=== PATIENT | male | born 1940 | race Caucasian/White ===

== ENCOUNTER 2018-09-02 00:39 | Outpatient (CLI) | payer MEDICARE, SELFPAY ==
[2018-09-02 08:07] LABS: HCT 40.1 % (40.0-50.0); HGB 13.1 g/dL (13.5-17.5); Mean Corp. HGB Concentration 32.7 g/dL (32.0-36.0); Mean Corpuscular Hemoglobin 32.2 pg (27.0-33.0); Mean Corpuscular Volume 98.5 fL (80-95); Platelet Count 262 x1000/uL (130-400); RBC 4.07 m/cumm (4.50-6.00); RBC Distribution Width 13.9 % (11.8-14.1); White Blood Cell Count 7.07 k/cumm (4.4-10.8)
[2018-09-02 09:21] LABS: ALT 32 U/L (12-78); AST 24 U/L (15-37); Albumin 3.4 g/dL (3.4-5.0); Alkaline Phosphatase 116 U/L (46-116); Anion Gap 8.3 mmol/L (3-11); BUN 15 mg/dL (7-18); Bilirubin, Total 0.7 mg/dL (0.2-1.0); CO2 29.7 mmol/L (21.0-32.0); CREATININE 1.12 mg/dL (0.70-1.30); Calcium 8.8 mg/dL (8.5-10.1); Chloride 104 mmol/L (98-107); Cholesterol 125 mg/dL (50-200); Glucose 87 mg/dL (70-100); HDL Cholesterol 44 mg/dL (40-60); LDL CHOLESTEROL 70 mg/dL (<100); Potassium 4.2 mmol/L (3.5-5.1); Sodium 142 mmol/L (136-145); TSH (W/Ref FT4) 5.84 uIU/mL (0.358-3.74); Total Protein 6.7 g/dL (6.4-8.2); Triglyceride 57 mg/dL (30-150)
[2018-09-02 09:41] LABS: FREE T4 0.93 ng/dL (0.76-1.46)
== END 2018-09-02 00:59 ==
PROVIDERS: PCP Nurse Practitioner; Visit Provider Nurse Practitioner
DX: E78.00 Pure hypercholesterolemia, unspecified (principal); E03.9 Hypothyroidism, unspecified; I10 Essential (primary) hypertension
CPT/HCPCS: 36415; 80053; 80061; 83721; 85027; 84439; 84443

== ENCOUNTER 2019-05-28 10:58 | Outpatient (REF) | payer MEDICARE, SELFPAY | END 2019-05-28 11:18 | LOC: LBN 10:58 | PROVIDERS: PCP Nurse Practitioner; Visit Provider Nurse Practitioner | DX: R82.90 Unspecified abnormal findings in urine (principal) | CPT/HCPCS: 87086 ==

== ENCOUNTER 2019-07-31 07:05 | Outpatient (CLI) | payer MEDICARE, SELFPAY ==
[2019-07-31 08:54] LABS: ALT 26 U/L (16-63); AST 23 U/L (15-37); Albumin 3.5 g/dL (3.4-5.0); Alkaline Phosphatase 120 U/L (46-116); Anion Gap 8.4 mmol/L (3-11); BUN 11 mg/dL (7-18); Bilirubin, Total 0.7 mg/dL (0.2-1.0); CO2 29.6 mmol/L (21.0-32.0); CREATININE 1.18 mg/dL (0.70-1.30); Calcium 8.7 mg/dL (8.5-10.1); Calculated LDL 82 mg/dL; Chloride 106 mmol/L (98-107); Cholesterol 137 mg/dL (<200); Estimated GFR 59.25 (mL/min/1.73m2); Glucose 81 mg/dL (74-106); HDL Cholesterol 40 mg/dL (40-60); Potassium 4.3 mmol/L (3.5-5.1); Sodium 144 mmol/L (136-145); TSH (W/Ref FT4) 3.66 uIU/mL (0.36-3.74); Total Protein 6.6 g/dL (6.4-8.2); Triglyceride 75 mg/dL (<150)
== END 2019-07-31 07:25 ==
PROVIDERS: PCP Nurse Practitioner; Visit Provider Nurse Practitioner
DX: E78.5 Hyperlipidemia, unspecified (principal); E03.9 Hypothyroidism, unspecified; I10 Essential (primary) hypertension
CPT/HCPCS: 36415; 80053; 80061; 84443

== ENCOUNTER 2020-10-26 03:16 | Outpatient (CLI) | payer MEDICARE, SELFPAY ==
[2020-10-26 08:41] LABS: HCT 39.9 % (40.0-50.0); HGB 12.8 g/dL (13.5-17.5); MCH 31.8 pg (27.0-33.0); MCHC 32.1 % (32.0-36.0); MCV 99.3 fL (80-95); MPV 10.5 fL (8.0-11.0); Platelet Count 242 10^3/uL (130-400); RBC 4.02 10^6/uL (4.36-5.78); RDW 14.6 % (11.8-14.1); RDW-SD 54.1 fL; WBC 8.44 10^3/uL (4.4-10.8)
[2020-10-26 09:56] LABS: ALT 31 U/L (16-63); AST 21 U/L (15-37); Albumin 3.5 g/dL (3.4-5.0); Alkaline Phosphatase 115 U/L (46-116); Anion Gap 6.2 mmol/L (3-11); BUN 16 mg/dL (7-18); Bilirubin, Total 0.6 mg/dL (0.2-1.0); CO2 30.8 mmol/L (21.0-32.0); CREATININE 1.2 mg/dL (0.70-1.30); Calcium 8.8 mg/dL (8.5-10.1); Calculated LDL 82 mg/dL (<100); Chloride 102 mmol/L (98-107); Cholesterol 149 mg/dL (<200); Estimated GFR 57.96 (mL/min/1.73m2); Glucose 84 mg/dL (74-106); HDL Cholesterol 47 mg/dL (40-60); Potassium 4.4 mmol/L (3.5-5.1); Sodium 139 mmol/L (136-145); TSH (W/Ref FT4) 1.83 uIU/mL (0.36-3.74); Total Protein 6.6 g/dL (6.4-8.2); Triglyceride 102 mg/dL (<150)
== END 2020-10-26 03:17 | disposition home or self-care (01) ==
LOC: LBO 03:16
PROVIDERS: Nurse Practitioner; PCP Nurse Practitioner Adult Health; Visit Provider Nurse Practitioner Adult Health
DX: I10 Essential (primary) hypertension (principal); E78.00 Pure hypercholesterolemia, unspecified; E78.2 Mixed hyperlipidemia; N40.0 Benign prostatic hyperplasia without lower urinary tract symptoms; E03.9 Hypothyroidism, unspecified
CPT/HCPCS: 36415; 80053; 80061; 85027; 84443

== ENCOUNTER 2020-11-05 04:52 | Emergency (ER) | payer MEDICARE, SELFPAY ==
[2020-11-05] VITALS (48 sets, daily range): BP systolic 127–183; BP diastolic 84–108; PULSE 61–85; RESP 11–20; TEMP 36.6; O2SAT 92–99
--- NOTE | 2020-11-05 04:54 | ED.GENADUL_ITS ---
Discharge Plan Disposition Patient Disposition: HOME Condition: Good Discharge Details Clinical Impression: Positional lightheadedness Primary Care Provider: Diane Ochoa ED Provider: Azeem Cronin Home Meds and New Rx's Prescriptions: Continued atorvastatin 40 mg tablet 40 mg PO DAILY Qty: 90 RF: 3 doxazosin [Cardura] 4 mg tablet 4 mg PO QHS Qty: 90 RF: 4 levothyroxine 75 mcg tablet 75 mcg PO DAILY Qty: 90 RF: 3 fluticasone propionate 50 mcg/actuation spray,suspension 2 spray VERONIKA DAILY Qty: 18.2 RF: 12 gabapentin 300 mg capsule 600 mg PO TID Qty: 180 RF: 3 sucralfate 1 gram tablet 1 g PO QID Qty: 360 RF: 3 paroxetine HCl 10 mg tablet 10 mg PO DAILY Qty: 90 RF: 3 Discharge Instructions Additional Instructions: Your work-up here today including EKG, laboratory studies and urine studies look good. Blood pressure has been running a little high so recommend checking at home once a day periodically and making a log. Follow-up with primary care if continued symptoms. Return to ED for neurologic changes, passing out, chest pain, shortness of breath, other concerns Referrals: Diane Ochoa, [facility] [Primary Care Provider] - Medical Decision Making <Naren Mena MD - Last Filed: 11/05/20 06:35> Patient presents to ED with complaint of dizziness. In parsing this out, it does not appear to be vertigo but more syncopal type symptoms. Indeed, he is describing orthostatic changes when trying to stand. No associated neurologic changes. Pain and numbness in his lower extremities is not new and is currently being treated with steroids and gabapentin. He has no neurologic deficits. We will get orthostatics. His EKG shows no acute changes. Will obtain laboratory studies and urinalysis and observe over the couple of hours for any evidence of arrhythmia. 06:30 -patient is not orthostatic though his blood pressure is elevated compared to what he is normally, according to him. Systolic does go down with standing but there is no change in his pulse and he is not on beta-rusty. There have been no arrhythmias. Laboratory studies are unremarkable. No significant electrolyte abnormalities, anemia. Troponin is negative. Urinalysis is negative. I have discussed all results with patient and . Patient now more focused on the pain that he feels in his legs below his knees. This sounds more neuropathic in nature and has been present previously. He has actually been on gabapentin for some time. Patient ambulated to bathroom with no symptoms. At this point plan is for repeat EKG and troponin at 8 AM. If unchanged and negative plan discharge home with follow-up at primary care. Monitor blood pressures at home. Medical Records Medical records reviewed: Yes I reviewed the patient's medical records. Lab Data Lab results reviewed: Yes I reviewed the patient's lab results. ECG Data Attestation: I personally reviewed and interpreted this ECG (s) as follows: Prior ECG tracings: not available for review Interpretation: see EKG <Azeem Cronin MD - Last Filed: 11/05/20 08:46> pt remains stable without deficits on neuro exam ambulating without assistance. second troponin and ecg unchanged, discussed with pt and he is comfortable with discharge as discussed with Dr. Mena and will follow up with his primary care provider this week, and customary return precautions given ECG Data Attestation: I personally reviewed and interpreted this ECG (s) as follows: Prior ECG tracings: not available for review Interpretation: sinus rhythm, rate of 65, pr 201, no acute changes from first ekg HPI <Naren Mena MD - Last Filed: 11/05/20 06:35> General Mode of arrival: ambulatory . Date/Time Provider Initiated Documentation: 11/05/20 04:54 . Limitations to Documentation: no limitations . Information obtained by: patient, RN notes reviewed and old records reviewed . HPI Narrative: Patient presents to ED with complaint of dizziness. Patient reports getting up to go to the bathroom this morning. When he stood up felt dizzy, lightheaded, weak and felt like he might pass out. He had to sit down. He has intermittently had pain and numbness in his lower legs since his second Covid vaccine. He experienced this this morning as well, but again this is not a new sensation. He did not feel spinning sensation and he was able to ambulate but felt extremely weak in the legs, unsteady. He did not feel like he was intoxicated and was not staggering. He denies having any chest pain or pressure. He did have a mild headache which is resolved. He had mild nausea but no vomiting. He has not been ill and denies any vomiting or diarrhea. He is drinking well. He has not a known diabetic. He has no fever or urinary symptoms. He has no back pain. He was ambulatory into the ED without diffic ulty Related Data Home Medications Medication Instructions Recorded Confirmed fluticasone propionate 50 2 spray VERONIKA DAILY #18.2 ml 06/01/20 11/05/20 mcg/actuation nasal spray,suspension gabapentin 300 mg capsule 600 mg PO TID #180 tab-cap 06/01/20 11/05/20 sucralfate 1 gram tablet 1 g PO QID #360 tab 06/08/20 11/05/20 atorvastatin 40 mg tablet 40 mg PO DAILY #90 tab-cap 09/12/20 11/05/20 doxazosin 4 mg tablet 4 mg PO QHS #90 tab 09/12/20 11/05/20 levothyroxine 75 mcg tablet 75 mcg PO DAILY #90 tab-cap 09/12/20 11/05/20 paroxetine HCl 10 mg tablet 10 mg PO DAILY #90 tab 10/24/20 11/05/20 Previous Rx's Medication Instructions Recorded fluticasone propionate 50 2 spray VERONIKA DAILY #18.2 ml 06/01/20 mcg/actuation nasal spray,suspension gabapentin 300 mg capsule 600 mg PO TID #180 tab-cap 06/01/20 sucralfate 1 gram tablet 1 g PO QID #360 tab 06/08/20 atorvastatin 40 mg tablet 40 mg PO DAILY #90 tab-cap 09/12/20 doxazosin 4 mg tablet 4 mg PO QHS #90 tab 09/12/20 levothyroxine 75 mcg tablet 75 mcg PO DAILY #90 tab-cap 09/12/20 paroxetine HCl 10 mg tablet 10 mg PO DAILY #90 tab 10/24/20 Allergies Allergy/AdvReac Type Severity Reaction Status Date / Time diclofenac AdvReac Intermediate gi upset Verified 11/05/20 05:03 alcohol AdvReac Unknown hx of etoh Verified 11/05/20 05:03 abuse Review of Systems <Naren Mena MD - Last Filed: 11/05/20 06:35> Narrative: As documented in HPI otherwise negative as below. 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 Father No problems noted. Grandfather No problems noted. Grandfather No problems noted. Grandmother No problems noted. Grandmother No problems noted. Social History Smoking/Tobacco Use Status: Former Tobacco Use Quit Date: 07/15/89 Pack-years: 25 Smoking risk assessment performed?: Yes Alcohol Intake: former Drug use: Never Substance use type: does not use Housing: apartment current occupation: care takers at [employer] Working smoke detector in home: Yes Carbon monox detector in home: Yes Do you feel safe at home: Yes Do you feel safe in your relationship?: Yes Exam <Naren Mena MD - Last Filed: 11/05/20 06:35> Narrative Exam Narrative: Const: WDWN elderly male in NAD. HEENT: NC/AT. Normal facial exam. Eyes: PERRL and EOMI. No nystagmus. Normal conjunctiva and sclera. Neck: Supple. Trachea midline. Lungs: Normal respiratory effort. Lungs are clear. Cor: RRR with murmur heard at apex. Good radial pulses. GI: Soft. NT/ND. No guarding or rebound. Neuro: A+O x 3. Normal speech, mentation, gait. Cranial nerves II - XII grossly intact. No gross motor or sensory deficit. Ext: No C/C/E. Skin: Warm and dry without rash. Sign Out <Naren Mena MD - Last Filed: 11/05/20 06:35> Sign Out Data: Sign Out Comment: Pending repeat EKG and troponin Last updated by Naren Mena MD at 11/05/20 07:45
--- NOTE | 2020-11-05 05:00 | RT.EKG_ITS ---
APPROVED REPORT Exam: Resting ECG Patient Location: E HR:70 bpm ECG Measurements Heart Rate 70 AXIS IN 203 P 1 QRSd 90 QRS -33 QT 419 T 56 QTc 452 Conclusion Sinus rhythm...normal P axis, V-rate 60- 99 Inferior infarct, old...Q >35mS, II III aVF Consider anterior infarct...Q >30mS in V2-V5 I have reviewed and interpreted ECG and agree with software generated interpretation.
[2020-11-05 05:24] LABS: Abs Immature Grans 0.02 10^3/uL (0.0-0.06); Absolute Basophil Count 0.07 10^3/uL (0.0-0.2); Absolute Eosinophil Count 0.37 10^3/uL (0.0-0.7); Absolute Monocyte Count 0.53 10^3/uL (0.1-0.8); Absolute Neutrophil Count 3.24 10^3/uL (1.2-6.7); Basophils % 1.2; Eosinophils % 6.2; HCT 40.5 % (40.0-50.0); HGB 12.8 g/dL (13.5-17.5); Immature Grans % 0.3; Lymphocytes % 28.7; MCH 31.8 pg (27.0-33.0); MCHC 31.6 % (32.0-36.0); MCV 100.7 fL (80-95); MPV 10.2 fL (8.0-11.0); Monocytes % 8.9; Neutrophils % 54.7; Nucleated RBC 0 %; Platelet Count 237 10^3/uL (130-400); RBC 4.02 10^6/uL (4.36-5.78); RDW 14.3 % (11.8-14.1); RDW-SD 53.5 fL; WBC 5.93 10^3/uL (4.4-10.8)
[2020-11-05 05:38] LABS: ALT 24 U/L (16-63); AST 18 U/L (15-37); Albumin 3.2 g/dL (3.4-5.0); Alkaline Phosphatase 118 U/L (46-116); Anion Gap 5.4 mmol/L (3-11); BUN 9 mg/dL (7-18); Bilirubin, Total 0.4 mg/dL (0.2-1.0); CO2 30.6 mmol/L (21.0-32.0); CREATININE 1.4 mg/dL (0.70-1.30); Calcium 8.2 mg/dL (8.5-10.1); Chloride 106 mmol/L (98-107); Estimated GFR 48.52 (mL/min/1.73m2); Glucose 93 mg/dL (74-106); Magnesium 1.8 mg/dL (1.8-2.4); Potassium 4.5 mmol/L (3.5-5.1); Sodium 142 mmol/L (136-145); Total Protein 6.4 g/dL (6.4-8.2); Troponin I < 0.05 ng/mL (<0.06)
[2020-11-05 06:13] LABS: Bilirubin Negative (Negative); Blood Negative (Negative); Clarity Clear (Clear); Glucose Negative (Negative); Ketones Negative (Negative); Leukocyte Esterase Negative (Negative); Nitrite Negative (Negative); Urobilinogen 0.2 EU/dL (Up TO 0.2); pH 7.5 (5-8)
--- NOTE | 2020-11-05 07:45 | RT.EKG_ITS ---
APPROVED REPORT Exam: Resting ECG Patient Location: E HR:65 bpm ECG Measurements Heart Rate 65 AXIS HI 201 P 10 QRSd 85 QRS -30 QT 418 T 47 QTc 435 Conclusion Sinus rhythm...normal P axis, V-rate 60- 99 Ventricular premature complex...V complex w/ short R-R interval Left axis deviation...QRS axis (-30,-90) Consider anterior infarct...Q >30mS in V2-V5
[2020-11-05 08:26] LABS: Troponin I < 0.05 ng/mL (<0.06)
== END 2020-11-05 08:49 | disposition home or self-care (01) ==
PROVIDERS: Emergency Medicine; Emergency Provider Emergency Medicine; PCP Nurse Practitioner Adult Health
DX: R42 Dizziness and giddiness (principal); R03.0 Elevated blood-pressure reading, without diagnosis of hypertension
CPT/HCPCS: 80053; 93005; 99283; 81003; 83735; 84484; 85025; 93010

== ENCOUNTER 2021-02-02 03:30 | Outpatient (CLI) | payer MEDICARE, SELFPAY ==
[2021-02-02 10:12] LABS: Iron 97 ug/dL (65-175); Total Iron Binding Capacity 281 ug/dL (250-450)
[2021-02-02 10:37] LABS: Anion Gap 8.8 mmol/L (3-11); BUN 8 mg/dL (7-18); CO2 29.2 mmol/L (21.0-32.0); CREATININE 1.3 mg/dL (0.70-1.30); Chloride 104 mmol/L (98-107); Estimated GFR 52.85 (mL/min/1.73m2); Ferritin 24 ng/mL (26-388); Folate 5.1 ng/mL (8.6-20.0); Glucose 86 mg/dL (74-106); Potassium 4.4 mmol/L (3.5-5.1); Sodium 142 mmol/L (136-145); Vitamin B12 822 pg/mL (193-986)
== END 2021-02-02 03:31 | disposition home or self-care (01) ==
LOC: LBO 03:30
PROVIDERS: PCP Nurse Practitioner Adult Health; Visit Provider Nurse Practitioner Adult Health
DX: I10 Essential (primary) hypertension (principal); D64.9 Anemia, unspecified; R71.8 Other abnormality of red blood cells
CPT/HCPCS: 36415; 80048; 82607; 82728; 82746; 83540; 83550

== ENCOUNTER 2021-03-09 15:38 | Outpatient (REF) | payer MEDICARE, SELFPAY ==
[2021-03-11 17:34] LABS: COVID-19 RT-PCR UVMMC Result Positive (Negative)
== END 2021-03-09 15:39 | disposition home or self-care (01) ==
LOC: LBN 15:38
PROVIDERS: PCP Nurse Practitioner Adult Health; Visit Provider Nurse Practitioner
DX: Z20.822 Contact with and (suspected) exposure to COVID-19 (principal)
CPT/HCPCS: U0003

== ENCOUNTER 2021-11-02 02:28 | Outpatient (CLI) | payer MEDICARE, SELFPAY ==
[2021-11-02 09:02] LABS: Anion Gap 0.8 mmol/L (3-11); BUN 12 mg/dL (7-18); CO2 32.2 mmol/L (21.0-32.0); CREATININE 1.1 mg/dL (0.70-1.30); Calcium 8.3 mg/dL (8.5-10.1); Calculated LDL 83 mg/dL (<100); Chloride 104 mmol/L (98-107); Cholesterol 147 mg/dL (<200); Glucose 84 mg/dL (74-106); HDL Cholesterol 44 mg/dL (40-60); Sodium 137 mmol/L (136-145); TSH (W/Ref FT4) 2.15 uIU/mL (0.36-3.74); Triglyceride 101 mg/dL (<150); Vitamin B12 682 pg/mL (193-986)
== END 2021-11-02 02:29 | disposition home or self-care (01) ==
LOC: LBO 02:28
PROVIDERS: PCP Nurse Practitioner Adult Health; Referring Provider Nurse Practitioner Adult Health; Visit Provider Nurse Practitioner Adult Health
DX: E78.00 Pure hypercholesterolemia, unspecified; D64.9 Anemia, unspecified; E03.9 Hypothyroidism, unspecified; Z51.81 Encounter for therapeutic drug level monitoring
CPT/HCPCS: 36415; 80048; 80061; 82607; 84443

== ENCOUNTER → 2022-01-26 09:22 | Outpatient (CLI) | payer MEDICARE, SELFPAY ==
--- NOTE | 2022-01-26 09:00 | DI.RAD_ITS ---
Exam(s) XR CHEST 2V PA LATERAL EXAM: XR CHEST 2V PA LATERAL CLINICAL HISTORY: 1 month of cough, dyspnea, bronchitis, J40 TECHNIQUE: 2D digital imaging was performed of the chest. Two images were obtained. PA and lateral views were obtained. COMPARISON: CR CHEST 2 VIEWS PA,LAT from 06/21/2010 FINDINGS: There is poor inspiration with crowding of the vasculature. MEDIASTINUM: Normal. HEART: Normal. PULMONARY VASCULATURE: Normal. LUNGS: Nonspecific increased opacities are seen in the lung bases. Pneumonia cannot be excluded. PLEURAL SPACE: No pleural effusion or pneumothorax. BONE:Within normal limits for the patient's age. OTHER FINDINGS:Normal. IMPRESSION: Nonspecific basilar opacities. This may in part be due to poor inspiration, but an infectious or inf lammatory process cannot be excluded. Please correlate clinically. DATA REPOSITORY: RADIATION DOSE DELIVERED:
--- OUTSIDE RECORDS SUMMARY | 2022-01-26 09:30 | XMS_ITS | Clinical Summary ---
:1940 Author Organization [facility] [place] [address] Care Team Providers Name Role Phone Chantel Smith Benja DAN Primary Care Provider Allergies No known active allergies Medications Medication Sig Dispensed Refills Start Date End Date Status doxazosin (CARDURA) 4 Take 4 mg by 0 Active mg tablet mouth nightly. atorvastatin (Lipitor) TAKE ONE TABLET 0 01/10/2021 Active 40 mg Tablet BY MOUTH EVERY DAY fluticasone propionate INSTILL 2 SPRAYS 0 03/17/2021 Active (Flonase) 50 IN EACH NOSTRIL mcg/actuation [place], ONCE DAILY Suspension folic acid (Folvite) 1 TAKE ONE TABLET 0 03/07/2021 Active mg Tablet BY MOUTH EVERY DAY gabapentin (Neurontin) TAKE TWO CAPSULES 0 Active 300 mg Capsule BY MOUTH THREE TIMES A DAY levothyroxine TAKE ONE TABLET 0 01/27/2021 Active (Synthroid) 75 mcg BY MOUTH EVERY Tablet DAY losartan (Cozaar) 50 mg TAKE ONE TABLET 0 12/19/2020 Active Tablet BY MOUTH EVERY DAY FOR BLOOD PRESSURE ondansetron (Zofran) 4 TAKE 1 TABLET BY 0 12/20/2020 Active mg Tablet MOUTH 3 TIMES A DAY NEEDED FOR NAUSEA AND VOMITING PARoxetine (Paxil) 10 TAKE ONE TABLET 0 03/07/2021 Active mg Tablet BY MOUTH EVERY DAY FOR ANXIETY sucralfate (Carafate) 1 TAKE ONE TABLET 0 03/03/2021 Active gram Tablet BY MOUTH FOUR TIMES A DAY triamcinolone (Kenalog) Apply twice daily 15 g 1 03/31/20 21 Active 0.1 % Cream to left upper buttock for 2-3 weeks until clears then D/C Active Problems Problem Noted Date GERD (gastroesophageal reflux disease) 03/25/2012 IBS (irritable bowel syndrome) 03/25/2012 Anxiety 03/25/2012 Allergic rhinitis 03/25/2012 H/O alcohol abuse 03/25/2012 Chronic back pain 03/25/2012 Overview: Chronic diffuse back pain Asthma 03/25/2012 BPH (benign prostatic hyperplasia) 03/25/2012 PVC (premature ventricular contraction) 03/25/2012 H/O sciatica 03/25/2012 Social History Tobacco Use Types Packs/Day Years Used Date Former Smoker Smokeless Tobacco: Never Used Sex Assigned at Date Recorded Not on file Last Filed Vital Signs Vital Sign Reading Time Taken Comments Blood Pressure 129/78 03/25/2012 12:18 PM EDT Pulse 68 03/25/2012 12:18 PM EDT Temperature - - Respiratory Rate - - Oxygen Saturation - - Inhaled Oxygen Concentration - - Weight 81.6 kg (180 lb) 03/25/2012 12:18 PM EDT Height 175.3 cm (5' 9) 03/25/2012 12:18 PM EDT Body Mass Index 26.58 03/25/2012 12:18 PM EDT Plan of Treatment Health Maintenance Due Date Last Done Comments Covid-19 Vaccine (#1) 1945 Pneumoccocal Vaccine: 65+ (1 - PCV) 1944 Tdap adult 1957 Tetanus vaccine 1957 Zoster vaccine (1 of 2) 1988 Advance Directive 1993 Influenza (Flu) vaccine (1 of 1 - Influenza standard 03/15/2022 series) Insurance Payer Benefit Plan / Subscriber ID Effective Dates Phone Addre ss Type Group MEDICARE MEDICARE PART A [id number] 2020-Presen [id number] [facility] [place] [address] Care Teams Assistant Property Manager Relationship Specialty Start Date End Date Chantel Smith APRN PCP - General Internal Medicine 02/23/[address] [place] [address]
--- OUTSIDE RECORDS SUMMARY | 2022-01-26 09:30 | XMS_ITS | Encounter Summary ---
:1940 [place] [address] Care Team Providers Name Role Phone Sonny Tubbs DO Primary Care Provider Encounter Details Date Type Department Care Team Description 03/28/2012 Telephone [place] [facility] [place] Cosme APRN [facility] [place] [address] [place] [address] [place] [address] [phone] (Wo rk) Social History Tobacco Use Types Packs/Day Years Used Date Never Smoker Sex Assigned at Date Recorded Not on file documented as of this encounter Miscellaneous Notes Telephone Encounter - Judy Cosme APRN - 03/28/2012 2:15 PM EDT Called Mr. Cifuentes with regards to his lab results. He reports that Protonix did not agree with him since he felt awful while taking it, caused more burning. However, has noted that with adhering the GERD dietary and lifestyle modifications less symptoms. Used to eat then go to bed two hours later. Preston mmended restarting omeprazole and to call me in 2 weeks. If symptoms persists then will schedule forEGD with Liu pH study. documented in this encounter Plan of Treatment Not on filedocumented as of this encounter Visit Diagnoses Not on filedocumented in this encounter Care Teams Ocean Export Coordinator Relationship Specialty Start Date End Date Sonny Tubbs DO PCP - General 01/18/12 02/22/[address] [place] [address] documented as of this encounter
--- OUTSIDE RECORDS SUMMARY | 2022-01-26 09:30 | XMS_ITS | Encounter Summary ---
:1940 Author Organization [facility] Address [address] [place] [address] Care Team Providers Name Role Phone Unavailable Primary Care Provider Unavailable Encounter Details Date Type Department Care Team Description 03/14/2009 Orders Only [facility] Mu Glaser MD Laboratory Services - [address] [place] [address] [place] [address] [place] [address] [phone] Social History Tobacco Use Types Packs/Day Years Used Date Never Assessed Sex Assigned at Date Recorded Not on file documented as of this encounter Plan of Treatment Not on filedocumented as of this encounter Procedures Procedure Name Priority Date/Time Associated Diagnosis Comme [facility] SURGICAL PATHOLOGY Routine 03/14/2009 0:00 EDT Re sults for this procedure are i n the results section. documented in this encounter Results SURGICAL PATHOLOGY (03/14/2009 0:00 EDT) Pathology Report: SURGICAL PATHOLOGY REPORT ? ES MORRIS Reports generated via electr multiBIND biotec interface contain original data; ? LAB however they are lacking the format of the original report. ? Caution should be taken when reading/interpreting unformatted reports. ? Name: ? ARNOLD, IAN ? Accession #: ? [id number] ? : ? 1940 (Age: 68) ??M ? Collec t Date: ? 03/14/2009 ? Location: ? [facility] ? R eceive Date: ? 03/14/2009 ? Provider: WILLIAM FREDERICKELSON MD ? Copy to: LARA F FABIO DO ? Final Pathologic Diagnosis: ? Esophagus, 38 cm, bio psies: ? 1. ?Oxyntic typ e mucosa with mild chronic inflammation. ? 2. ? Features suggestive of fundic gland polyp. ? 3. ? No squamous epithel ium identified. ? 4. ? No dysplasia or int estinal metaplasia present. ? 5. ? No Helicobacter pyl roger-like organisms identified on H+E stain. ? Document reviewed and electr onically signed by: ? VANESSA MOUNT MD ? Report ??Date: 03/16/2009 16 :07 ? By the signature above, the attending physician certifies that he/she has ? personally conducted a gross and/or microscopic examination of the described ? specimens and rendered or co nfirmed the above diagnosis. ? Specimen(s) Received: ? Bx esophagus 38 cm ? Clinical History: ? GERD ? Gross Description: ? Received in Jeffry' s fixative labelled Ian Cifuentes and biopsy ? esophagus 38 cm are four pi [id number] irregular soft tissues ranging from 0.3 x 0.2 x 0.2 cm to 0.6 x 0.2 x 0.1 cm. ??Submitted in (A1) and (A2). ??(Makenzie Arvizu)/mms ? End of Report ? Specimen Performing Organization Address City/State/ZIP Code Phon e Number [facility] [address] [place] [address] SERVICES [facility] [address] [place] [address] documented in this encounter Visit Diagnoses Not on filedocumented in this encounter
--- OUTSIDE RECORDS SUMMARY | 2022-01-26 09:30 | XMS_ITS | Clinical Summary ---
:1940 Author Organization [facility] Address [address] [place] [address] Care Team Providers Name Role Phone Roberto Davis MD Primary Care Provider Social History Tobacco Use Types Packs/Day Years Used Date Never Assessed Sex Assigned at Date Recorded Not on file Plan of Treatment Health Maintenance Due Date Last Done Comments COVID-19 Vaccine (1) 1950 Fall Risk Screening 2003 Care Teams Barrel Assembler Relationship Specialty Start Date End Date Roberto Davis MD PCP - General 03/16/[address] [place] [address] [address] [place] [id number]
--- OUTSIDE RECORDS SUMMARY | 2022-01-26 09:30 | XMS_ITS | Encounter Summary ---
:1940 Author Organization [facility] [place] [address] Care Team Providers Name Role Phone Chantel Smith APRN Primary Care Provider Encounter Details Date Type Department Care Team Description 03/31/2021 Refill Dermatology at [facility] Manisha Carrizales, GAS [place] [place] [address] Social History Tobacco Use Types Packs/Day Years Used Date Former Smoker Smokeless Tobacco: Never Used Sex Assigned at Date Recorded Not on file documented as of this encounter Plan of Treatment Not on filedocumented as of this encounter Visit Diagnoses Not on filedocumented in this encounter Care Teams Medicare Specialist Relationship Specialty Start Date End Date Chantel Smith APRN PCP - General Internal Medicine 02/23/20 [address] [place] [address] documented as of this encounter
--- OUTSIDE RECORDS SUMMARY | 2022-01-26 09:30 | XMS_ITS | Encounter Summary ---
:1940 Author Organization [facility] [place] [address] Care Team Providers Name Role Phone Sonny Tubbs DO Primary Care Provider Reason for Visit Reason Comments GI Problem Encounter Details Date Type Department Care Team Description 03/25/2012 Office Visit Gastroenterology at [facility] Judy Cosme, Chronic back pain; [facility] Betsy mendoza APRN BPH (benign prostatic hyperplasia); [place] [address] [facility] H/O sciatica; [phone] CENTER GERD (gastroesophageal reflux disease); [place], [place] GI problem [id number] Social History Tobacco Use Types Packs/Day Years Used Date Never Smoker Sex Assigned at Date Recorded Not on file documented as of this encounter Last Filed Vital Signs Vital Sign Reading [...] Mass Index 26.58 03/25/2012 12:18 PM EDT documented in this encounter Progress Notes Judy Cosme APRN - 03/25/2012 11:30 AM EDT Subjective: Patient ID: Ian Cifuentes is a 71 y.o. man who presents for further evaluation of his gastrointestinal symptoms at the request of Dr. Tubbs. . HPI Comments: Mr. Ian Cifuentes is a pleasant 71 year old man who presents for further evaluation of his intractable GERD despite taking omeprazole OTC 20 mg BID and Sulcrafate 1 gram qhs. He reports having GERD symptoms for greater than 15 years, which he has treated with OTC antacid with minimal relief of his symptoms. States that his GERD symptoms consist of epigastric pain predominantly with intermittent diffuse abdominal pain that he describes as constrictive, acid taste, gas and bloat on a daily basis. Occasional dysphagia to food but not to liquids and no odynophagia. Reports intermittent chest pain associated with radiation to either his left or right shoulder but no jaw pain or SOB and car diac work up negative per patient (no reports available for review). He denies heartburn, regurgitation, ENT concerns, nausea, vomiting, pre or post prandial symptoms, early satiety or post prandial fullness. No NSAID's but does report h/o NSAID use in the past. Reports waking up during the night withGERD symptoms associated with night sweats but no fever or chills and has elevated head of bed elevated 6 inches. H/o alcoholism and drug use but quit 25 years ago and denies h/o hepatitis. Has tried various dietary and lifestyle modifications with no improvement of his symptoms. No h/o celiac disease, pancreatitis, hepatitis, pancreatitis or gallbladder disease. No food allergies or intolerances. Weight stable. The EGD performed at [facility] in 2010 showed mild distal esophagitis but no biopsy's obtained. Previous EGD sometime in 2008 showed inflammation and biopsy's negative per patient. Admits to altered bowel habits (soft to formed), daily movement, feels empty after defecation and occasionally notes an improvement in his gas and bloat. Denies diarrhea, blood in stool, rectal bleeding, rectal or anal pain and no difficulty experienced with defecation. States that his colonoscopy's have been normal (no reports available for review). He reports having various test performed for his heart and stomach with minimal to no findings. States he had an ultrasound and CT scan done recently and will try toobtain the results for review. Mr. Cifuentes voiced during our discussion that he not really interestedin further testing at this time since he has had many procedures/tests performed. But he is interested in feeling better and would prefer conservative measures. Problem List: Chronic diffuse back pain H/o sciatica pain 20 pack year h/o smoking~quit Recovering alcoholic Anxiety IBS Asthma BPH symptoms Allergic rhinitis Multiple nevi Gerd Allergies: Sulcrafate Medications: Doxazosin Mesylate 4 mg qhs Omeprazole OTC 20 mg BID PMHx: GERD Allergic rhinitis Chronic diffuse low back pain H/o sciatica pain Anxiety IBS BPH symptoms H/o alcoholism Surgical Hx: None Social Hx: Marital status: ; together for 12 years but for 2 Occupation: retired; Children: 2; healthy Tobacco Use: 20 pack year h/o smoking, quit 25 years ago Alcohol Use: recovering alcoholic~quit 25 years ago Substance Use: 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 No ulcerations or erosions. Colonoscopy performed at [facility] 2008: normal per patient (no report available for review) EGD performed at [facility] 2008: normal per patient (no report available for review) Colonoscopy performed in [place] in 1993: normal Review of Systems Constitutional: Negative. HENT: Negative. Respiratory: Negative. Cardiovascular: See HPI Gastrointestinal: See HPI Musculoskeletal: Positive for back pain. Chronic low back pain. Skin: Negative. Neurological: Negative. Hematological: Negative. Psychiatric/Behavioral: Negative. Vital Signs: BP 129/78; P 68; Wt 180 lbs; Ht 5'9 Objective: Physical Exam Vitals reviewed. Constitutional: He is oriented to person, place, and time. He appears well- developed and well-nourished. No distress. HENT: Head: Normocephalic and atraumatic. Mouth/Throat: Oropharynx is clear and moist. No oropharyngeal exudate. Eyes: Conjunctivae and EOM are normal. Pupils are equal, round, and reactive to light. Right eye exhibits no discharge. Left eye exhibits no discharge. No scleral icterus. Neck: Normal range of motion. Neck supple. No JVD present. No tracheal deviation present. No thyromegaly present. Cardiovascular: Normal rate, normal heart sounds and intact distal pulses. Exam reveals no gallop and no friction rub. No murmur heard. Irregular heart rhythm and negative work up per patient. Pulmonary/Chest: Effort normal and breath sounds normal. No stridor. No respiratory distress. He hasno wheezes. He has no rales. He exhibits no tenderness. Abdominal: Soft. Bowel sounds are normal. He exhibits no distension and no mass. Tenderness is present. He has no rebound and no guarding. Slight epigastric discomfort noted on palpation. No radiation. Lymphadenopathy: He has no cervical adenopathy. Neurological: He is alert and oriented to person, place, and time. No cranial nerve deficit. Skin: Skin is warm and dry. No rash noted. He is not diaphoretic. No erythema. No pallor. Psychiatric: He has a normal mood and affect. His behavior is normal. Judgment and thought content normal. Assessment and Plan: 71 year old man who presents for further evaluation of his intractable GERD symptoms despite taking omeprazole and Tagamet qhs as needed. Discussed the pathophysiology, etiology, symptoms, diagnostic tests and treatment options for GERD. ?non erosive reflux disease (NERD), ?non-PPI responder and ?dyspepsia. However, further testing required but he would like to try changing medications for now and ifno improvement of his symptoms then will consider further testing. Plan: 1. Stop omeprazole. 2. Protonix 40 mg take on an empty stomach 30 minutes before dinner. 3. Labs: CBC, CMP, amylase, lipase, IgA, TTIgA today. 4. Consider EGD, esophageal manometry, either impedance or Liu pH study on medications if symptomspersist after 4-6 week trial of Protonix. 5. Obtain results of ultrasound, CT scans and most recent lab work from PCP and [facility] for review. However, if ultrasound of abdomen not performed then will order. 6. Instructed patient to call me in 4-6 weeks with an update. Consider further testing if symptoms persists. Patient understands and is agreeable to the above plan. I spent a total of 60 minutes face to face with this patient; 45 minutes were spent counseling the patient in the medical problems described above. Thank you for the referral, Judy Cosme APRN Section of Gastroenterology and Hepatology [place] [phone] documented in this encounter Plan of Treatment Not on filedocumented as of this encounter Procedures Procedure Name Priority Date/Time Associated Comments Diagnosis DIFFERENTIAL, Routine 03/25/2012 2:11 PM Results for this AUTOMATED EDT procedure are i n the results section. TISSUE Routine 03/25/2012 2:11 PM GERD Results f or this TRANSGLUTAMINASE, IGA EDT (gastroesophageal p rocedure are in reflux disease) the results section. CBC (WITH DIFF) Routine 03/25/2012 2:11 PM GERD Result s for this EDT (gastroesophageal procedure are in reflux disease) the results section. LIPASE Routine 03/25/2012 2:11 PM GERD Results f or this EDT (gastroesophageal procedure are in reflux disease) the results section. IGA Routine 03/25/2012 2:11 PM GERD Results f or this EDT (gastroesophageal procedure are in reflux disease) the results section. AMYLASE Routine 03/25/2012 2:11 PM GERD Results f or this EDT (gastroesophageal procedure are in reflux disease) the results section. COMPREHENSIVE Routine 03/25/2012 2:11 PM GERD Results for this METABOLIC PANEL EDT (gastroesophageal procedu re are in (NON-FASTING) reflux disease) the results section. documented in this encounter Results DIFFERENTIAL, AUTOMATED (03/25/2012 2:11 PM EDT) P athologist Signature Neutrophils % 62.0 34.0 - CERNER 71.0 % MILLENNIUM Neutr Abs (ANC) 3.84 1.50 - CERNER 6.30 MILLENNIUM x10(3)/mcL Lymphocytes % 27.7 19.0 - CERNER 53.0 % MILLENNIUM Lymphocytes Abs 1.7 1.0 - 3.6 CERNER x10(3)/mcL MILLENNIUM Monocytes % 7.1 4.0 - 13.0 CERNER % MILLENNIUM Monocyte Abs 0.4 0.2 - 1.0 CERNER x10(3)/mcL MILLENNIUM Eosinophils % 2.4 0.0 - 7.0 CERNER % MILLENNIUM Eosinophils Abs 0.2 0.0 - 0.5 CERNER x10(3)/mcL MILLENNIUM Basophils % 0.6 0.0 - 2.0 CERNER % MILLENNIUM Basophils Abs 0.0 0.0 - 0.2 CERNER x10(3)/mcL MILLENNIUM Immature Gran % 0.20 0.00 - CERNER 0.66 % MILLENNIUM Comment: Immature granulocytes(IG's)percentage an d absolute count will include metamyelocytes, myelocytes, and promyelo cytes. Blood smears from CBCs yielding IG's will be scanned manually for concor dance. If this scan disagrees with the automated IG or if promyelocytes are not ed, a manual differential will be performed. Lawanda Gran Abs 0.01 0.00 - 0.05 x10(3)/mcL CER NER MILLENNIUM Specimen Anatomical Collection Method Collection Time Receive d Time (Source) Location / / Volume Laterality Blood specimen 03/25/2012 2:11 PM 012 2:18 (specimen) EDT PM EDT Marvin Oglesby MD HEMATOLOGY ORDERABLES Performing Organization Address [facility] [place] [address] CERNER MILLENNIUM Tissue transglutaminase, IgA (03/25/2012 2:11 PM EDT) athologist Signature TTG IgA Ab <4.0 <=3.9 u/ml CERNER MILLENNIUM Comment: Result Interpretation: Negative: ?<4 U/mL Weak Positive: ??4-10 U/mL Positive: ?>10 U/mL Specimen Anatomical Collection Method Collection Time Receive d Time (Source) Location / / Volume Laterality Blood specimen 03/25/2012 2:11 PM 012 8:10 (specimen) EDT AM EDT Resulting Agency Comment Spec In Lab Marvin Oglesby MD IMMUNOLOGY ORDERABLES Performing Organization Address City/[facility] Phon e Number [address] CERNER MILLENNIUM IgA (03/25/2012 2:11 PM EDT) athologist Signature IgA 277 70 - 400 CERNER mg/dL MILLENNIUM Specimen Anatomical Collection Method Collection Time Receive d Time (Source) Location / / Volume Laterality Blood specimen 03/25/2012 2:11 PM 012 2:18 (specimen) EDT PM EDT Resulting Agency Comment Spec In Lab Marvin Oglesby MD IMMUNOLOGY ORDERABLES Performing Organization Address City/[facility]/ZIP [facility] Phon e Number [address] CERNER MILLENNIUM Lipase (03/25/2012 2:11 PM EDT) athologist Signature Lipase 48 0 - 60 CERNER unit/L MILLENNIUM Specimen Anatomical Collection Method Collection Time Receive d Time (Source) Location / / Volume Laterality Blood specimen 03/25/2012 2:11 PM 012 2:18 (specimen) EDT PM EDT Resulting Agency Comment Spec In Lab Marvin Oglesby MD CHEMISTRY ORDERABLES Performing Organization Address City/[facility] Phon e Number [address] CERNER MILLENNIUM Amylase (03/25/2012 2:11 PM EDT) athologist Signature Amylase 65 28 - 100 CERNER unit/L MILLENNIUM Specimen Anatomical Collection Method Collection Time Receive d Time (Source) Location / / Volume Laterality Blood specimen 03/25/2012 2:11 PM 012 2:18 (specimen) EDT PM EDT Resulting Agency Comment Spec In Lab Marvin Oglesby MD CHEMISTRY ORDERABLES Performing Organization Address City/[facility] Phon e Number [address] CERNER MILLENNIUM (ABNORMAL) Comprehensive metabolic panel (non-fasting) (03/25/2012 2:11 PM EDT) athologist Signature Glucose Lvl 86 60 - 199 CERNER mg/dL MILLENNIUM Comment: Diabetes: >=200 mg/dL plus symp toms BUN 21 (H) 10 - 20 mg/dL CERNER MILLENNIU M Creatinine 1.27 0.80 - 1.50 mg/dL CERNER MILL ENNIUM Comment: Please note that the pediatric reference intervals supplied above were not validated at [facility]. Results from pediatri c patients should be interpreted in conjunction to the patient's age, height and muscle mass. Sodium 140 135 - 145 mmol/L CERNER RAFIA NIUM Potassium 4.0 3.5 - 5.0 mmol/L CERNER RAFIA NIUM Comment: Please note: ??Patients with WBC >100,00 0 may have falsely elevated Potassium levels. ??For accurate Potassium quantif ication in these patients send serum separator tube (gold top) for subsequent determinations. ??Contact the Clinical Chemistry Laboratory if there are any qu estions. Chloride 103 98 - 107 mmol/L CERNER MILLENN IUM CO2 29 22 - 31 mmol/L CERNER MILLENNI UM Anion Gap 8 5 - 15 mmol/L CERNER MILLENNIU M Calcium 9.0 8.5 - 10.5 mg/dL CERNER RAFIA NIUM Total Protein 6.9 6.4 - 8.3 gm/dL CERNER MIL LENNIUM Albumin 4.1 3.2 - 5.2 gm/dL CERNER MILLENN IUM AST 21 0 - 39 unit/L CERNER MILLENNIU M ALT 16 0 - 55 unit/L CERNER MILLENNIU M Alk Phos 96 40 - 120 unit/L CERNER MILLENN IUM Total Bilirubin 0.5 0.2 - 1.3 mg/dL CERNER M ILLENNIUM Bili, Direct 0.1 0.0 - 0.3 mg/dL CERNER MILL ENNIUM Estimated GFR 56 (L) >=60 CERNER MILLENNIU M Comment: The National Kidney Disease Education Pr ogram (NKDEP) has recommended all laboratories report estimated GFR (eGFR) along with plasma creatinine measurements to assist you with recognit ion of early kidney disease. Caveats: ??Plasma creatinine should be a t steady-state (unchanged within the past week). For patient s multiply eGFR by 1.2. The MDRD equation was developed using patients be tween the ages of 18 and 70 years. ?? The MDRD equation has not been validated for patients < 18 years of age and should not be used to assess renal function in the pediatric population. ??The MDRD eGFR equation will also overestimate the true GFR of patients above the age of 70. ??This overestimation is variable bu t increases with age. At present, NKDEP does NOT recommend usi ng the MDRD equation for drug dosing purposes and pharmacists should continue to use their current dosing methods. In addition, numerical eGFR values great er than 60 ml/min/1.73 square meters should be treated as > 60, and not an ex act number due to greater inaccuracies at these higher values. Per NKDEP, they classify normal renal function as any GFR >60ml/min/1.73 square meters; chronic kidney disease wh en GFR <60, and renal failure when GFR <15. ??This calculation may not be valid for patients with atypical muscle mass (very lean or obese), acute renal failur e, and in patients with diabetic kidney disease. References: http://nkdep.nih.gov/resources/NKDEP_Sug gestn4Labs_0606_508.pdf http://www.kidney.org/professionals/kls/ pdf/faq_gfr.pdf Mata K, Christopher NA, Guido AK, Gilles TS, Dang AD, Pancho NAA. Relative performance of the MDRD and CKD-EPI equa tions for estimating glomerular filtration rate among patients with vari ed clinical presentations. Clin J Am Soc Nephrol;6:1963-72. Specimen Anatomical Collection Method Collection Time Receive d Time (Source) Location / / Volume Laterality Blood specimen 03/25/2012 2:11 PM 012 2:18 (specimen) EDT PM EDT Resulting Agency Comment Spec In Lab Marvin Oglesby MD CHEMISTRY ORDERABLES Performing Organization Address City/State/ZIP Code Phon e Number [place] [id number] CERNER MILLENNIUM (ABNORMAL) CBC (with Diff) (03/25/2012 2:11 PM EDT) P athologist Signature WBC 6.2 4.0 - 10.0 CERNER x10(3)/mcL MILLENNIUM RBC 4.41 (L) 4.63 - CERNER 6.08 MILLENNIUM x10(6)/mcL Hemoglobin 14.1 13.7 - CERNER 17.5 gm/dL MILLENNIUM Hematocrit 42.0 40.0 - CERNER 51.0 % MILLENNIUM MCV 95.2 (H) 79.0 - CERNER 92.0 fL MILLENNIUM MCH 32.0 25.6 - CERNER 32.2 pg MILLENNIUM MCHC 33.6 32.0 - CERNER 36.5 gm/dL MILLENNIUM Platelets 265 145 - 370 CERNER x10(3)/mcL [facility] RDWSD 46.3 (H) 35.0 - CERNER 46.0 fL [facility] RDWCV 13.3 10.9 - CERNER 14.4 % [facility] MPV 9.6 9.0 - 12.0 CERNER fL [facility] Specimen Anatomical Collection Method Collection Time Receive d Time (Source) Location / / Volume Laterality Blood specimen 03/25/2012 2:11 PM 012 2:18 (specimen) EDT PM EDT Resulting Agency Comment Spec In Lab Marvin Oglesby MD HEMATOLOGY ORDERABLES Performing Organization Address City/State/[place] [address] [facility] documented in this encounter Visit Diagnoses Diagnosis Chronic back pain Backache, unspecified BPH (benign prostatic hyperplasia) Unspecified hyperplasia of prostate with out urinary obstruction and other lower urinary tract symptoms (LUTS) H/O sciatica Personal history of other disorders of n ervous system and sense organs GERD (gastroesophageal reflux disease) Esophageal reflux GI problem Other symptoms involving digestive syste m documented in this encounter Care Teams Manager Interface Relationship Specialty Start Date End Date Sonny Tubbs DO PCP - General 01/18/12 02/22/[address] [place] [address] documented as of this encounter
--- OUTSIDE RECORDS SUMMARY | 2022-01-26 09:30 | XMS_ITS | Encounter Summary ---
:1940 Author Organization [facility] Address [address] [place] [address] Care Team Providers Name Role Phone Monse Davis MD Primary Care Provider Encounter Details Date Type Department Care Team Description 11/06/2005 Results Only [facility] - Monse Love MD [address] [place] [address] [place], [place] [id number] [phone] Social History Tobacco Use Types Packs/Day Years Used Date Never Assessed Sex Assigned at Date Recorded Not on file documented as of this encounter Plan of Treatment Not on filedocumented as of this encounter Procedures Procedure Name Priority Date/Time Associated Diagnosis Comme nts SURGICAL PATHOLOGY Routine 11/06/2005 0:00 EDT Re sults for this procedure are i n the results section. documented in this encounter Results SURGICAL PATHOLOGY (11/06/2005 0:00 EDT) Pathology Report: SURGICAL PATHOLOGY REPORT ES SIMON Reports generated via electronic interface contain roger ginal data; LAB however they are lacking the format of the original re port. Caution should be taken when reading/interpreting unfo rmatted reports. Name: ? IAN GARCIA ? Accession #: ? [id number] ? : ? 1940 (Age: 65) ??M ? Collect Date: ? 11/06/2005 ? Location: ? [facility] ? Receive Date: ? 006 ? Provider: MONSE DAVIS MD Copy to: ? Final Pathologic Diagnosis: ? Skin of back, upper, shave biopsy: - Melanocytic nevus, intradermal type. Microscopic Description: ? Sections are of a papule with mild epidermal hy perplasia and hyperkeratosis. ??There is a proliferation of melanocytes within the dermis. ??The proliferation consists of nests, cords, and strands that diminish in size with descent into the dermis. ??The melanocyt es are slightly enlarged but generally have round-oval nuclei and a moderate amount of cytoplasm. ??The melanocytes show ladler maturation. ??(Dr. Garcia)/[facility] Document reviewed and electronically signed by: Alejandra Garcia MD Report ??Date: 11/08/2005 15:09 By the signature above, the attending physician certif ies that he/she has personally conducted a gross and/or microscopic examin ation of the described specimens and rendered or confirmed the above diagnosi s. Specimen(s) Received: ? Shave biopsy nodule upper back Clinical History: ? BCCA upper back Gross Description: ? Received in formalin labelled Arnold and upper back is a 1.0 x 0.8 x 0.2 cm shave biopsy of a raised, centrally locat ed, fairly well-circumscribed 0.6 x 0.4 cm mota nodule. ??The specimen is trisected and entirely submitted in one cassette. ??(Dr. Licona)/[facility] End of Report Specimen Performing Organization Address City/State/ZIP Code Phon e Number [facility] [address] [place] [address] [facility] [address] [place] [address] documented in this encounter Visit Diagnoses Not on filedocumented in this encounter Care Teams Interior Assemblies Developer Prover Relationship Specialty Start Date End Date Monse Davis MD PCP - General 03/16/[address] [place] [address] [place] [address] documented as of this encounter
--- OUTSIDE RECORDS SUMMARY | 2022-01-26 09:30 | XMS_ITS | Encounter Summary ---
:1940 Author Organization [facility] Address [address] [place] [address] Care Team Providers Name Role Phone Roberto Davis MD Primary Care Provider Encounter Details Date Type Department Care Team Description 03/10/2021 Lab Requisition [facility] Outr Resulting Lab, Pathology & Laboratory Provider [facility] [address], [place] [address] Social History Tobacco Use Types Packs/Day Years Used Date Never Assessed Sex Assigned at Date Recorded Not on file documented as of this encounter Plan of Treatment Not on filedocumented as of this encounter Procedures Procedure Name Priority Date/Time Associated Diagnosis Comme nts COVID-19 TEST [facility] Today 03/09/2021 15:45 LAB PCR EDT COVID-19 TESTING Routine 03/09/2021 15:45 Results for this EDT procedure are i n the results section. documented in this encounter Results COVID-19 TEST [facility] LAB PCR (03/09/2021 15:45 EDT) Specimen Swab - Entire nasopharynx (body structur e) Performing Organization Address City/State/ZIP Code Phon e Number [facility] [address] [place] [address] SERVICES (ABNORMAL) COVID-19 TESTING (03/09/2021 15:45 EDT) COVID-19 rt-PCR Positive (AA) Negative [facility] Result Comment: LABORATORY This test has not been FDA c leared or approved. This test has been authorized by FDA under an EUA for use by authorized laboratories. This test has been authorized only for detection of nucleic acid fro SERVICES m 2018-nCoV, not for any oth er viruses or pathogens. This test is only authorized for the duration of the declaration that circumstances exist justifying the authorization of emergency use of in vitro d iagnostic tests for detectio n and/or diagnosis of 2019-nCoV under section 564(b)(1) of Act, 21 U.S.C ?? 360bbb-3(b) (1), unless the authorization is terminated or revoked sooner. Testing was performed using the shani SARS-CoV-2 assay ([employer] on the Shani 6800 System Performing Lab Shani [address] [facility] Lab [facility] SERVICES Specimen Swab Performing Organization Address City/State/ZIP Code Phon e Number [facility] [address] [place] [address] SERVICES documented in this encounter Visit Diagnoses Not on filedocumented in this encounter Additional Health Concerns Infection Onset Date Last Indicated Resolved Time COVID-19 03/09/2021 03/09/2021 04/08/2021 22:15 EDT documented as of this encounter Care Teams Chief Deputy Clerk/Bailiff Relationship Specialty Start Date End Date Roberto Davis MD PCP - General 03/16/[address] [place] [address] [address] [place], [place] [id number] documented as of this encounter
--- OUTSIDE RECORDS SUMMARY | 2022-01-26 09:30 | XMS_ITS | Encounter Summary ---
:1940 Author Organization [facility] Address [address] [place] [address] Care Team Providers Name Role Phone Unavailable Primary Care Provider Unavailable Encounter Details Date Type Department Care Team Description 06/23/2008 Before PRISM [facility], Converted Visit Maple conversion DO (Maple) [address] [place] [address] [place] [address] (Wo rk) Social History Tobacco Use Types Packs/Day Years Used Date Never Assessed Sex Assigned at Date Recorded Not on file documented as of this encounter Plan of Treatment Not on filedocumented as of this encounter Procedures Procedure Name Priority Date/Time Associated Diagnosis Comme [facility] SURGICAL PATHOLOGY Routine 06/23/2008 0:00 EST Re sults for this procedure are i n the results section. documented in this encounter Results SURGICAL PATHOLOGY (06/23/2008 0:00 EST) Pathology Report: SURGICAL PATHOLOGY REPORT ? [facility] Reports generated via electr wildcraft interface contain original data; ? LAB however they are lacking the format of the original report. ? Caution should be taken when reading/interpreting unformatted reports. ? Name: ? ARNOLD, IAN ? Accession #: ? [id number] ? : ? 1940 (Age: 68) ??M ? Collec t Date: ? 06/23/2008 ? Location: ? [facility] ? R eceive Date: ? 06/24/2008 ? Provider: SONNY F FABIO DO ? Copy to: ? Final Pathologic Diagnosis: ? Skin of abdomen, left lower, punch biopsy: ? 1. ?Melanocytic nevus, compound lentiginous type, with unusual ? architectural features and m ild cytologic atypia. ??See comment. ? - Nevus extends to pe ripheral edge of punch biopsy specimen. ? Comment: ? The biopsy consists o f a lentiginous compound melanocytic nevus with a mild degree of architectural diso rder and cytologic atypia. ??The nevus extends to the edge of the biopsy specimen. ??Correlation with the clinical appearance of the ?? lesion is recommended. ??If this is a small biopsy of a much larger lesion, the ?? histologic features may not be office machines sales representative of the entire lesion. ??( ? Zulma/yvon ? Microscopic Description: ? The epidermis shows m ild hyperplasia consisting of thin and clubbed rete ?? ridges. ??There is a compoun d proliferation of melanocytes. ??The intraepidermal ?? component consists of rare n ests but is predominated by individual cells in a ?? lentiginous pattern. ??The n ests are small and located at the tips of rete ? ridges. ??The individual valdez anocytes are generally evenly spaced along the ? dermal-epidermal junction. ? ?The melanocytes are slightly enlarged and have dark nuclei. ??The dermal compone nt consists of small nests of similar cells. ??There ?? is abundant melanin pigment within the epidermis, stratum corneum, and dermal ?? melanophages. ??(Dr. Garcia)/yarelis gibson ? Document reviewed and electr onically signed by: ? Alejandra Garcia MD ? Report ??Date: 06/28/2008 15 :07 ? By the signature above, the attending physician certifies that he/she has ? personally conducted a gross and/or microscopic examination of the described ? specimens and rendered or co nfirmed the above diagnosis. ? Specimen(s) Received: ? Left lower abd ? Clinical History: ? Punch biopsy, atypica l skin lesion ? Gross Description: ? Received in formalin labelled Arnold and left lower abd is a punch ? biopsy of mota-brown skin whi ch measures 0.3 cm in diameter and 0.1 cm in ? thickness. ??Submitted intac t in one cassette. ??(Dr. Melchor)/kmm ? End of Report ? Specimen Performing Organization Address City/State/ZIP Code Phon e Number [facility] [address] [place] [address] SERVICES [facility] [address] [place] [address] documented in this encounter Visit Diagnoses Not on filedocumented in this encounter
== END ==
PROVIDERS: PCP Nurse Practitioner Adult Health; Visit Provider Family Medicine
DX: J40 Bronchitis, not specified as acute or chronic (principal); R91.8 Other nonspecific abnormal finding of lung field
CPT/HCPCS: 71046

== ENCOUNTER 2023-02-07 03:58 | Outpatient (CLI) | payer MEDICARE, SELFPAY ==
[2023-02-07 07:41] LABS: Abs Immature Grans 0.02 10^3/uL (0.0-0.06); Absolute Basophil Count 0.04 10^3/uL (0.0-0.2); Absolute Eosinophil Count 0.58 10^3/uL (0.0-0.7); Absolute Lymphocyte Count 1.58 10^3/uL (1.2-3.4); Absolute Neutrophil Count 3.38 10^3/uL (1.2-6.7); Basophils % 0.7; Eosinophils % 9.5; HCT 38.7 % (40.0-50.0); HGB 12.5 g/dL (13.5-17.5); Immature Grans % 0.3; Lymphocytes % 25.9; MCH 31.9 pg (27.0-33.0); MCHC 32.3 % (32.0-36.0); MCV 99 fL (80-95); MPV 9.9 fL (8.0-11.0); Monocytes % 8.2; Neutrophils % 55.4; Platelet Count 251 10^3/uL (130-400); RBC 3.92 10^6/uL (4.36-5.78); RDW 13.6 % (11.8-14.1); RDW-SD 49.1 fL
[2023-02-07 08:37] LABS: Anion Gap 5.2 mmol/L (3-11); BUN 12 mg/dL (7-18); CO2 30.8 mmol/L (21.0-32.0); CREATININE 1.2 mg/dL (0.70-1.30); Calcium 8.8 mg/dL (8.5-10.1); Calculated LDL 69 mg/dL (<100); Chloride 105 mmol/L (98-107); Cholesterol 126 mg/dL (<200); Estimated GFR 59.63 (mL/min/1.73m2); Glucose 93 mg/dL (74-106); HDL Cholesterol 43 mg/dL (40-60); Potassium 4.3 mmol/L (3.5-5.1); Sodium 141 mmol/L (136-145); TSH (W/Ref FT4) 2.28 uIU/mL (0.36-3.74); Triglyceride 70 mg/dL (<150)
[2023-02-07 08:40] LABS: Folate > 20.0 ng/mL (8.6-20.0)
== END 2023-02-07 03:59 | disposition home or self-care (01) ==
LOC: LBO 03:58
PROVIDERS: PCP Nurse Practitioner Adult Health; Referring Provider Nurse Practitioner Adult Health; Visit Provider Nurse Practitioner Adult Health
DX: E03.9 Hypothyroidism, unspecified; E53.8 Deficiency of other specified B group vitamins; E78.2 Mixed hyperlipidemia; I10 Essential (primary) hypertension; R71.8 Other abnormality of red blood cells; J45.20 Mild intermittent asthma, uncomplicated
CPT/HCPCS: 36415; 80048; 80061; 82746; 84443; 85025

== ENCOUNTER 2023-11-06 07:40 | Outpatient (CLI) | payer MEDICARE, SELFPAY ==
[2023-11-06 07:34] LABS: HCT 36.4 % (40.0-50.0); HGB 11.7 g/dL (13.5-17.5); MCH 31.8 pg (27.0-33.0); MCHC 32.1 % (32.0-36.0); MCV 99 fL (80-95); MPV 9.7 fL (8.0-11.0); Platelet Count 271 10^3/uL (130-400); RBC 3.68 10^6/uL (4.36-5.78); RDW 13.5 % (11.8-14.1); RDW-SD 49.1 fL; WBC 6.83 10^3/uL (4.4-10.8)
[2023-11-06 09:01] LABS: BUN 12 mg/dL (7-18); CREATININE 1.3 mg/dL (0.70-1.30); Calcium 8.6 mg/dL (8.5-10.1); Chloride 105 mmol/L (98-107); Estimated GFR 53.84 (mL/min/1.73m2); Glucose 98 mg/dL (74-106); Potassium 4.3 mmol/L (3.5-5.1); Sodium 142 mmol/L (136-145); TSH (W/Ref FT4) 2.37 uIU/mL (0.36-3.74)
[2023-11-06 18:56] LABS: Folate >24.0 ng/mL (See Note)
[2023-11-07 19:00] LABS: Calculated LDL 68 mg/dL (<100); Cholesterol 128 mg/dL (<200); HDL Cholesterol 47 mg/dL (40-60); Triglyceride 68 mg/dL (<150)
== END 2023-11-06 07:41 | disposition home or self-care (01) ==
LOC: LBO 07:40
PROVIDERS: PCP Nurse Practitioner Adult Health; Visit Provider Nurse Practitioner Adult Health
DX: E03.9 Hypothyroidism, unspecified (principal); E78.5 Hyperlipidemia, unspecified; N40.0 Benign prostatic hyperplasia without lower urinary tract symptoms; I10 Essential (primary) hypertension; D64.9 Anemia, unspecified
CPT/HCPCS: 36415; 80048; 80061; 85027; 82746; 84443

== ENCOUNTER 2024-02-04 15:55 | Outpatient (REF) | payer MEDICARE, SELFPAY | END 2024-02-04 15:56 | disposition home or self-care (01) | LOC: LBN 15:55 | PROVIDERS: PCP Nurse Practitioner Adult Health; Visit Provider Family Medicine | DX: R30.0 Dysuria (principal); N39.0 Urinary tract infection, site not specified | CPT/HCPCS: 87077; 87086; 87186 ==

== ENCOUNTER → 2024-04-02 08:57 | Outpatient (BNVA) | payer MEDICARE, SELFPAY | PROVIDERS: PCP Nurse Practitioner Adult Health; Referring Provider Nurse Practitioner Adult Health; Visit Provider Internal Medicine | DX: J39.8 Other specified diseases of upper respiratory tract (principal); Z87.898 Personal history of other specified conditions; Z87.891 Personal history of nicotine dependence | CPT/HCPCS: 99214; 82565 ==

== ENCOUNTER 2024-04-03 02:03 | Outpatient (CLI) | payer MEDICARE, SELFPAY ==
[2024-04-03] MEDS: Levalbuterol HFA 15 GM INH 4 PUFF IH (14:33)
[2024-04-03] MEDS: Inhaler, Assist Device 1 EACH MC (14:35)
--- NOTE | 2024-04-06 15:02 | PFT_ITS ---
Date of service: 04/03/24 Time of Service: 13:19 Pulmonary Function Test Result Requesting Provider Sree Saucedo MD Indications: Chronic cough, former 16-fcyq-lyhr smoker, quit 40 years ago. Interpretation Spirometry: Spirometry pre and postbronchodilator showed: 1. No evidence of airway obstruction. No evidence of COPD. 2. No response to bronchodilator, if further evaluation of possible airway reactivity or asthma is clinically indicated, methacholine challenge testing is recommended. 3. The patient care technician instructor comments indicated a good patient effort. 4. The test meant [place] [employer] standards of spirometry. Lung Volumes: Lung volumes by plethysmography showed: 1. No clear evidence of restriction. The total lung capacity was 81% predicted, the forced vital capacity was 87% predicted, slow vital capacity was 77% predicted. 2. Mild, nonspecific decrease in inspiratory capacity 3. No evidence of hyperinflation. Diffusion Capacity: Diffusing capacity by single breath carbon monoxide technique showed: 1. Normal gas exchange. Impression Normal pulmonary function test. Consider methacholine challenge test if further evaluation of possible reactive airways disease is clinically indicated. Please note that the patient's sinus CT scan showed severe pansinusitis on April 06, 2024. See pulmonology note same date. That is the most likely cause of the patient's chronic cough.
== END 2024-04-06 23:59 | disposition home or self-care (01) ==
LOC: RT 02:04
PROVIDERS: PCP Nurse Practitioner Adult Health; Visit Provider Internal Medicine
DX: R05.3 Chronic cough (principal); Z87.891 Personal history of nicotine dependence
CPT/HCPCS: 00123; 94060; 94726; 94729; 70486; 71260; 82565

== ENCOUNTER 2024-04-03 15:21 | Outpatient (REF) | payer MEDICARE, SELFPAY | END 2024-04-03 15:22 | disposition home or self-care (01) | LOC: LBN 15:21 | PROVIDERS: PCP Nurse Practitioner Adult Health; Visit Provider Internal Medicine | DX: J39.8 Other specified diseases of upper respiratory tract (principal); Z87.898 Personal history of other specified conditions; J30.9 Allergic rhinitis, unspecified; U07.1 COVID-19; K21.00 Gastro-esophageal reflux disease with esophagitis, without bleeding; Z87.891 Personal history of nicotine dependence | CPT/HCPCS: 87070; 87205 ==

== ENCOUNTER 2024-04-06 02:02 | Outpatient (CLI) | payer MEDICARE, SELFPAY ==
--- NOTE | 2024-04-06 06:52 | DI.CT_ITS ---
Exam(s) CT CHEST W EXAM: CT CHEST W CLINICAL HISTORY: cough, years-long dyspepsia, COVID, pulm infiltrate TECHNIQUE: Imaging Protocol: Axial computed tomography images with coronal and sagittal reformatted images were created and reviewed CONTRAST MATERIAL: Intravenous: Omnipaque 350Contrast volume:70 mL. COMPARISON: CT ABD PELVIS WITH CONTRAST from 07/10/2010 CR XR CHEST 2V PA LATERAL from 01/26/2022 FINDINGS: Tracheobronchial tree: Patent where visualized. Pulmonary parenchyma: There is a 3 mm nodule in the left lingula. There is a calcified granuloma in the right upper lobe. There is a small ground-glass infiltrate in the right lower lobe. There is at electasis, scarring or infiltrate in the left lingula. Mediastinum and Roxana: No dominant adenopathy or fluid collection. The esophagus is unremarkable. Thyroid gland: Unremarkable. Pleura: No effusion or pneumothorax. Heart: The heart is not dilated. Coronary artery calcifications are present. Mitral and aortic calci fication is also seen. No pericardial effusion. Aorta: The ascending thoracic aorta measures 4.1 x 4.2 cm. Atherosclerotic calcification is present. There is no evidence of dissection. Pulmonary arteries: The pulmonary arteries are insufficiently opacified for evaluating pulmonary embo li due to bolus timing. Upper abdomen: Stable left renal cysts. No follow-up is recommended. Lymph nodes: Within normal limits. Bones: Within normal limits for the patient's age. Soft tissues: Unremarkable. IMPRESSION: 1. Nonspecific ground-glass infiltrate in the right lower lobe. 2. 3 mm left lingular nodule. Solid nodules smaller than 6 mm do not require routine follow-up in all patients with high clinical r isk; however, some nodules smaller than 6 mm with suspicious morphology, upper lobe location, or both may warrant follow-up at 12 months (grade 2A; weak recommendation, high-quality evidence). (Jonatan et al., 2017) Single solid noncalcified nodules. ???Solid nodules smaller than 6 mm (those 5 mm or smaller) do not require routine follow-up in patients at low risk (grade 1C; strong recommendation, low- or very-low- quality evidence). (Jonatan et al., 2017) 3. Ectasia of the ascending thoracic aorta. Unexpected findings RADIATION DOSE DELIVERED: Total DLP DATA REPOSITORY: All CT scans at this facility are submitted to the National Radiology Data Registry (NRDR) Dose Index Registry (DIR) with the [employer] (ACR). RADIATION OPTIMIZATION: All CT scans at this facility use at least one of these dose optimization te chniques: automated exposure control; mA and/or kV adjustment per patient size (includes targeted exa ms where dose is matched to clinical indication); or iterative reconstruction.
[2024-04-06 09:31] LABS: CREATININE 1.4 mg/dL (0.70-1.30); Estimated GFR 49.25 (mL/min/1.73m2)
[2024-04-06] MEDS: Normal Saline - Diluent 50 ML VIAL IJ (09:59)
[2024-04-06] MEDS: Omnipaque 350 MG/ML 500 ML BTL-Imaging package IJ (10:00)
--- NOTE | 2024-04-06 11:15 | DI.CT_ITS ---
Exam(s) CT SINUS WO EXAM: CT SINUS WO CLINICAL HISTORY: recurrent sinusitis, ?infection, ?sinus occlusion, HX CHRONIC COUGH, J32.9. Evalu ate for sinusitis. TECHNIQUE: Imaging Protocol: Axial computed tomography images with coronal and sagittal reformatted images were created and reviewed. COMPARISON: No exams were available for comparison FINDINGS: AXIAL IMAGES: Frontal sinuses: There is mild mucosal thickening in the left frontal sinus. No air-fluid levels are seen. Ethmoid air cells: There is opacification and mucosal thickening of several ethmoid air cells bilater ally. Maxillary sinuses: There is moderate mucosal thickening in the left maxillary sinus. No fluid level is seen. There is complete opacification of the right maxillary sinus. There is thickening of the w all of the sinus consistent with chronic sinus disease. The medial wall is medially displaced and th in. It is nonvisualized in some sections suggesting destruction. The wall projects into the right n ty passageway. There is absence of the right middle and inferior turbinates. There is also loss o f the floor of the right ethmoid air cells. Sphenoid sinus: There is mild mucosal thickening in the sphenoid sinuses bilaterally. No air-fluid l evels are present. Ostiomeatal complexes: There is obstruction of the left ostiomeatal complex. There is erosion of the right ostiomeatal complex. Osseous nasal septum: There is very mild deviation of the nasal septum to the right. There is a smal l spur projecting off the right aspect of the nasal septum. Visualized regional soft tissues: No acute findings. Orbits: Unremarkable. Bones: There is a lucency seen in the maxillary bone at the base of the medial left incisor. Mastoid Air Cells: Normally aerated. IMPRESSION: 1. Opacification of the right maxillary sinus. There are destructive changes involving the medial ri ght maxillary wall in the floor of the right ethmoid air cells. There is thickening of the anterior and lateral ortiz of the right maxillary sinus. The findings suggest chronic sinus disease. The pos sibility of a mucous retention cyst or polyp within the right maxillary sinus should be considered. The findings extend into the right nasal passageway with absence of the ostiomeatal complex and turbi nates on the right. 2. Powl-zk-irzxlcym sinus disease involving the remaining paranasal sinuses. No air-fluid levels are seen. 3. Periodontal disease as described above. 4. ENT and dental consult is recommended. RADIATION DOSE DELIVERED: 104.83mGy.cm Total DLP 104.83mGy.cm Total DLP DATA REPOSITORY: All CT scans at this facility are submitted to the National Radiology Data Registry (NRDR) Dose Index Registry (DIR) with the [employer] (ACR). RADIATION OPTIMIZATION: All CT scans at this facility use at least one of these dose optimization te chniques: automated exposure control; mA and/or kV adjustment per patient size (includes targeted exa ms where dose is matched to clinical indication); or iterative reconstruction.
== END 2024-04-06 02:22 ==
LOC: DI 02:02
PROVIDERS: PCP Nurse Practitioner Adult Health; Visit Provider Internal Medicine
DX: I10 Essential (primary) hypertension (principal); J39.8 Other specified diseases of upper respiratory tract; K21.00 Gastro-esophageal reflux disease with esophagitis, without bleeding; Z87.898 Personal history of other specified conditions; Z87.891 Personal history of nicotine dependence
CPT/HCPCS: 70486; 71260; 82565

== ENCOUNTER 2024-04-22 00:33 | Outpatient (CLI) | payer MEDICARE, SELFPAY ==
--- NOTE | 2024-04-22 08:15 | DI.MRI_ITS ---
Exam(s) MR LUMBAR SPINE WO EXAM: MR LUMBAR SPINE WO CLINICAL HISTORY: Chronic rt low back pain, RLE radiculopathy,m54.10,m54.50. TECHNIQUE: Multiplanar multisequence MRI of the Lumbar spine was performed. COMPARISON: CR XR CHEST 2V PA LATERAL from 01/26/2022 FINDINGS: Bones: The last intervertebral disc space is designated the L5/S1 level for the numbering purpose of this ex amination. The vertebral body heights are well maintained. Alignment: Degenerative dextroscoliosis. The marrow signal characteristics are unremarkable. Cord: The conus tip ends at the T12 level. It is of normal size and signal intensity. T12-L1: Mild loss of disc height. Concentric disc bulging. Facet degenerative changes, greater on t he right. No focal disc herniation is present. Moderate central spinal canal stenosis.Mild bilatera l neural foraminal stenosis. L1-2: Severe loss of disc height. Prominent endplate osteophytes. Facet degenerative changes. No focal disc herniation is present. No central spinal canal stenosis.Moderate right neural foraminal s tenosis. L2-3:Severe loss of disc height. Endplate osteophytes projecting circumferentially. No focal disc h erniation is present. No central spinal canal stenosis.No neural foraminal stenosis. L3-4: Severe loss of disc height. Endplate osteophytes extend eccentric toward the left. Facet dege nerative changes.No focal disc herniation is present. Moderate central spinal canal stenosis.Modera te left neural foraminal stenosis. L4-5:Severe loss of disc height. Prominent endplate osteophytes. Facet degenerative changes. No fo saul disc herniation is present. Mild central spinal canal stenosis.Mild right and moderate severe le ft neural foraminal stenosis. L5-S1: Severe loss of disc height. Circumferential endplate osteophytes. Facet degenerative changes . No focal disc herniation is present. Mild central spinal canal stenosis.Severe bilateral neural foraminal stenosis. The visualized SI joints and sacrum are unremarkable. Soft tissues: The paraspinal soft tissues are unremarkable. Incidental left-sided renal cysts. No follow-up recommended. IMPRESSION: Multilevel severe degenerative disc changes as well as facet degenerative changes combine to produce moderate central canal stenosis at T12-L1 and L3-4 and severe bilateral neural foraminal narrowing at L5-S1. DATA REPOSITORY:
== END 2024-04-22 00:53 ==
LOC: DI 00:34
PROVIDERS: PCP Nurse Practitioner Adult Health; Visit Provider Nurse Practitioner
DX: M54.15 Radiculopathy, thoracolumbar region
CPT/HCPCS: 72148

== ENCOUNTER 2024-06-01 04:55 | Emergency (ER) | payer MEDICARE, SELFPAY ==
[2024-06-01] VITALS (15 sets, daily range): BP systolic 146–181; BP diastolic 93–107; PULSE 73–89; RESP 0–23; TEMP 36.4; O2SAT 95–99
--- NOTE | 2024-06-01 04:45 | RT.EKG_ITS ---
APPROVED REPORT Exam: Resting ECG Reason for Exam: chest pain Patient Location: E HR:84 bpm ECG Measurements Heart Rate 84 AXIS AR 181 P -8 QRSd 82 QRS -32 QT 378 T 46 QTc 447 Conclusion Sinus rhythm...normal P axis, V-rate 60- [address] segment or T wave abnormalities to suggest occlusive WA
--- NOTE | 2024-06-01 05:12 | W.ED.GENAD ---
Discharge Plan Disposition Patient Disposition: Home Condition: Good Discharge Details Clinical Impression: Chronic leg pain, Chronic epigastric pain, Chronic cough Primary Care Provider: Diane Ochoa ED Provider: Aleksandra Carreno Home Meds and New Rx's Prescriptions: Continued atorvastatin 40 mg tablet 40 mg PO DAILY Qty: 90 3RF folic acid 1 mg tablet 1 mg PO DAILY Qty: 90 3RF Rx Instructions: Low folic acid gabapentin 600 mg tablet 600 mg PO TID Qty: 270 1RF levothyroxine 75 mcg tablet 75 mcg PO DAILY Qty: 90 3RF sucralfate 1 gram tablet 1 g PO QID Qty: 360 3RF ipratropium bromide 21 mcg (0.03 %) spray,non-aerosol 2 spray intranasal TID MDD 6 Qty: 30 3RF Rx Instructions: administer 2 sprays into each nostril up to 3 times daily Atrovent HFA 17 mcg/actuation HFA aerosol inhaler 2 puff inhalation QID MDD 8 60 Days Qty: 12.9 4RF Rx Instructions: use 2 puffs 4 times daily (either inhaler OR nebulizer) for cough and phlegm. citalopram [Celexa] 20 mg tablet 20 mg PO DAILY Qty: 90 0RF ondansetron HCl 4 mg tablet See Rx Instructions .ROUTE .COMPLEX Qty: 60 1RF Dose Instruction: TAKE ONE TABLET BY MOUTH TWICE A DAY NEEDED FOR NAUSEA/IBS Rx Instructions: TAKE ONE TABLET BY MOUTH TWICE A DAY NEEDED FOR NAUSEA/IBS lorazepam 0.5 mg tablet 0.5 mg PO ONCE PRN Patient Comments: TAKE 1 TABLET BY MOUTH PRIOR TO MRI NEEDED FOR ANXIETY losartan 50 mg tablet 50 mg PO DAILY Patient Comments: TAKE 1 TABLET BY MOUTH DAILY Discontinued doxazosin 4 mg tablet See Rx Instructions .ROUTE .COMPLEX Qty: 90 3RF Dose Instruction: TAKE ONE TABLET BY MOUTH AT BEDTIME Rx Instructions: TAKE ONE TABLET BY MOUTH AT BEDTIME Discharge Instructions Instructions: Chronic pain Additional Instructions: Call your primary care doctor today to schedule an appointment within the next 72 hours to followup on your visit here. At that visit discuss your blood pressure which is high here in the ED today. Please call followup on the orthopedic referral that was sent from your primary care doctor- the number to the orthopedic office is below. Return to the emergency department for new or worsening symptoms. Referrals: [facility] [Provider Group] Diane Ochoa [employer] [Primary Care Provider] - HPI General Mode of arrival: ambulatory. Date/Time Provider Initiated Documentation: 06/01/24 04:57. Limitations to Documentation: no limitations. Information obtained by: patient and old records reviewed (most recent clinic visit note 05/01/24). HPI Narrative: 83yo M with hx HTN, HLD, anemia, hypothyroid BPH, IBS, GERD, chronic recurrent sinusitis, chronic knee pain, presenting for multiple chronic concerns on arrival- post nasal drip, chronic cough, burning chest pain while coughing, burning epigastric pain, and burning leg pain from the knees down. All of these have been present for several months. No acute worsening of any of these complaints. He states he has seen his primary care doctor for all of these but that they haven't figured it out and he is hoping we can help with this today. Cough is persistent, unchanged, sometimes productive; is seeing pulmonology for this. Epigastric pain is mild, burning, worse with alleve or tylenol, and no aggravating factors. Leg pain is burning, present from the knees down bilaterally, and improved with ambulating. No recent falls or injuries. No numbness, tingling, weakness, or new urinary symptoms. He is taking carafate and gabapentin at home for his leg and epigastric pain without significant improvement. Otherwise in his usual state of health with no fevers, chills, rash, nausea, vomiting, back pain, dysuria, hematuria, numbness, tingling, weakness, or other concerns. Related Data Home Medications ?Medication ?Instructions ?Recorded ?Confirmed ondansetron HCl 4 mg tablet See Rx Instructions .Route 03/30/24 06/01/24 .COMPLEX #60 tabs Atrovent HFA 17 mcg/actuation 2 puff inhalation QID cough 2 04/06/24 06/01/24 aerosol inhaler (ipratropium months #12.9 grams bromide) ipratropium bromide 21 mcg (0.03 2 spray intranasal TID sinus 04/06/24 06/01/24 %) nasal spray congestion #30 mL atorvastatin 40 mg tablet 40 mg PO DAILY #90 tab-caps 04/22/24 06/01/24 folic acid 1 mg tablet 1 mg PO DAILY #90 tabs 04/22/24 06/01/24 gabapentin 600 mg tablet 600 mg PO TID #270 tabs 04/22/24 06/01/24 levothyroxine 75 mcg tablet 75 mcg PO DAILY #90 tab-caps 04/22/24 06/01/24 sucralfate 1 gram tablet 1 g PO QID #360 tabs 04/22/24 06/01/24 citalopram 20 mg tablet (Celexa) 20 mg PO DAILY #90 tabs 05/01/24 06/01/24 lorazepam 0.5 mg tablet 0.5 mg PO ONCE PRN 06/01/24 06/01/24 losartan 50 mg tablet 50 mg PO DAILY 06/01/24 06/01/24 Previous Rx's ?Medication ?Instructions ?Recorded ondansetron HCl 4 mg tablet See Rx Instructions .Route 03/30/24 .COMPLEX #60 tabs Atrovent HFA 17 mcg/actuation 2 puff inhalation QID cough 2 04/06/24 aerosol inhaler (ipratropium months #12.9 grams bromide) ipratropium bromide 21 mcg (0.03 2 spray intranasal TID sinus 04/06/24 %) nasal spray congestion #30 mL atorvastatin 40 mg tablet 40 mg PO DAILY #90 tab-caps 04/22/24 folic acid 1 mg tablet 1 mg PO DAILY #90 tabs 04/22/24 gabapentin 600 mg tablet 600 mg PO TID #270 tabs 04/22/24 levothyroxine 75 mcg tablet 75 mcg PO DAILY #90 tab-caps 04/22/24 sucralfate 1 gram tablet 1 g PO QID #360 tabs 04/22/24 citalopram 20 mg tablet (Celexa) 20 mg PO DAILY #90 tabs 05/01/24 Allergies Allergy/AdvReac Type Severity Reaction Status Date / Time diclofenac AdvReac Intermediate gi upset Verified 06/01/24 05:11 alcohol AdvReac Unknown hx of etoh Verified 06/01/24 05:11 abuse General Stated Complaint: SOB BHAVIK: 3 Review of Systems Narrative: see HPI Exam Narrative Exam Narrative: General: Alert, well appearing, well nourished, in no acute distress. Head: Normocephalic, atraumatic Neck: Trachea midline, ?Neck supple. ENT: ?MMM.? No oropharygeal lesions or exudate. Cardiac: ?RRR, no murmurs appreciated. 2+ symmetric radial pulses. Resp: No respiratory distress. CTAB. Abd: ?Soft, non-distended, nontender : ?No suprapubic tenderness. Extremities: ?No deformities.? No peripheral edema. Knees nontender with no effusion, good active ROM. 2+ pedal pulses bilaterally. Neuro: GCS 15.? Fluent speech, no dysarthria. Motor- 5/5 strength symmetric bilateral lower extremities Sensation- ?Intact to light touch and symmetric multiple dermatomes bilateral lower extremities Reflexes- 2/4 achilles & patellar, no clonus Gait/station: ?Normal stance.? No truncal ataxia. Steady gait with equal normal steps Course Vital Signs Vital signs: Vital Signs Temperature 36.4 C L 06/01/24 04:58 Pulse 89 06/01/24 04:58 Respiratory Rate 16 06/01/24 04:58 Blood Pressure 169/102 H 06/01/24 04:58 Pulse Oximetry 98 06/01/24 04:58 Temperature 36.4 C L 06/01/24 04:58 Temperature Source Temporal Artery Scan 06/01/24 04:58 Pulse 89 06/01/24 04:58 Respiratory Rate 16 06/01/24 05:07 Respiratory Effort Normal 06/01/24 05:07 Respiratory Depth Normal 06/01/24 05:07 Respiratory Pattern Normal 06/01/24 05:07 Blood Pressure 169/102 H 06/01/24 04:58 Blood Pressure Position Supine 06/01/24 04:58 Pulse Oximetry 98 06/01/24 04:58 Oxygen Delivery Method Room Air 06/01/24 04:58 Oxygen Flow Rate 0 06/01/24 04:58 Pain Level 10 06/01/24 04:58 Medical Decision Making 83yo M with hx HTN, HLD, anemia, hypothyroid BPH, IBS, GERD, chronic recurrent sinusitis, chronic knee pain, presenting for multiple chronic concerns unchanged in character or severity (post nasal drip, cough, epigastric pain, leg pain). He states he has seen his primary care doctor for all of these but that they haven't figured it out and he is hoping we can help with this today. Hypertensive on arrival, vital signs otherwise reassuring. Benign physical exam with no respiratory distress, no abdominal tenderness, normal LE neurologic exam, and good pedal pulses. EKG from triage NSR, appropriate intervals, no ST segment or T wave abnormalities to suggest occlusive OR. History and exam reassuring against acute coronary syndrome, surgical intraabdominal process, ischemic vascular disease, cord compression, septic arthritis, respiratory failure, acute CHF, aortic pathology. No indication for XR/CT/MRI imaging. I advised Mr. Cifuentes that it is unlikely I will be able to add to the diagnosis of his chronic complaints here in the ED today, but that we would endeavor to help with his symptoms and screen for potentially life threatening causes. Will give IV tylenol, toradol for pain as well as GI cocktail. Labs reviewed as below, CBC reassuring with no leukocytosis, anemia at baseline on [facility] record review. CMP with no actionable abnormalities, lipase normal (unlikely pancreatitis), BNP normal, HS troponin normal in the setting of pain that has been present for >4 hours. Heart score 3 (age, risk factors); low risk. Would not further workup ACS. On reassessment he reports pain has much improved. Advised to followup with PCP and orthopedics. Discharged home; discharge instructions and return precautions were reviewed with patient who verbalized understanding. All questions were answered and he is in full agreement with the plan. Lab Data Lab results reviewed: Yes I reviewed the patient's lab results. Labs: Laboratory Tests Range/Units 06/01/24 06/01/24 05:13 06:29 WBC (4.4-10.8) 10^3/uL 8.98 RBC (4.36-5.78) 10^6/uL 4.10 L Hgb (13.5-17.5) g/dL 12.6 L Hct (40.0-50.0) % 40.5 MCV (80-95) fL 99 H MCH (27.0-33.0) pg 30.7 MCHC (32.0-36.0) % 31.1 L RDW (11.8-14.1) % 13.4 Plt Count (130-400) 10^3/uL 253 MPV (8.0-11.0) fL 10.4 Immature Gran % % 0.4 Neutrophils % % 51.5 Lymphocytes % % 22.9 Monocytes % % 8.2 Eosinophils % % 15.9 Basophils % % 1.1 Nucleated RBC % (0.0-0.3) % 0.0 Absolute Neutrophils (1.2-6.7) 10^3/uL 4.61 Absolute Lymphocytes (1.2-3.4) 10^3/uL 2.06 Absolute Monocytes (0.1-0.8) 10^3/uL 0.74 Absolute Eosinophils (0.0-0.7) 10^3/uL 1.43 H Absolute Basophils (0.0-0.2) 10^3/uL 0.10 Sodium (136-145) mmol/L 142 Potassium (3.5-5.1) mmol/L 4.1 Chloride (98-107) mmol/L 105 Carbon Dioxide (21.0-32.0) mmol/L 31.8 Anion Gap (3-11) mmol/L 5.2 BUN (7-18) mg/dL 10 Creatinine (0.70-1.30) mg/dL 1.2 Est GFR (CKD-EPI 2020) (mL/min/1.73m2) 59.26 Glucose (74-106) mg/dL 85 Calcium (8.5-10.1) mg/dL 9.1 Total Bilirubin (0.2-1.0) mg/dL 0.59 AST (15-37) U/L 17 ALT (16-63) U/L 17 Alkaline Phosphatase (46-116) U/L 113 Troponin I (<or=76) ng/L 32 Cancelled NT-Pro-B Natriuret Pep (<300) pg/mL 223 Total Protein (6.4-8.2) g/dL 6.7 Albumin (3.4-5.0) g/dL 3.3 L Lipase (16-77) U/L 44 Quality:SDOH Health Related Social Needs: No Data to Display PFSH All Active Problems (Updated 06/01/24 @ 06:05 by Aleksandra Carreno MD) Chronic cough (Acute) Chronic epigastric pain (Acute) Chronic leg pain (Acute) Hypotension (Acute) Knee pain, bilateral (Acute) [facility] Hx ([facility]/[place]) - injections? Lung nodule seen on imaging study (Acute ~03/2024) Nasal obstruction (Acute) Deviated nasal septum (Acute) Chronic sinusitis (Chronic) Ex-smoker for more than 1 year (Acute) History of chronic cough (Acute) IBS (irritable bowel syndrome) (Chronic) Ondansetron PRN Folate deficiency (Chronic ~01/2021) Hypertension, essential (Chronic ~12/19/20) Dx'ed 12/19/2020-->Losartan; trialed off but BPs went up; Goal BP ~140/90 or lower Anemia (Chronic) Elevated MCV (Acute) Anxiety (Chronic) L-T Paxil (discont 2022) Asthma (Acute) Benign prostatic hyperplasia (Chronic) Doxazosin Chronic low back pain (Chronic 06/10/13) With R sided sciatica; RX Gabapentin Gastroesophageal reflux disease with esophagitis (Chronic 01/25/15) EGD w/ BX 03/14/09 and 07/31/10 w/ BX 2018--declines further EGD Hyperlipidemia, unspecified (Chronic 06/13/15) Hypothyroidism (Chronic) Medical History Pain in both lower extremities Flexeril + Diclofenac; declines work-up Cardiac murmur (~04/2022) Declines work-up; 2008 ECHO aortic regurg Diverticulosis of sigmoid colon (~2015) Seen on colonoscopy Eczema COVID-19 determined by clinical diagnostic criteria (~02/2021) Actinic keratosis of multiple sites of head and neck Right sided sciatica Environmental allergies Allergic rhinitis Disorder characterized by back pain chronic diffuse; w/ right sciatica Palpitations (06/13/15) Tobacco use 20 pack year history of smoking, quit 1979' Ventricular arrhythmia Neg echo, Neg ETT, Holter 220 PVC's unifocal/hr Oral lichen planus (~02/2018) Asthma Low back pain Surgical History Colonoscopy - IV Sedation (02/22/16) Dr mccann, normal, no repeat Family History Father Asthma Allergies Aunt Allergies Asthma Social History Smoking/Tobacco Use Status: Former Tobacco Use Quit Date: 07/15/89 Pack-years: 25 Smoking risk assessment performed?: Yes Alcohol Intake: former Drug use: Never Substance use type: former substance user Date of last use: when pt was in his late 30s-40s Details: H/O drug addiction back in his late 30s-40s. 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
[2024-06-01] MEDS: Ketorolac 15 MG/ML VIAL IVP (05:34)
[2024-06-01] MEDS: ACETAMINOPHEN 1,000 MG/100 ML BAG 400 MG IVPB (05:35)
[2024-06-01 05:36] LABS: Abs Immature Grans 0.04 10^3/uL (0.0-0.06); Absolute Eosinophil Count 1.43 10^3/uL (0.0-0.7); Absolute Lymphocyte Count 2.06 10^3/uL (1.2-3.4); Absolute Monocyte Count 0.74 10^3/uL (0.1-0.8); Absolute Neutrophil Count 4.61 10^3/uL (1.2-6.7); Basophils % 1.1 %; Eosinophils % 15.9 %; HCT 40.5 % (40.0-50.0); HGB 12.6 g/dL (13.5-17.5); Immature Grans % 0.4 %; Lymphocytes % 22.9 %; MCH 30.7 pg (27.0-33.0); MCHC 31.1 % (32.0-36.0); MCV 99 fL (80-95); MPV 10.4 fL (8.0-11.0); Monocytes % 8.2 %; Neutrophils % 51.5 %; Platelet Count 253 10^3/uL (130-400); RDW 13.4 % (11.8-14.1); RDW-SD 49.1 fL; WBC 8.98 10^3/uL (4.4-10.8)
[2024-06-01 05:59] LABS: ALT 17 U/L (16-63); AST 17 U/L (15-37); Albumin 3.3 g/dL (3.4-5.0); Alkaline Phosphatase 113 U/L (46-116); Anion Gap 5.2 mmol/L (3-11); BUN 10 mg/dL (7-18); Bilirubin, Total 0.59 mg/dL (0.2-1.0); CO2 31.8 mmol/L (21.0-32.0); CREATININE 1.2 mg/dL (0.70-1.30); Chloride 105 mmol/L (98-107); Estimated GFR 59.26 (mL/min/1.73m2); Glucose 85 mg/dL (74-106); Lipase 44 U/L (16-77); Potassium 4.1 mmol/L (3.5-5.1); Sodium 142 mmol/L (136-145); Total Protein 6.7 g/dL (6.4-8.2); Troponin I 32 ng/L (<or=76)
[2024-06-01 06:17] LABS: Calcium 9.1 mg/dL (8.5-10.1)
[2024-06-01 06:35] LABS: NT-proBNP 223 pg/mL (<300)
== END 2024-06-01 07:11 | disposition home or self-care (01) ==
LOC: ER 07:14
PROVIDERS: Emergency Provider Student in an Organized Health Care Education/Training Program; PCP Nurse Practitioner Adult Health
DX: M79.662 Pain in left lower leg (principal); M79.661 Pain in right lower leg; R10.13 Epigastric pain; G89.29 Other chronic pain; R05.3 Chronic cough; I10 Essential (primary) hypertension; E78.5 Hyperlipidemia, unspecified; D64.9 Anemia, unspecified; F41.9 Anxiety disorder, unspecified; E03.9 Hypothyroidism, unspecified; K21.9 Gastro-esophageal reflux disease without esophagitis; Z79.899 Other long term (current) drug therapy; Z87.891 Personal history of nicotine dependence
CPT/HCPCS: 36415; 80053; 83690; 93005; 96365; 96375; 99284; 83880; 84484; 85025; 93010; J0131; J1885

== ENCOUNTER 2024-06-04 10:23 | Outpatient (CLI) | payer MEDICARE, SELFPAY ==
--- NOTE | 2024-06-04 08:30 | DI.RAD_ITS ---
Exam(s) XR KNEE LT 4V AP,LAT,TATIANA,PAT EXAM: XR KNEE LT 4V AP,LAT,TATINAA,PAT CLINICAL HISTORY: bilateral knee pain. TECHNIQUE: 2D digital imaging was performed. Three views. COMPARISON: No exams were available for comparison FINDINGS: BONES: No acute fracture is present. No bony destructive lesion is seen. JOINTS: Severe narrowing of the lateral femoral tibial joint. Moderate periarticular spurring. Medi al femoral tibial joint space is maintained. Patellofemoral joint is maintained and shows mild peria rticular spurring. No joint effusion is seen. SOFT TISSUE: Vascular calcifications. IMPRESSION: Severe degenerative changes lateral femoral tibial joint. DATA REPOSITORY: RADIATION DOSE DELIVERED:
--- NOTE | 2024-06-04 08:30 | DI.RAD_ITS ---
Exam(s) XR KNEE RT 4V AP,LAT,TATIANA,PAT EXAM: XR KNEE RT 4V AP,LAT,TATIANA,PAT CLINICAL HISTORY: knee pain. TECHNIQUE: 2D digital imaging was performed. Three views. COMPARISON: CR XR KNEE LT 4V AP,LAT,TATIANA,PAT from 06/04/2024 FINDINGS: BONES: No acute fracture is present. No bony destructive lesion is seen. JOINTS: Severe narrowing of the lateral femoral tibial joint space with mild periarticular spurring. Medial femoral tibial and patellofemoral joint spaces are maintained. Mild spurring at the patellof emoral joint and medial femoral tibial joint. No joint effusion is seen. SOFT TISSUE: Vascular calcifications. IMPRESSION: Severe degenerative changes of the lateral femoral tibial joint. DATA REPOSITORY: RADIATION DOSE DELIVERED:
== END 2024-06-04 10:24 | disposition home or self-care (01) ==
LOC: DIORS 10:24
PROVIDERS: PCP Nurse Practitioner Adult Health; Referring Provider Nurse Practitioner Adult Health; Visit Provider Student in an Organized Health Care Education/Training Program
DX: M25.561 Pain in right knee (principal); M25.562 Pain in left knee; M17.11 Unilateral primary osteoarthritis, right knee; M17.12 Unilateral primary osteoarthritis, left knee
CPT/HCPCS: 20610; 99213; J1010; 73564

== ENCOUNTER → 2024-06-08 08:11 | Outpatient (BNVA) | payer MEDICARE, SELFPAY | PROVIDERS: PCP Nurse Practitioner Adult Health; Referring Provider Nurse Practitioner Adult Health; Visit Provider Physician Assistant Surgical | DX: J34.2 Deviated nasal septum (principal); J32.9 Chronic sinusitis, unspecified; R05.3 Chronic cough | CPT/HCPCS: 76604; 99214 ==

== ENCOUNTER 2024-06-12 01:34 | Outpatient (CLI) | payer MEDICARE, SELFPAY ==
[2024-06-12 08:20] LABS: HCT 39.8 % (40.0-50.0); HGB 12.5 g/dL (13.5-17.5); MCH 31.1 pg (27.0-33.0); MCHC 31.4 % (32.0-36.0); MCV 99 fL (80-95); MPV 9.8 fL (8.0-11.0); Platelet Count 297 10^3/uL (130-400); RBC 4.02 10^6/uL (4.36-5.78); RDW 13.6 % (11.8-14.1); RDW-SD 49.8 fL; WBC 8.87 10^3/uL (4.4-10.8)
[2024-06-12 08:55] LABS: ALT 18 U/L (16-63); AST 16 U/L (15-37); Albumin 3.3 g/dL (3.4-5.0); Alkaline Phosphatase 112 U/L (46-116); Anion Gap 5.7 mmol/L (3-11); BUN 18 mg/dL (7-18); Bilirubin, Total 0.52 mg/dL (0.2-1.0); CO2 30.3 mmol/L (21.0-32.0); CREATININE 1.4 mg/dL (0.70-1.30); Calcium 8.8 mg/dL (8.5-10.1); Chloride 105 mmol/L (98-107); Estimated GFR 49.25 (mL/min/1.73m2); Glucose 82 mg/dL (74-106); Potassium 4.2 mmol/L (3.5-5.1); Sodium 141 mmol/L (136-145); Total Protein 6.6 g/dL (6.4-8.2)
[2024-06-12 09:33] LABS: Vitamin B12 300 pg/mL (193-986)
[2024-06-12 10:08] LABS: Folate > 20.0 ng/mL (8.6-20.0)
[2024-06-16 22:27] LABS: Iron 76 ug/dL (65-175)
== END 2024-06-12 01:35 | disposition home or self-care (01) ==
LOC: LBO 01:34
PROVIDERS: PCP Student in an Organized Health Care Education/Training Program; Visit Provider Student in an Organized Health Care Education/Training Program
DX: N17.9 Acute kidney failure, unspecified (principal); E86.0 Dehydration; D64.9 Anemia, unspecified; I95.9 Hypotension, unspecified; F41.9 Anxiety disorder, unspecified; G89.29 Other chronic pain
CPT/HCPCS: 36415; 80053; 85027; 82607; 82746; 83540

== ENCOUNTER 2024-06-23 02:29 | Outpatient (CLI) | payer MEDICARE, SELFPAY ==
[2024-06-23] MEDS: Albuterol HFA 18 GM 200 PUFF INH IH (11:18)
[2024-06-23] MEDS: Methacholine 100 MG VIAL IH (11:18)
[2024-06-23] MEDS: Inhaler, Assist Device 1 EACH MC (11:18)
== END 2024-06-23 02:30 | disposition home or self-care (01) ==
LOC: RT 02:30
PROVIDERS: PCP Student in an Organized Health Care Education/Training Program; Visit Provider Physician Assistant Surgical
DX: R05.9 Cough, unspecified (principal)
CPT/HCPCS: 94060; 94070; J7674

== ENCOUNTER → 2024-07-13 09:26 | Outpatient (BNVA) | payer MEDICARE, SELFPAY | PROVIDERS: PCP Nurse Practitioner Family; Referring Provider Nurse Practitioner Adult Health; Visit Provider Physician Assistant Surgical | DX: J45.20 Mild intermittent asthma, uncomplicated (principal); J34.2 Deviated nasal septum; J32.9 Chronic sinusitis, unspecified | CPT/HCPCS: 99214 ==

== ENCOUNTER 2024-07-20 11:05 | Outpatient (CLI) | payer MEDICARE, SELFPAY ==
[2024-07-20 07:25] LABS: Lab Add On Test DONE
[2024-07-20 08:34] LABS: ALT 19 U/L (16-63); AST 20 U/L (15-37); Albumin 3.2 g/dL (3.4-5.0); Alkaline Phosphatase 93 U/L (46-116); Anion Gap 3.8 mmol/L (3-11); BUN 14 mg/dL (7-18); Bilirubin, Total 0.74 mg/dL (0.2-1.0); CO2 32.2 mmol/L (21.0-32.0); CREATININE 1.4 mg/dL (0.70-1.30); Chloride 104 mmol/L (98-107); Estimated GFR 48.95 (mL/min/1.73m2); Glucose 84 mg/dL (74-106); Potassium 3.9 mmol/L (3.5-5.1); Sodium 140 mmol/L (136-145); Total Protein 6.4 g/dL (6.4-8.2)
[2024-07-20 09:22] LABS: Iron 66 ug/dL (65-175); Total Iron Binding Capacity 297 ug/dL (250-450); Transferrin Sat 22 % (20-55)
== END 2024-07-20 11:06 | disposition home or self-care (01) ==
LOC: LBO 11:06
PROVIDERS: Student in an Organized Health Care Education/Training Program; PCP Nurse Practitioner Family; Visit Provider Nurse Practitioner Adult Health
DX: Z86.2 Personal history of diseases of the blood and blood-forming organs and certain disorders involving the immune mechanism (principal); D64.9 Anemia, unspecified; R79.89 Other specified abnormal findings of blood chemistry; S37.009A Unspecified injury of unspecified kidney, initial encounter
CPT/HCPCS: 80053; 83540; 83550

== ENCOUNTER 2024-07-28 13:49 | Outpatient (CLI) | payer MEDICARE, SELFPAY ==
--- NOTE | 2024-07-28 06:00 | DI.RAD_ITS ---
Exam(s) XR PAIN CLINIC LUMBAR SP 2V EXAM: XR PAIN CLINIC LUMBAR SP 2V CLINICAL HISTORY: Dx: Lumbar Radiculopathy TECHNIQUE: 2D and realtime digital imaging was performed. CONTRAST MATERIAL: Refer to procedure report. COMPARISON: No exams were available for comparison FINDINGS: Fluoroscopy was provided for Dr. Newell during the performance of a transforaminal epidural steroid injection. Please refer to the procedure report for complete details. Ka,r=5.47 mGy IMPRESSION: RADIATION DOSE DELIVERED: 0.0 0.0 0
--- NOTE | 2024-07-28 13:55 | PDOC.PAIN_ITS ---
Date of service: 07/28/24 Time of Service: 14:45 Pain Managment Procedure Note Procedure Note Procedure Note: Lumbar Interlaminar Epidural Steroid Injection ? Location: L5-S1 ? Pre-procedure Diagnosis: M54.16- Radiculopathy, LUMBAR region ? Post-procedure Diagnosis:? The same as above ? Sedation:? ? None ? Medication: Depo-Medrol 80 mg, Omnipaque 1 mL ? Estimated blood loss:? less than 2 cc ? Surgeon:? Ky Newell MD COMMENT: Patient had bilateral foraminal stenosis at several levels worse at the L5-S1. Pain radiates to both legs and regionally and is going to do right-sided transforaminal L5 but he is complaining of pain down his left leg as well so we will proceed with interlaminar at L5-S1. ? Procedure Detail:? The procedure and potential risks were explained to the patient and informed written consent was obtained. The patient was escorted to the procedure room and placed in the prone position. Pillows were utilized for proper positioning and comfort. Time out was performed in the procedure room with nursing staff confirming the patient's identity, procedure to be performed, allergies, and any blood thinning or anti-platelet medications.? The patient's neck and upper back was prepped with ChloraPrep and draped in a sterile fashion. Sterile technique was maintained throughout the procedure.? Sterile gloves were used, a face mask was worn, and new single dose vials of all medications were used with the top being swabbed with alcohol and given time to dry prior to withdrawal of medication. Lidocane 1% was used to anesthetize the skin.Using a 25-gauge 1.5 inch needle, 1% lidocaine was instilled into the superficial soft tissue overlying the targeted area to provide local anesthesia. With fluoroscopic guidance, a 18 -gauge Tuohy needle was advanced toward the int erlaminar space of L5-S1. The needle was then advance through the ligamentum flavum and into the posterior epidural space using the loss of resistance technique. Correct needle placement was confirmed through review of the AP and contralateral oblique fluoroscopic views. Following negative aspiration, one cc of Omnipaque 240 contrast was injected which confirmed good flow throughout the epidural space and no evidence of vascular flow or flow into adjacent compartments. Next, following negative aspiration, 1 cc's of normal saline and 80mg of Depo-Medrol was injected. The needle was gently removed. The patient tolerated the procedure well and was transported to the recovery area for observation and discharge instructions. Permanent images saved and recorded. PAIN PRE-PROCEDURE 11/21 POST-PROCEDURE 08/24 Plan:? Follow up prn. COMMENT: Repeat as needed. Consider medial branch blocks and radiofrequency ablation for his axial pain
[2024-07-28 14:01] VITALS: BP 145/92; PULSE 63; RESP 20; TEMP 36.5; O2SAT 99
[2024-07-28 14:28] VITALS: O2SAT 94
[2024-07-28 14:30] VITALS: O2SAT 96
[2024-07-28] MEDS: methylPREDNISolone ACETATE 40 MG/ML VIAL IJ (14:46)
[2024-07-28] MEDS: Nerve Block Tray 1 EACH MC (14:46)
[2024-07-28] MEDS: Omnipaque 240 MG/ML 50 ML BTL IJ (14:46)
== END 2024-07-28 13:50 | disposition home or self-care (01) ==
LOC: PC 13:50
PROVIDERS: PCP Nurse Practitioner Family; Visit Provider Anesthesiology Pain Medicine
DX: M54.50 Low back pain, unspecified (principal); M54.16 Radiculopathy, lumbar region
CPT/HCPCS: 00123; 62323; 72100; J0665; J1010; Q9967

== ENCOUNTER 2024-08-18 07:55 | Outpatient (CLI) | payer MEDICARE, SELFPAY ==
--- NOTE | 2024-08-18 06:00 | DI.RAD_ITS ---
Exam(s) XR PAIN CLINIC LUMBAR SP 2V EXAM: XR PAIN CLINIC LUMBAR SP 2V CLINICAL HISTORY: Dx: Lumbar Spondylosis. TECHNIQUE: Fluoroscopy was provided for the referring physician for guidance with performing pain cl inic injection procedure. COMPARISON: No exams were available for comparison FINDINGS: Please see procedure note for details. Fluoro time: 26.3 seconds RADIATION DOSE DELIVERED: lara Kirk=7.22 mGy
[2024-08-18 08:19] VITALS: BP 122/84; PULSE 82; RESP 18; TEMP 36.5; O2SAT 98
--- NOTE | 2024-08-18 08:50 | PDOC.PAIN ---
Date of service: 08/18/24 Time of Service: 09:00 Pain Managment Procedure Note Procedure Note Procedure Note: Lumbar Medial Branch Block ? Location: Bilateral Medial Branches ? Levels: L3,4,5? (L4-5, L5-S1 FACET) ? 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 Post-procedure Diagnosis:? The same as above ? Sedation: NONE? Estimated blood loss:? less than 2 cc ? Surgeon:? Ky Newell MD COMMENT: PRE PROCEDURE PAIN SCORE: 5/10 ? Procedure Detail:? The procedure and potential risks were explained to the patient and informed written consent was obtained. The patient was escorted to the procedure room and placed in the prone position. Pillows were utilized for proper positioning and comfort.? Time out was performed in procedure room with nursing staff confirming the patient's identity, procedure to be performed, allergies, and any blood thinning or anti-platelet medications. The patient's lower back was prepped with chlorhexidine and draped in a sterile fashion. Sterile technique was maintained throughout the procedure.? Sterile gloves were used, a face mask was worn, and new single dose vials of all medications were used with the top being swabbed with alcohol and given time to dry prior to withdrawal of medication.? A left AND right-sided oblique fluoroscopic view was obtained, with visualization of the: ?RIGHT and LEFT L3,4 and DORSAL RAMUS L5 AT SACRAL ALA ? junction of the transverse process and superior articular process. Lidocaine 1% was used to anesthetize the skin. A 22-gauge Quincke needle was advanced along the superior margin of the transverse process and lateral to the articular process.? It was directed inferiorly and medially so that the tip struck the junction of the base of the transverse process and the superior articular process. The needle was then walked over the superior aspect of the transverse process and advanced slightly along the course of the L3,4,5 medial branch nerves. Proper placement was verified in A/P, oblique and lateral views under fluoroscopy. At this location, following negative aspiration, 0.5cc 0.5% bupivacaine was injected.? The patient tolerated the procedure well and was transported to the recovery area for observation and discharge instructions. Permanent images saved and recorded. Follow-up:? The patient will return in 2 weeks for confirmatory LMBBs if they? meet the criteria from today's procedure lasting for at least 2 hours.? COMMENT:Pain went from 5/10 to2/10. Before the patient left patient had greater than []% pain relief. Patient also has neck pain so would consider medial branch there as well.
[2024-08-18 08:53] VITALS: PULSE 72; O2SAT 97
[2024-08-18 09:00] VITALS: PULSE 72; O2SAT 97
[2024-08-18] MEDS: Nerve Block Tray 1 EACH MC (09:14)
[2024-08-18] MEDS: Bupivacaine 0.5% Pres-Free 10 ML VIAL IJ (09:14)
== END 2024-08-18 07:56 | disposition home or self-care (01) ==
LOC: PC 07:55
PROVIDERS: PCP Nurse Practitioner Family; Visit Provider Anesthesiology Pain Medicine
DX: M54.50 Low back pain, unspecified (principal); M47.817 Spondylosis without myelopathy or radiculopathy, lumbosacral region; M47.816 Spondylosis without myelopathy or radiculopathy, lumbar region
CPT/HCPCS: 123; 64493; 64494; 72100; 00123; J0665

== ENCOUNTER → 2024-08-24 08:39 | Outpatient (BNVA) | payer MEDICARE, SELFPAY | PROVIDERS: PCP Nurse Practitioner Family; Referring Provider Nurse Practitioner Family; Visit Provider Student in an Organized Health Care Education/Training Program | DX: M17.11 Unilateral primary osteoarthritis, right knee (principal); M17.12 Unilateral primary osteoarthritis, left knee | CPT/HCPCS: 99213 ==

== ENCOUNTER 2024-09-02 10:16 | Outpatient (CLI) | payer MEDICARE, SELFPAY ==
--- NOTE | 2024-09-02 06:00 | DI.RAD_ITS ---
Exam(s) XR PAIN CLINIC LUMBAR SP 2V EXAM: XR PAIN CLINIC LUMBAR SP 2V CLINICAL HISTORY: Dx: Lumbar Spondylosis TECHNIQUE: 2D and realtime digital imaging was performed. CONTRAST MATERIAL: Refer to procedure report. COMPARISON: No exams were available for comparison FINDINGS: Fluoroscopy was provided for Dr. Newell during the performance of a lumbar medial branch block. Pl ease refer to the procedure report for complete details. Ka,r=6.2 mGy IMPRESSION: RADIATION DOSE DELIVERED: 0.0 0.0 0
[2024-09-02 10:34] VITALS: BP 138/81; PULSE 89; RESP 18; TEMP 36.5; O2SAT 98
[2024-09-02 11:21] VITALS: PULSE 79; O2SAT 97
[2024-09-02 11:30] VITALS: PULSE 74; O2SAT 97
[2024-09-02] MEDS: Nerve Block Tray 1 EACH MC (11:45)
[2024-09-02] MEDS: Lidocaine 2% Pres-Free 5 ML VIAL IJ (11:46)
--- NOTE | 2024-09-02 11:57 | PDOC.PAIN ---
Date of service: 09/02/24 Time of Service: 11:45 Pain Managment Procedure Note Procedure Note Procedure Note: Location: Bilateral Medial Branches ? Levels: L3,4,5? (L4-5, L5-S1 FACET) ? 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 Post-procedure Diagnosis:? The same as above ? Sedation: NONE? Estimated blood loss:? less than 2 cc ? Surgeon:? Ky Newell MD COMMENT: Patient had? GREATER THAN 80 % relief after the first medial branch block for greater than the duration of the local anesthetic.? PRE PROCEDURE PAIN SCORE: 8/10 ? Procedure Detail:? The procedure and potential risks were explained to the patient and informed written consent was obtained. The patient was escorted to the procedure room and placed in the prone position. Pillows were utilized for proper positioning and comfort.? Time out was performed in procedure room with nursing staff confirming the patient's identity, procedure to be performed, allergies, and any blood thinning or anti-platelet medications. The patient's lower back was prepped with chlorhexidine and draped in a sterile fashion. Sterile technique was maintained throughout the procedure.? Sterile gloves were used, a face mask was worn, and new single dose vials of all medications were used with the top being swabbed with alcohol and given time to dry prior to withdrawal of medication.? A left and right-sided oblique fluoroscopic view was obtained, with visualization of the: ?RIGHT and LEFT L3,4 and DORSAL RAMUS L5 AT SACRAL ALA ? junction of the transverse process and superior articular process. Lidocaine 1% was used to anesthetize the skin. A 22-gauge Quincke needle was advanced along the superior margin of the transverse process and lateral to the articular process.? It was directed inferiorly and medially so that the tip struck the junction of the base of the transverse process and the superior articular process. The needle was then walked over the superior aspect of the transverse process and advanced slightly along the course of the L3,4,5 medial branch nerves. Proper placement was verified in A/P, oblique and lateral views under fluoroscopy. At this location, following negative aspiration, 0.5cc 2% lidocaine was injected.? The patient tolerated the procedure well and was transported to the recovery area for observation and discharge instructions. Permanent images saved and recorded. Follow-up:?? Will plan to proceed with lumbar medial branch RFA if the patient gets good relief from today's procedure lasting for at least 2 hours. COMMENT:Pain went from 8/10 to 0/10. Before the patient left patient had 100% pain relief.
== END 2024-09-02 10:17 | disposition home or self-care (01) ==
LOC: PC 10:17
PROVIDERS: PCP Nurse Practitioner Family; Visit Provider Anesthesiology Pain Medicine
DX: M54.50 Low back pain, unspecified (principal); M47.817 Spondylosis without myelopathy or radiculopathy, lumbosacral region; M47.816 Spondylosis without myelopathy or radiculopathy, lumbar region
CPT/HCPCS: 00123; 64493; 64494; 72100

== ENCOUNTER 2024-09-28 07:11 | Outpatient (CLI) | payer MEDICARE, SELFPAY ==
[2024-09-28] VITALS (15 sets, daily range): BP systolic 134–173; BP diastolic 94–115; PULSE 60–74; RESP 12–20; TEMP 36.5; O2SAT 93–98
--- NOTE | 2024-09-28 06:00 | DI.RAD_ITS ---
Exam(s) XR PAIN CLINIC LUMBAR SP 2V EXAM: XR PAIN CLINIC LUMBAR SP 2V CLINICAL HISTORY: Dx: Lumbar Spondylosis. TECHNIQUE: Fluoroscopy was provided for the referring physician for guidance with performing pain cl inic injection procedure. COMPARISON: No exams were available for comparison FINDINGS: Please see procedure note for details. Fluoro time: 62 seconds RADIATION DOSE DELIVERED: lara Kirk=18.4 mGy
--- NOTE | 2024-09-28 07:49 | PDOC.PAIN2 ---
History of Present Illness History of Present Illness History of Present Illness: Pre-procedure History and Physical Proposed procedure: RFA bilat L3,4,5 Chief complaint: LBP HPI: 84-year-old male with chronic back . Neurologically he is intact. He does have some mechanical low back pain as well. He had good temporary relief from medial branch blocks and plan for today radiofrequency ablation lumbar facet nerves as well. Overall he is in remarkably good health for his age. I told him we could address his cervical spine issues at another time and to see how he does with his low back pain. PMH: no changes Social history: Non-contributory Medications: No changes ROS: Non-contributory ASA score 1-4: 2 Mallampati Score 1-4: Class 1 General Appearance: Normal? Head/neck: Normal? Nose/throat: Normal? Heart: Regular rate and rhythm Lungs:? Clear to auscultation Sensory: Normal? Motor:? Normal? Bowel/bladder changes: Normal? Mental status: Alert and appropriate Skin at the injection site: No noted abnormalities Mr. Cifuentes is here today for lumbar radiofrequency ablation with moderate sedation.? Pre-procedure assessment was made and no contraindications to proceed were identified.? Patient's cardiovascular status and respiratory status were monitored and stable throughout the course of the procedure.? Patient was able to respond purposefully to verbal commands.? There were no interventions required to maintain a patent airway and spontaneous ventilation was adequate.? At the termination of the procedure patient's vital signs were stable.? The patient was alert and oriented x 3.? The intravenous line was discontinued and patient discharged home with designated laborer driver along with post-procedure instructions. Medications used: ? Midazolam 1 milligrams ? Fentanyl?? 50 micrograms Review of Systems Medications/Allergies Allergies Allergy/AdvReac Type Severity Reaction Status Date / Time azithromycin AdvReac Severe Nausea Verified 09/28/24 07:17 diclofenac AdvReac Intermediate gi upset Verified 09/28/24 07:17 alcohol AdvReac Unknown hx of etoh Verified 09/28/24 07:17 abuse Medications: Current Medications Bupivacaine HCl (Bupivacaine 0.25% Pres-Free 30 Ml Vial) 0 ml IJ DIRECTED VIRAJ Stop: 09/28/24 23:59 Bupivacaine HCl (Bupivacaine 0.5% Pres-Free 10 Ml Vial) 0 ml IJ DIRECTED VIRAJ Stop: 09/28/24 23:59 Bupivacaine HCl (Bupivacaine 0.5% Pres-Free 30 Ml Vial) 0 ml IJ DIRECTED VIRAJ Stop: 09/28/24 23:59 Dexamethasone Sodium Phosphate (Dexamethasone Sod. Phos./Pres-Free 10 Mg/Ml Vial) 0 mg IJ DIRECTED VIRAJ Stop: 09/28/24 23:59 Fentanyl (Fentanyl 100 Mcg/2 Ml Vial) 0 mcg IVP DIRECTED VIRAJ Stop: 09/28/24 23:59 Ringer's Solution () 500 mls @ 80 mls/hr IV INFUSION VIRAJ Stop: 09/28/24 23:59 Iohexol (Omnipaque 240 Mg/Ml 50 Ml Btl) 0 ml IJ DIRECTED VIRAJ Stop: 09/28/24 23:59 Lidocaine HCl (Lidocaine 1% Pres-Free 5 Ml Vial) 0 ml IJ DIRECTED VIRAJ Stop: 09/28/24 23:59 Lidocaine HCl (Lidocaine 1% Pres-Free 30 Ml Vial) 0 ml IJ DIRECTED VIRAJ Stop: 09/28/24 23:59 Lidocaine HCl (Lidocaine 2% Pres-Free 2 Ml Vial) 0 ml IJ DIRECTED VIRAJ Stop: 09/28/24 23:59 Lidocaine HCl (Lidocaine 2% Pres-Free 5 Ml Vial) 0 ml IJ DIRECTED VIRAJ Stop: 09/28/24 23:59 Lidocaine HCl (Lidocaine 2% Multi-Dose 20 Ml Vial) 20 ml IJ DIRECTED VIRAJ Stop: 09/28/24 23:59 Methylprednisolone Acetate (Methylprednisolone Acetate 80 Mg/Ml Vial) 0 mg IJ DIRECTED VIRAJ Stop: 09/28/24 23:59 Methylprednisolone Acetate (Methylprednisolone Acetate 40 Mg/Ml Vial) 0 mg IJ DIRECTED VIRAJ Stop: 09/28/24 23:59 Midazolam HCl (Midazolam 2 Mg/2 Ml Vial) 0 mg IVP DIRECTED VIRAJ Stop: 09/28/24 23:59 Miscellaneous (Nerve Block Tray) 1 each MC DIRECTED VIRAJ Stop: 09/28/24 23:59 Sodium Chloride (Normal Saline 20 Ml Vial) 10 ml IJ DIRECTED VIRAJ Stop: 09/28/24 23:59 Sodium Chloride (Normal Saline Flush 10 Ml Syr) 0 ml IVP PRN PRN Stop: 09/28/24 23:59 Objective Exam Vitals and I&O: Vital Signs Temperature 36.5 C 09/28/24 07:44 Pulse 67 09/28/24 07:44 Respiratory Rate 18 09/28/24 07:44 Blood Pressure 151/111 H 09/28/24 07:44 Pulse Oximetry 98 09/28/24 07:44 Oxygen Delivery Method Room Air 09/28/24 07:44 Oxygen Flow Rate 0 09/28/24 07:44 Intake & Output 09/27/24 09/27/24 09/28/24 11:59 23:59 11:59 Weight 77.111 kg Ambulatory Orders ?Medication ?Instructions ?Recorded ondansetron HCl 4 mg tablet See Rx Instructions .Route 03/30/24 .COMPLEX #60 tabs Atrovent HFA 17 mcg/actuation 2 puff inhalation QID cough 2 04/06/24 aerosol inhaler (ipratropium months #12.9 grams bromide) atorvastatin 40 mg tablet 40 mg PO DAILY #90 tab-caps 04/22/24 folic acid 1 mg tablet 1 mg PO DAILY #90 tabs 04/22/24 levothyroxine 75 mcg tablet 75 mcg PO DAILY #90 tab-caps 04/22/24 sucralfate 1 gram tablet 1 g PO QID #360 tabs 04/22/24 lorazepam 0.5 mg tablet 0.5 mg PO ONCE PRN 06/01/24 losartan 50 mg tablet 50 mg PO DAILY 06/01/24 gabapentin 100 mg capsule 200 mg (2 x 100 mg) PO TID taper 06/02/24 off - est over 4 weeks #60 caps fluticasone propionate 230 2 puff inhalation BID #12 grams 06/29/24 mcg-salmeterol 21 mcg/actuation HFA inhaler (Advair HFA) albuterol 90 mcg/actuation aerosol 90 mcg inhalation DAILY 07/13/24 inhaler gabapentin 600 mg tablet 300 mg PO QHS 07/28/24 mecobalamin (vitamin B12) 500 mcg 500 mcg PO DAILY #90 tabs 07/29/24 chewable tablet azithromycin 250 mg tablet See Rx Instructions PO .COMPLEX #6 08/25/24 tabs ipratropium bromide 21 mcg (0.03 2 spray intranasal TID sinus 09/16/24 %) nasal spray congestion #30 mL amoxicillin 875 mg-potassium 1 tab PO BID #14 tabs 09/17/24 clavulanate 125 mg tablet prednisone 10 mg tablet 10 mg PO DAILY #34 tabs 09/17/24
--- NOTE | 2024-09-28 07:59 | PDOC.PAIN ---
Date of service: 09/28/24 Time of Service: 09:05 Pain Managment Procedure Note Procedure Note Procedure Note: Lumbar Medial Branch COOLED Radiofrequency Ablation COMMENT: [Patient had greater than 80 % relief after 2 medial branch blocks .] ? Location: Bilateral L3, and L4 medial Branches and dorsal ramus of L5 (L4-5, and L5-S1 joints) ? Pre-procedure Diagnosis: M47.817 Spondylosis without myelopathy or radiculopathy, lumbosacral region ? Post-procedure Diagnosis:? The same as above ? Sedation:?Intravenous line started 1mg of intravenous midazolam and fentanyl 50 mcg?were administered. An independent trained observer monitored the patient for the duration of the procedure.? Estimated blood loss:? less than 2 cc ? Surgeon: Ky Newell MD ? Procedure Detail:? The procedure and potential risks were explained to the patient and informed written consent was obtained. The patient was escorted to the procedure room and placed in the prone position. Pillows were utilized for proper positioning and comfort. Time out was performed in the procedure room with nursing staff confirming the patient's identity, procedure to be performed, allergies, and any blood thinning or anti-platelet medications. The patient's lower back was prepped with ChloraPrep and draped in a sterile fashion.? Sterile technique was maintained throughout the procedure.? Sterile gloves were used, a face mask was worn, and new single dose vials of all medications were used with the top being swabbed with alcohol and given time to dry prior to withdrawal of medication. A left AND right-sided oblique fluoroscopic view was obtained, with visualization of the L4 junction of the transverse process and superior articular process. 2% lidocaine was used to anesthetize the skin. With fluoroscopic guidance, an 17 gauge curved tip 4mm active tip RF cannula was advanced to the superior margin of the transverse process and lateral to the superior articular process.? It was directed inferiorly and medially so that the tip struck the junction of the base of the transverse process and the superior articular process. The needle was then slightly advanced along the course of the L3 medial branch nerve. Proper placement was verified with oblique, AP, and lateral fluoroscopic views. Sensory tested with good response less than 1V. Motor testing was performed and was negative at 2V except for expected multifidus activation. A similar procedure was also performed at the ipsilateral L4 medial branch nerves and the dorsal ramus of L5 with negative motor testing at 2V except for expected multifidus activation. One cc of 2% lidocaine was injected through each needle tip to anesthetize the medial branch nerves.? After waiting for the local anesthetic to take effect, each nerve was then ablated at 60 degrees Celsius for 150 seconds.? The patient was monitored for any severe pain or radicular pain during the ablation and reported none. The patient tolerated the procedure well, and was discharged in stable condition.? Permanent images were saved and recorded. PAIN: PRE PROCEDURE 01/21 POST PROCEDURE 0 Plan: F/U PRN COMMENT: Repeat prn if 6 months relief of 50%. Patient is complaining of neck pain radiating to both upper extremities. Will order MRI of cervical spine and follow-up with him in the office after. Coding Conscious Sedation used for procedure: Yes CPT Codes: Moderate sedation; First 15 min - 81593 (44202) Moderate sedation; add. 15 increments - 81193 (65065) Single Facet Joint, Lumbar/Sacral cool - 70666A ([id number]~G) bilateral Single Facet Joint, Lumbar/Sacral cool each add'l - 34072P (53200T67~G) LT - LEFT SIDE, RT - RIGHT SIDE Additional Codes: Date of Service (70642) Date of service: 09/28/24
[2024-09-28] MEDS: Midazolam 2 MG/2 ML VIAL IVP (08:05)
[2024-09-28] MEDS: fentaNYL 100 MCG/2 ML VIAL IVP ×2 (08:05→08:10)
[2024-09-28] MEDS: Lactated Ringers 500 ML 80 ML IV (08:26)
[2024-09-28] MEDS: Lidocaine 2% Multi-Dose 20 ML VIAL IJ (08:44)
[2024-09-28] MEDS: Nerve Block Tray 1 EACH MC (08:44)
== END 2024-09-28 07:12 | disposition home or self-care (01) ==
LOC: PC 07:11
PROVIDERS: PCP Nurse Practitioner Family; Visit Provider Anesthesiology Pain Medicine
DX: M54.50 Low back pain, unspecified (principal); M47.817 Spondylosis without myelopathy or radiculopathy, lumbosacral region
CPT/HCPCS: 64635; 64636; 72100; J2003; J2250; J3010

== ENCOUNTER 2024-10-21 01:59 | Outpatient (CLI) | payer MEDICARE, SELFPAY ==
[2024-10-21 07:34] LABS: HCT 38.7 % (40.0-50.0); HGB 12.4 g/dL (13.5-17.5); MCH 32.1 pg (27.0-33.0); MCV 100 fL (80-95); Platelet Count 240 10^3/uL (130-400); RBC 3.86 10^6/uL (4.36-5.78); RDW 13.5 % (11.8-14.1); RDW-SD 49.3 fL; WBC 6.33 10^3/uL (4.4-10.8)
[2024-10-21 08:23] LABS: Iron 69 ug/dL (65-175); Total Iron Binding Capacity 282 ug/dL (250-450); Transferrin Sat 24 % (20-55)
[2024-10-21 08:36] LABS: Anion Gap 6.9 mmol/L (3-11); BUN 17 mg/dL (7-18); CO2 31.1 mmol/L (21.0-32.0); CREATININE 1.3 mg/dL (0.70-1.30); Calcium 8.9 mg/dL (8.5-10.1); Chloride 104 mmol/L (98-107); Folate > 20.0 ng/mL (8.6-20.0); Glucose 83 mg/dL (74-106); Potassium 4.1 mmol/L (3.5-5.1); Sodium 142 mmol/L (136-145)
[2024-10-21 08:49] LABS: Calculated LDL 153 mg/dL (<100); Cholesterol 215 mg/dL (<200); Ferritin 24 ng/mL (26-388); HDL Cholesterol 50 mg/dL (>or=40); TSH (W/Ref FT4) 6.11 uIU/mL (0.36-3.74); Triglyceride 62 mg/dL (<150); Vitamin B12 214 pg/mL (193-986)
== END 2024-10-21 02:00 | disposition home or self-care (01) ==
LOC: LBO 01:59
PROVIDERS: Nurse Practitioner Adult Health; PCP Nurse Practitioner Family; Visit Provider Student in an Organized Health Care Education/Training Program
DX: E03.9 Hypothyroidism, unspecified; I10 Essential (primary) hypertension; E78.2 Mixed hyperlipidemia; E53.8 Deficiency of other specified B group vitamins
CPT/HCPCS: 80048; 80061; 85027; 82607; 82728; 82746; 83540; 83550; 84439; 84443

== ENCOUNTER 2024-10-27 01:14 | Outpatient (CLI) | payer MEDICARE, SELFPAY ==
--- NOTE | 2024-10-27 06:45 | DI.MRI_ITS ---
Exam(s) MR CERVICAL SPINE WO EXAM: MR CERVICAL SPINE WO CLINICAL HISTORY: pain neck and arm with numbness hands,cervical radiculitis,m54.12 TECHNIQUE: Multiplanar multisequence MRI of the cervical spine was performed without intravenous con trast. COMPARISON: No exams were available for comparison FINDINGS: BONES: Vertebral body heights are maintained. Alignment is normal. Bone marrow signal intensity is wi thin normal limits. CERVICAL CORD: Craniovertebral junction is unremarkable. The cervical cord is normal size and signal intensity. SOFT TISSUES: Unremarkable. C2-3: Mild loss of disc height and circumferentially projecting osteophytes. No focal disc herniatio n. No evidence of neural foraminal narrowing. No significant central canal stenosis. C3-4: severe loss of disc height and circumferentially projecting osteophytes. Mild right and modera te to severe left neural foraminal narrowing. No significant central canal stenosis. C4-5: Marked loss of disc height and circumferentially projecting osteophytes. Severe left and mild right neural foraminal narrowing. . No significant central canal stenosis. C5-6: Marked loss of disc height. Circumferentially projecting osteophytes. Mild bilateral neural f oraminal narrowing. No evidence of neural foraminal narrowing. No significant central canal stenosis . C6-7: No moderate loss of disc height. Circumferentially projecting osteophytes. Moderate right and mild left neural foraminal narrowing. No evidence of neural foraminal narrowing. No significant tsering tral canal stenosis. C7-T1: No disc herniation or bulge is identified. No evidence of neural foraminal narrowing. No signi ficant central canal stenosis. IMPRESSION: Multilevel degenerative disc changes causing bilateral neural foraminal narrowing as mentioned above. No significant central canal stenosis. No focal disc herniation. DATA REPOSITORY:
== END 2024-10-27 01:34 ==
LOC: DI 01:14
PROVIDERS: PCP Nurse Practitioner Family; Visit Provider Anesthesiology Pain Medicine
DX: M54.12 Radiculopathy, cervical region (principal)
CPT/HCPCS: 72141

== ENCOUNTER 2024-11-03 14:05 | Outpatient (CLI) | payer MEDICARE, SELFPAY ==
--- NOTE | 2024-11-03 06:00 | DI.RAD_ITS ---
Exam(s) XR PAIN CLINIC SACRIOILIAC 2V EXAM: XR PAIN CLINIC SACRIOILIAC 2V CLINICAL HISTORY: DX: Sacroiliac Dysfunction TECHNIQUE: 2D and realtime digital imaging was performed. CONTRAST MATERIAL: Refer to procedure report. COMPARISON: No exams were available for comparison FINDINGS: Fluoroscopy was provided for Dr. Driscoll during the performance of a bilateral sacroiliac joint in [facility]. Please refer to the procedure report for complete details. Ka,r=11.0 mGy IMPRESSION: RADIATION DOSE DELIVERED: 0.0 0.0 0
[2024-11-03 14:14] VITALS: BP 136/99; PULSE 80; RESP 20; TEMP 36.7; O2SAT 97
--- NOTE | 2024-11-03 14:21 | PDOC.PAIN ---
Date of service: 11/03/24 Time of Service: 14:52 Pain Managment Procedure Note Procedure Note Procedure Note: ?Sacroiliac Joint Steroid Injection ? Location: Bilateral SI Joints? Pre-procedure Diagnosis: Sacroiliitis, not elsewhere classified - M46.1 ? Post-procedure Diagnosis:? The same as above ? Sedation:? NONE ? Medication: Depo-Medrol 40 mg, bupivacaine 0.5% 1 mL, Omnipaque 0.25 mL per joint ? Estimated blood loss:? less than 2 cc ? Surgeon:? Ky Newell MD ? COMMENT: THIS WILL BE BOTH DIAGNOSTIC AND THERAPEUTIC ? Procedure Detail:? The procedure and potential risks were explained to the patient and informed written consent was obtained. The patient was escorted to the procedure room and placed in the prone position. Pillows were utilized for proper positioning and comfort. Time out was performed in the procedure room with nursing staff confirming the patient's identity, procedure to be performed, allergies, and any blood thinning or anti-platelet medications. The patient's lumbosacral area was prepped with ChloraPrep and draped in a sterile fashion. Sterile technique was maintained throughout the procedure.? Sterile gloves were used, a face mask was worn, and new single dose vials of all medications were used with the top being swabbed with alcohol and given time to dry prior to withdrawal of medication. Lidocaine 1% was used to anesthetize the skin. With fluoroscopic guidance, a 22-gauge 3.5 spinal needle was advanced into the posteroinferior aspect of the Bilateral SI joint. Confirmation of intra-articular position of the needle tip was obtained with injection of 0.25cc of Omnipaque 240 contrast which showed appropriate spread within the joint.? Following negative aspiration, 40mg of methylprednisolone mixed with 1 mL of bupivacaine 0.5% was injected.? The needle was gently removed. ?The patient tolerated the procedure well and was transported to the recovery area for observation and discharge instructions.? Permanent images saved and recorded. Plan:? Follow up prn. PAIN PRE PROCEDURE 03/24 POST PROCEDURE 07/24 COMMENT: [80] % BETTER AFTER INJECTION Coding Conscious Sedation used for procedure: No CPT Codes: SI Joint Inj; incl Fluoro * BILATERAL* - [id number] ([id number]) Additional Codes: Date of Service (68923) Date of service: 11/03/24
[2024-11-03 14:27] VITALS: PULSE 71; O2SAT 95
[2024-11-03 14:30] VITALS: PULSE 66; O2SAT 96
[2024-11-03 14:40] VITALS: PULSE 77; O2SAT 96
[2024-11-03] MEDS: Bupivacaine 0.5% Pres-Free 10 ML VIAL IJ (14:48)
[2024-11-03] MEDS: Nerve Block Tray 1 EACH MC (14:48)
[2024-11-03] MEDS: Omnipaque 240 MG/ML 50 ML BTL IJ (14:48)
[2024-11-03] MEDS: methylPREDNISolone ACETATE 80 MG/ML VIAL IJ (14:49)
== END 2024-11-03 14:06 | disposition home or self-care (01) ==
LOC: PC 14:05
PROVIDERS: PCP Nurse Practitioner Family; Visit Provider Anesthesiology Pain Medicine
DX: M46.1 Sacroiliitis, not elsewhere classified (principal); M54.50 Low back pain, unspecified
CPT/HCPCS: 27096; 72200; J0665; J1010; Q9967

== ENCOUNTER 2024-11-04 03:27 | Outpatient (CLI) | payer MEDICARE, SELFPAY ==
[2024-11-04 13:08] LABS: HCT 38.4 % (40.0-50.0); HGB 12.2 g/dL (13.5-17.5); MCH 31.9 pg (27.0-33.0); MCHC 31.8 % (32.0-36.0); MCV 101 fL (80-95); MPV 10.2 fL (8.0-11.0); Platelet Count 242 10^3/uL (130-400); RBC 3.82 10^6/uL (4.36-5.78); RDW 13.2 % (11.8-14.1); RDW-SD 48.5 fL; WBC 7.48 10^3/uL (4.4-10.8)
[2024-11-04 15:36] LABS: BUN 13 mg/dL (7-18); CREATININE 1.4 mg/dL (0.70-1.30); Calcium 9.2 mg/dL (8.5-10.1); Chloride 106 mmol/L (98-107); Estimated GFR 48.95 (mL/min/1.73m2); Glucose 107 mg/dL (74-106); Potassium 4.8 mmol/L (3.5-5.1); Sodium 141 mmol/L (136-145)
[2024-11-04 22:58] LABS: Homocysteine 19.5 umol/L (5.0-13.9)
[2024-11-08 12:33] LABS: Methylmalonic Acid 0.31 nmol/mL (<=0.40)
== END 2024-11-04 03:28 | disposition home or self-care (01) ==
LOC: LBO 03:27
PROVIDERS: Student in an Organized Health Care Education/Training Program; PCP Nurse Practitioner Family; Visit Provider Nurse Practitioner Family
DX: D64.9 Anemia, unspecified (principal); M17.11 Unilateral primary osteoarthritis, right knee; Z01.818 Encounter for other preprocedural examination
CPT/HCPCS: 36415; 80048; 80186; 83090; 85027

== ENCOUNTER 2024-11-16 09:11 | Outpatient (CLI) | payer MEDICARE, SELFPAY ==
--- NOTE | 2024-11-16 07:45 | DI.RAD_ITS ---
Exam(s) XR STANDING ALIGNMENT EXAM: XR STANDING ALIGNMENT CLINICAL HISTORY: PRE OP R TKA. TECHNIQUE: 2D digital imaging was performed. COMPARISON: No exams were available for comparison FINDINGS: 3 views There are some degenerative changes in the knees. In the right knee there is mild lateral joint spac e narrowing and mild valgus deformity. Lesser amount of the same is seen in the left knee. There is no narrowing of the medial compartments in either knee. Both hips appear unremarkable as do the sacroiliac joints. Ankles appear unremarkable. Vascular saul cification is noted in the bilateral femoral and popliteal arteries. Bone density is age-appropriate. There are no significant osseous lesions. IMPRESSION: Degenerative changes in the lateral compartments of both knees, slightly more prominent on the right side. DATA REPOSITORY: RADIATION DOSE DELIVERED:
== END 2024-11-16 09:12 | disposition home or self-care (01) ==
LOC: DIORS 09:11
PROVIDERS: PCP Nurse Practitioner Family; Referring Provider Nurse Practitioner Family; Visit Provider Physician Assistant
DX: M17.0 Bilateral primary osteoarthritis of knee (principal); Z01.818 Encounter for other preprocedural examination
CPT/HCPCS: 77073

== ENCOUNTER 2024-11-23 01:48 | Outpatient (CLI) | payer MEDICARE, SELFPAY ==
--- NOTE | 2024-11-23 12:30 | DI.US_ITS ---
APPROVED REPORT EXAM: Comprehensive 2D, Doppler, and color-flow Echocardiogram Patient Location: Out-Patient [employer] Architect: Ronald Osman RDCS (AE) Indications: Preop clearance Other Information Study Quality: Adequate Conclusion Normal left thickness and chamber size. Ejection fraction is 60 to 65%. Wall motion is normal Normal right ventricular size and function Both atria are normal in size Aortic valve is calcified and trileaflet. There is trace aortic regurgitation. There is mild aortic stenosis. Peak gradient is 27, mean 15 mmHg Mitral annular calcification. Mild mitral regurgitation Mild tricuspid regurgitation. Estimated right ventricular systolic pressure is 29 mmHg Ascending aorta measures 4.24 cm Wall motion Left Ventricle The left ventricle is normal size. The left ventricular systolic function is normal. The left ventric ular ejection fraction is within the normal range. There is normal left ventricular wall thickness. T here is normal LV segmental wall motion. Subcostal region obscured by bowel gas. LVEF is 60-65%. Right Ventricle The right ventricle is normal size. The right ventricular systolic function is normal. Atria The left atrium size is normal. The right atrium size is normal. Subcostal region obscured by bowel g as. Aortic Valve Aortic valve is calcified. Aortic valve is trileaflet. Mild aortic stenosis. Peak aortic valve gradie nt is 27.4 mmHg. Highest mean aortic valve gradient is 15.5 mmHg. Calculated ERIK by the continuity eq uation is 1.2 cm2. Trace aortic regurgitation. Mitral Valve Moderate mitral annular calcification. No evidence of mitral valve stenosis. Mild mitral regurgitatio n. Tricuspid Valve The tricuspid valve is normal in structure. There is no tricuspid valve stenosis. Mild tricuspid regu rgitation. The RVSP is 29.2 mmHg. Pulmonic Valve The pulmonary valve is normal in structure. There is no pulmonic valvular stenosis. Moderate pulmonic regurgitation. Great Vessels The aortic root is normal in size. The ascending aorta is moderately dilated. Aortic arch is normal i n caliber. IVC is normal in size and collapses >50% with inspiration. Pericardium There is no pericardial effusion. 2D Dimensions IVSD d PLAX 1.15 cm M: 0.6-1.2 Ao Root d 3.54 cm M: 3.1 - 3.7 LVPW d PLAX 1.14 cm M: 0.6 - 1.2 Ao Asc Diam d 4.24 cm M: 2.6 - 3.4 LVID d PLAX 4.93 cm M: 4.2 - 5.8 LVDs 3.18 cm M: 2.5 - 4.0 LV EF Teichholz 64.9 % FS 35.61 % LV EDV (Teich) 114.6 mL LV ESV (Teich) 40.2 mL Stroke Vol Index (Teich) 38.73 M-Mode TAPSE 2.09 cm (M/F) >1.7 Auto EF LV EDV A4C 120.8 mL LV EDV A2C 99.1 mL LV EDV BP 111.3 mL LV ESV A4C 48.3 mL LV ESV A2C 39.9 mL LV ESV BP 44.5 mL LVEF(%) A4C 60.0 % LVEF(%) A2C 59.7 % LVEF(%) BP 60.0 % LV SV A4C 72.5 ml LV SV A2C 59.2 ml LV SV BP 66.8 ml LV CO A4C 4.4 L/min LV CO A2C 4.1 L/min LV CO BP 4.3 L/min HR A4C 61.33 BPM HR A2C 69.50 BPM LV EDV Index (BP) LA Volume LA Length A4C 5.5 cm LA Length A2C 5.9 cm LA Area A4C s 19.29 cm2 LA Area A2C s 19.26 cm2 LA Vol A4C A-L 56.92 mL LA Vol A2C A-L 53.57 mL LA Vol Biplane A-L 56.8 mL LA Vol/BSA A4C A-L LA Vol/BSA A2C A-L LA Vol/BSA BP A-L 29.6 mL/m2 LA Vol A4C MOD 54.4 mL LA Vol A2C MOD 51.4 mL LA Vol BP MOD 54.4 mL RA Volume RA Area A4C 7.9 cm2 RA ESV A4C (A-L) 9.9mL RA Vol/BSA A4C A-L RA Length A4C 5.3 cm RA ESV A4C (MOD) 9.1mL LV Diastology MV E' medial 0.052 (>0.07 m/s) MV E Vmax 1.03 (0.4-1.3 m/s) MV E/E' MED 19.85 (<14) MV A Vmax 1.55 (0.4-1.3 m/s) MV E' lateral 0.058 (>0.1 m/s) E/A Ratio 0.7 MV E/E' LAT 17.71 (<14) MV E' Average 0.055 m/s MV E/E'(average) 18.72 Aortic Valve AoV Vmax 2.62 m/s LVOT Vmax 1.18 m/s AoV Peak Grad 41.8 mmHg LVOT Peak Grad 5.6 mmHg AoV Area (Vmax) 1.02 cm2 LVOT VTI 0.312 m AoV VTI 0.601 m LVOT Mean Grad 3.1 mmHg AoV Mean Nelson. 1.84 m/s LVOT SV 70.88 mL AoV Mean Grad 15.5 mmHg LVOT Diam s 1.70 cm AoV Area (VTI) 1.18 cm2 AV Regurg Peak Gr. 27.43 mmHg Velocity Ratio 0.45 AR Decel [place] 2.2m/sec2 AR DT 1679 msec AR PHT 487 msec AR Vmax 3.75 m/s Mitral Valve MV DT 432 (160-240 msec) Pulmonary Valve PV Vmax 0.81 (0.5-1.5 m/s) RVOT Vmax 0.68 m/s PV Peak Grad 2.6 mmHg RVOT Peak Gr. 1.9 mmHg PV Mean Nelson 0.58 m/s RVOT VTI 0.150 m PV Mean Grad 1.5 mmHg RVOT Mean Gr. 1.1 mmHg Tricuspid Valve RA Pressure 3.00 mmHg TR Vmax 2.56 m/s TR Peak Grad 26.2 mmHg RVSP (TR) 29.2 mmHg
== END 2024-11-23 02:08 ==
LOC: DI 01:48
PROVIDERS: PCP Nurse Practitioner Family; Visit Provider Internal Medicine Cardiovascular Disease
DX: I08.3 Combined rheumatic disorders of mitral, aortic and tricuspid valves (principal); Z01.818 Encounter for other preprocedural examination; M17.0 Bilateral primary osteoarthritis of knee
CPT/HCPCS: 93306

== ENCOUNTER 2024-11-25 09:20 | Outpatient (CLI) | payer MEDICARE, SELFPAY ==
--- NOTE | 2024-11-25 06:00 | DI.RAD_ITS ---
Exam(s) XR PAIN CLINIC CERVICAL SP 2V EXAM: XR PAIN CLINIC CERVICAL SP 2V CLINICAL HISTORY: DX: Cervical Spondylosis TECHNIQUE: 2D and realtime digital imaging was performed. CONTRAST MATERIAL: Refer to procedure report. COMPARISON: No exams were available for comparison FINDINGS: Fluoroscopy was provided for Dr. Newell during the performance of a cervical facet joint injection. Please refer to the procedure report for complete details. Ka,r=12.9 mGy IMPRESSION: RADIATION DOSE DELIVERED: 0.0 0.0 0
[2024-11-25 09:29] VITALS: BP 107/80; PULSE 61; RESP 20; TEMP 36.7; O2SAT 97
[2024-11-25 09:52] VITALS: PULSE 63; O2SAT 93
[2024-11-25 10:00] VITALS: PULSE 61; O2SAT 96
[2024-11-25] MEDS: Omnipaque 240 MG/ML 50 ML BTL IJ (10:10)
[2024-11-25] MEDS: Bupivacaine 0.5% Pres-Free 10 ML VIAL IJ (10:10)
[2024-11-25] MEDS: methylPREDNISolone ACETATE 80 MG/ML VIAL IJ (10:11)
[2024-11-25] MEDS: Nerve Block Tray 1 EACH MC (10:11)
--- NOTE | 2024-11-25 10:11 | PDOC.PAIN_ITS ---
Date of service: 11/25/24 Time of Service: 10:16 Pain Managment Procedure Note Procedure Note Procedure Note: Cervical Facet Joint Injection of Steroid ? Location: Right Facet Joints ? Levels: C5-6, C6-7 ? Pre-procedure Diagnosis: M47.812 Spondylosis without myelopathy or radiculopathy, cervical region ? Post-procedure Diagnosis:? The same as above ? Sedation:? None ? Estimated blood loss:? less than 2 cc ? Surgeon: Ky Newell MD COMMENT: PRE PROCEDURE PAIN SCORE: 5/10. Decision was made to proceed with intra-articular facet injections for the possibility of not having to do medial branch blocks and radiofrequency ablation if patient get long lasting relief (> 3 months). ? Procedure Detail:? The procedure and potential risks were explained to the patient and informed written consent was obtained. The patient was escorted to the procedure room and placed in the left lateral decubitus position. Pillows were utilized for proper positioning and comfort.? Time out was performed in the procedure room with nursing staff confirming the patient's identity, procedure to be performed, allergies, and any blood thinning or anti- platelet medications.? Sterile technique was maintained throughout the procedur e.? The patient's cervical area was prepped with chlorhexidine and draped in a sterile fashion. A lateral fluoroscopic view was obtained, with visualization of the facet joint.? A 25gauge, Quincke needle was gently advanced through the facet capsule.? Needle placement was confirmed with fluoroscopy in AP,? and lateral views by injecting 0.25cc of contrast.? 10 mg of depomedrol and 0.25ml of 0.5% bupivacaine was injected into the capsule at C5-6 and C6-7 right.? The patient tolerated the procedure well and was discharged with instructions. Permanent images saved and recorded. PAIN: PRE-PROCEDURE 11/21 POST-PROCEDURE 08/24 Plan:? Follow up prn COMMENT: Before the patient left patient had greater than 50% pain relief.? Will use this as both diagnostic and potentially therapeutic.? With short-term relief from the level that it was not long-lasting then we will proceed with radiofrequency ablation Coding Conscious Sedation used for procedure: No CPT Codes: CMBB (includes Fluoro) Cervical/Thoracic, 2nd lvl - 47210 ([id number] ~G) CMBB (includes Fluoro) Cervical/Thoracic, single lvl - 30020 ([id number] ~G) Additional Codes: Date of Service (35153) Date of service: 11/25/24
== END 2024-11-25 09:21 | disposition home or self-care (01) ==
LOC: PC 09:20
PROVIDERS: PCP Nurse Practitioner Family; Visit Provider Anesthesiology Pain Medicine
DX: M47.812 Spondylosis without myelopathy or radiculopathy, cervical region (principal); M54.2 Cervicalgia
CPT/HCPCS: 64490; 64491; 72040; J0665; J1010; Q9967

== ENCOUNTER 2024-12-02 09:38 | Day surgery (SDC) | payer MEDICARE, SELFPAY ==
[2024-12-02] VITALS (32 sets, daily range): BP systolic 106–170; BP diastolic 59–99; PULSE 46–77; RESP 10–19; TEMP 36–36.6; O2SAT 93–99; BMI 29.1
--- NOTE | 2024-12-02 07:33 | W.PM.DSUDISC ---
Date of service: 12/02/24 Discharge Plan Disposition Patient Disposition: Home Condition: Good Discharge Details Reason For Visit: R CHRISTOPHERR Attending Provider: Maximiliano Renee Primary Care Provider: Martita Nunes Home Meds and New Rx's Prescriptions: New celecoxib 200 mg capsule 200 mg PO BID Qty: 60 0RF aspirin 81 mg tablet,delayed release (DR/EC) 81 mg PO BID Qty: 60 0RF acetaminophen 500 mg tablet 1,000 mg PO TID Qty: 90 3RF pantoprazole 40 mg tablet,delayed release (DR/EC) 40 mg PO DAILY Qty: 14 0RF dexamethasone 4 mg tablet 4 mg PO DAILY Qty: 2 0RF docusate sodium 100 mg capsule 100 mg PO BID PRNQty: 28 0RF oxycodone 5 mg tablet 5 mg PO Q4H PRNQty: 18 0RF Continued folic acid 1 mg tablet 1 mg PO DAILY Qty: 90 3RF Rx Instructions: Low folic acid levothyroxine 75 mcg tablet 75 mcg PO DAILY Qty: 90 3RF sucralfate 1 gram tablet 1 g PO QID Qty: 360 3RF albuterol 90 mcg/actuation aerosol 90 mcg inhalation DAILY Patient Comments: prn Atrovent HFA 17 mcg/actuation HFA aerosol inhaler 2 puff inhalation QID MDD 8 60 Days Qty: 12.9 4RF Patient Comments: prn Rx Instructions: use 2 puffs 4 times daily (either inhaler OR nebulizer) for cough and phlegm. mecobalamin (vitamin B12) 500 mcg tablet,chewable 500 mcg PO DAILY Qty: 90 1RF gabapentin 100 mg capsule 200 mg PO TID Qty: 60 1RF Rx Instructions: Trial taper: (2) capsules 3/day x1week (1) capsule 3/day x1week (1) @ bedtime [id number], then stop gabapentin 600 mg tablet 300 mg PO QHS Qty: 60 2RF sertraline 25 mg tablet 25 mg PO DAILY Qty: 30 3RF ipratropium bromide 21 mcg (0.03 %) spray,non-aerosol 2 spray intranasal TID MDD 6 Qty: 30 6RF Rx Instructions: administer 2 sprays into each nostril up to 3 times daily losartan 50 mg tablet 50 mg PO DAILY Qty: 90 1RF lorazepam 0.5 mg tablet 0.5 mg PO ONCE PRN (Reason: anxiety) Qty: 1 0RF Rx Instructions: take 1 tablet 20 min prior to MRI fluticasone propion-salmeterol [Advair HFA] 230-21 mcg/actuation HFA aerosol inhaler 2 puff inhalation BID Qty: 12 12RF ondansetron HCl 4 mg tablet See Rx Instructions .ROUTE .COMPLEX Qty: 60 1RF Dose Instruction: TAKE ONE TABLET BY MOUTH TWICE A DAY NEEDED FOR NAUSEA/IBS Patient Comments: prn Rx Instructions: TAKE ONE TABLET BY MOUTH TWICE A DAY NEEDED FOR NAUSEA/IBS Discharge Instructions Additional Instructions: Total Knee Discharge Instructions Activity: The most important activity is to walk and to work on gentle motion (both flexion and extension). You should try to take short walks a few times a day. It is important that when resting you work on keeping the knee straight. Avoid putting a pillow behind the knee as this will encourage flexion. Work on range of motion exercises as provided by Physical Therapy. - Start outpatient physical therapy within 2 weeks. - You should wear the ADIEL hose on both legs for 2 weeks. You may remove these at night. You may also use any compression sock in place of the ADIEL hose. - Utilize [employer] to review exercises, see videos on exercises and obtain basic information pertaining to your surgery and your recovery. Dressing: Remove the Dustin wrap by 2 days after your surgery and put on the ADIEL stocking given to you from the hospital. Keep the surgical dressing (underneath the DUSTIN wrap) in place for at least one week. After the first week it may be removed and replaced with light gauze and tape or nothing. The wound and dressing may get wet after 3 days but avoid soaking the dressing or otherwise it will need to be changed. Many people prefer covering the dressing with cling wrap (saran wrap) to minimize it from getting soaked. If it gets wet, just pat dry. If it starts to peel off then it will need to be changed. Medications: - You should take Tylenol and anti-inflammatory Celebrex as your primary pain control medications. If the Celebrex is too expensive or not covered, please call the office for another alternative (Advil/Ibuprofen or Naproxen/Aleve) - You have been prescribed a stronger pain medication Oxycodone for breakthrough pain, take as needed as prescribed. - You have also been prescribed a stomach acid reduction agent Pantoprozole to help reduce stomach acid and reflux. - You will cointinue your Gabapentin to take at night for restlessness and nerve pain. - You will be taking Aspirin 81mg twice a day for DVT prevention unless instructed otherwise. - You have also been prescribed Decadron to take to control post-operative nausea and pain. You will start this tomorrow. - If you have constipation you should take Colace or Miralax (both [id number]). It takes most people 3-4 days to have a bowel movement. Follow-up: 2 weeks If you have any acute concerns or questions, please do not hesitate to contact the office at [phone]. You may contact Dr. Renee with any questions after hours through the hospital at [phone] or on his cell phone at [phone]. Referrals: Maximiliano Renee MD [ [facility] STAFF PHYSICIAN] - Equipment/Supplies: Walker Activity:: Activity as Tolerated Shower/Bathe:: 72 hours Diet:: As Tolerated Discharge Orders Discharge Orders: Discharge Order (Routine); Ordered 12/02/24 Ordered By: Nicholas Brock DS: Diagnosis Discharge Diagnosis (1) Osteoarthritis of both knees: Status: Acute
[2024-12-02] MEDS: Acetaminophen 500 MG TAB 1000 MG PO (10:14)
[2024-12-02] MEDS: Celecoxib 200 MG CAP 400 MG PO (10:14)
[2024-12-02] MEDS: Lactated Ringers 1,000 ML 80 ML IV (10:31)
--- NOTE | 2024-12-02 10:51 | W.ANESPRE ---
General Info Date of Service Date Performed: 12/02/24 Height: 5 ft 7 in Weight: 84.368 kg Body Mass Index (BMI): 29.1 Surgical Procedure: Operation Date: 12/02/24 12:40 Proposed Procedure Side Surgeon p Knee Total Arthroplasty w/OrthAlign Right Maximiliano Renee MD Meds Allergies and Home Medications Allergies Allergy/AdvReac Type Severity Reaction Status Date / Time azithromycin AdvReac Severe Nausea Verified 12/02/24 09:56 diclofenac AdvReac Intermediate gi upset Verified 12/02/24 09:56 alcohol AdvReac Unknown hx of etoh Verified 12/02/24 09:56 abuse Home Medication ?Medication ?Instructions ?Recorded Atrovent HFA 17 mcg/actuation 2 puff inhalation QID cough 2 04/06/24 aerosol inhaler (ipratropium months #12.9 grams bromide) folic acid 1 mg tablet 1 mg PO DAILY #90 tabs 04/22/24 levothyroxine 75 mcg tablet 75 mcg PO DAILY #90 tab-caps 04/22/24 sucralfate 1 gram tablet 1 g PO QID #360 tabs 04/22/24 albuterol 90 mcg/actuation aerosol 90 mcg inhalation DAILY 07/13/24 inhaler mecobalamin (vitamin B12) 500 mcg 500 mcg PO DAILY #90 tabs 07/29/24 chewable tablet ipratropium bromide 21 mcg (0.03 2 spray intranasal TID sinus 09/16/24 %) nasal spray congestion #30 mL lorazepam 0.5 mg tablet 0.5 mg PO ONCE PRN anxiety #1 tab 10/13/24 losartan 50 mg tablet 50 mg PO DAILY #90 tabs 10/13/24 gabapentin 100 mg capsule 200 mg (2 x 100 mg) PO TID taper 11/03/24 off - est over 4 weeks #60 caps gabapentin 600 mg tablet 300 mg (1/2 x 600 mg) PO QHS #60 11/03/24 tabs sertraline 25 mg tablet 25 mg PO DAILY anxiety #30 tabs 11/03/24 fluticasone propionate 230 2 puff inhalation BID #12 grams 11/26/24 mcg-salmeterol 21 mcg/actuation HFA inhaler (Advair HFA) ondansetron HCl 4 mg tablet See Rx Instructions .Route 11/26/24 .COMPLEX #60 tabs acetaminophen 500 mg tablet 1,000 mg (2 x 500 mg) PO TID #90 12/02/24 tabs aspirin 81 mg tablet,delayed 81 mg PO BID #60 tabs 12/02/24 release celecoxib 200 mg capsule 200 mg PO BID #60 caps 12/02/24 dexamethasone 4 mg tablet 4 mg PO DAILY #2 tabs 12/02/24 docusate sodium 100 mg capsule 100 mg PO BID PRN #28 caps 12/02/24 oxycodone 5 mg tablet 5 mg PO Q4H PRN #18 tabs 12/02/24 pantoprazole 40 mg tablet,delayed 40 mg PO DAILY #14 tabs 12/02/24 release Current Visit Medications: Current Medications Generic Name Dose Route Start Last Admin Trade Name Zana PRN Reason Stop Dose Admin Acetaminophen 1,000 mg 12/02/24 06:00 12/02/24 10:14 Acetaminophen 500 Mg Tab PO 12/02/24 23:59 1,000 mg PREOP VIRAJ Administration Acetaminophen 1,000 mg 12/02/24 07:28 Acetaminophen 500 Mg Tab PO 01/01/25 07:27 TID PRN PRN Analgesia Celecoxib 400 mg 12/02/24 06:00 12/02/24 10:14 Celecoxib 200 Mg Cap PO 12/02/24 23:59 400 mg PREOP VIRAJ Administration Docusate Sodium 100 mg 12/02/24 07:28 Docusate Sodium 100 Mg Cap PO 01/01/25 07:27 BID PRN PRN Constipation Gabapentin 300 mg 12/02/24 06:00 Gabapentin 300 Mg Cap PO 12/02/24 23:59 PREOP VIRAJ Ringer's Solution 1,000 mls @ 80 mls/hr 12/02/24 06:00 12/02/24 10:31 IV 12/02/24 23:59 80 mls/hr INFUSION VIRAJ Administration Cefazolin Sodium/Dextrose 2 gm in 50 mls @ 100 mls/hr 12/02/24 06:00 Ancef Duplex IVPB 12/02/24 23:59 PREOP VIRAJ Tranexamic Acid/Sodium Chloride 1,000 mg in 100 mls @ 600 mls/hr 12/02/24 06:00 IVPB 12/02/24 23:59 PREOP VIRAJ IV Miscellaneous Supplies 1 each 12/02/24 06:00 Iv Access IV 12/02/24 23:59 DIRECTED VIRAJ Ondansetron HCl 4 mg 12/02/24 07:28 Ondansetron 4 Mg/2 Ml Vial IVP 01/01/25 07:27 Q6H PRN PRN Nausea Oxycodone HCl 0 mg 12/02/24 07:28 Oxycodone 5 Mg Tab PO 01/01/25 07:27 Q3H PRN PRN Pain Polyethylene Glycol 17 gm 12/02/24 07:28 Polyethylene Glycol 3350 17 Gm Packet PO 01/01/25 07:27 BID PRN PRN Constipation Sodium Chloride 0 ml 12/02/24 06:00 Normal Saline Flush 10 Ml Syr IV 12/02/24 23:59 PRN PRN Sodium Chloride 0 ml 12/02/24 06:00 Normal Saline 10 Ml Vial IJ 12/02/24 23:59 DIRECTED PRN Sterile Water 0 ml 12/02/24 06:00 Water,Injection,Sterile 10 Ml Vial IJ 12/02/24 23:59 DIRECTED PRN Tranexamic Acid 1,300 mg 12/02/24 12:00 Tranexamic Acid 650 Mg Tab PO 12/02/24 12:01 ONCE ONE PFSH Active Problems Active Problems: Problem Status Onset Code History of total right knee replacement Acute 12/02/24 Z96.651 History of depression Acute Z86.59 Sacroiliac joint dysfunction of both sides Acute M53.3 Cervical radiculitis Acute M54.12 Elevated blood pressure reading without diagnosis of hypertension Acute R03.0 Renal injury Acute S37.009A Cervicalgia Acute M54.2 Mechanical low back pain Acute M54.59 Lumbar spondylosis Acute M47.816 Right lumbar radiculitis Acute M54.16 Osteoarthritis of both knees Acute M17.0 Numbness of right lower extremity Acute R20.0 Leg pain, right Acute M79.604 Hypotension Acute I95.9 Lung nodule seen on imaging study Acute ~03/2024 R91.1 Nasal obstruction Acute J34.89 Deviated nasal septum Acute J34.2 Chronic sinusitis Chronic J32.9 Ex-smoker for more than 1 year Acute Z87.891 History of chronic cough Acute Z87.898 Folate deficiency Chronic ~01/2021 E53.8 Hypertension, essential Chronic ~12/19/20 I10 Anemia Chronic D64.9 Elevated MCV Acute R71.8 Anxiety Chronic F41.9 Asthma Acute J45.909 Benign prostatic hyperplasia Chronic N40.0 Chronic low back pain Chronic 06/10/13 M54.5, G89.29 Gastroesophageal reflux disease with esophagitis Chronic 01/25/15 K21.0 Hyperlipidemia, unspecified Chronic 06/13/15 E78.5 IBS (irritable bowel syndrome) Chronic K58.9 Hypothyroidism Chronic E03.9 Medical History Medical History Pain in both lower extremities Flexeril + Diclofenac; declines work-up Cardiac murmur (~04/2022) Declines work-up; 2008 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 Diverticulosis of sigmoid colon (~2015) Seen on colonoscopy Eczema COVID-19 determined by clinical diagnostic criteria (~02/2021) Actinic keratosis of multiple sites of head and neck Right sided sciatica Environmental allergies Allergic rhinitis Disorder characterized by back pain chronic diffuse; w/ right sciatica Palpitations (06/13/15) Tobacco use 20 pack year history of smoking, quit 1979' Ventricular arrhythmia Neg echo, Neg ETT, Holter 220 PVC's unifocal/hr Oral lichen planus (~02/2018) Asthma Low back pain Surgical History Surgical History Colonoscopy - IV Sedation (02/22/16) Dr mccann, normal, no repeat Tobacco Smoking/Tobacco Use Status: Former Tobacco Use Passive smoking exposure: No Alcohol Alcohol Intake: former Substance Use Substance use: Current Sobriety Substance use type: does not use Details: H/O drug addiction back in his late 30s-40s. Vital Signs and Lab Results Vital Signs Most Recent Vital Signs in EMR: Most Recent Vital Signs Temp Pulse Resp BP Pulse Ox 36.2 C L 77 16 130/93 H 98 12/02/24 09:44 12/02/24 09:44 12/02/24 09:44 12/02/24 09:44 12/02/24 09:44 Lab Results Blood Type / Crossmatch: No Data to Display Complete Blood Count: White Blood Count 7.48 10^3/uL (4.4-10.8) 11/04/24 13:00 Red Blood Count 3.82 10^6/uL (4.36-5.78) L 11/04/24 13:00 Hemoglobin 12.2 g/dL (13.5-17.5) L 11/04/24 13:00 Hematocrit 38.4 % (40.0-50.0) L 11/04/24 13:00 Platelet Count 242 10^3/uL (130-400) 11/04/24 13:00 Complete Metabolic Panel: Sodium 141 mmol/L (136-145) 11/04/24 13:00 Potassium 4.8 mmol/L (3.5-5.1) 11/04/24 13:00 Chloride 106 mmol/L (98-107) 11/04/24 13:00 Carbon Dioxide 27.0 mmol/L (21.0-32.0) 11/04/24 13:00 BUN 13 mg/dL (7-18) 11/04/24 13:00 Creatinine 1.4 mg/dL (0.70-1.30) H 11/04/24 13:00 Est GFR (CKD-EPI 2020) 48.95 (mL/min/1.73m2) 11/04/24 13:00 Calcium 9.2 mg/dL (8.5-10.1) 11/04/24 13:00 Glucose 107 mg/dL (74-106) H 11/04/24 13:00 Liver Function Panel: No Data to Display Coagulation Panel: No Data to Display Cardiac Panel: No Data to Display Arterial Blood Gas: No Data to Display Venous Blood Gas: No Data to Display Pancreas Panel: No Data to Display Thyroid Panel: No Data to Display Infectious Disease: No Data to Display Blood Cultures: No Data to Display Toxicology Panel: No Data to Display Anesthesia Assessment and Plan Anesthesia History Personal History: No History of Anesthesia Complications Family History: Family History Unknown Implantable Cardiac Device Does patient have a Pacemaker or an ICD?: No ASA Classification ASA Score: ASA 2 Emergency Case?: No NPO Status NPO Status: NPO Clears >2 hours, Solids >8 hours Anesthesia Plan Resuscitation Status: Full Code Anesthesia Technique: Spinal Anesthesia Airway Planned: Natural Airway Pain Management: Surgeon and patient request nerve block Monitors Used: Standard Monitors
--- NOTE | 2024-12-02 11:10 | W.ANESPRE ---
General Info Date of Service Date Performed: 12/02/24 Height: 5 ft 7 in Weight: 84.368 kg Body Mass Index (BMI): 29.1 Surgical Procedure: Operation Date: 12/02/24 12:40 Proposed Procedure Side Surgeon p Knee Total Arthroplasty w/OrthAlign Right Maximiliano Renee MD Meds Allergies and Home Medications Allergies Allergy/AdvReac Type Severity Reaction Status Date / Time azithromycin AdvReac Severe Nausea Verified 12/02/24 09:56 diclofenac AdvReac Intermediate gi upset Verified 12/02/24 09:56 alcohol AdvReac Unknown hx of etoh Verified 12/02/24 09:56 abuse Home Medication ?Medication ?Instructions ?Recorded Atrovent HFA 17 mcg/actuation 2 puff inhalation QID cough 2 04/06/24 aerosol inhaler (ipratropium months #12.9 grams bromide) folic acid 1 mg tablet 1 mg PO DAILY #90 tabs 04/22/24 levothyroxine 75 mcg tablet 75 mcg PO DAILY #90 tab-caps 04/22/24 sucralfate 1 gram tablet 1 g PO QID #360 tabs 04/22/24 albuterol 90 mcg/actuation aerosol 90 mcg inhalation DAILY 07/13/24 inhaler mecobalamin (vitamin B12) 500 mcg 500 mcg PO DAILY #90 tabs 07/29/24 chewable tablet ipratropium bromide 21 mcg (0.03 2 spray intranasal TID sinus 09/16/24 %) nasal spray congestion #30 mL lorazepam 0.5 mg tablet 0.5 mg PO ONCE PRN anxiety #1 tab 10/13/24 losartan 50 mg tablet 50 mg PO DAILY #90 tabs 10/13/24 gabapentin 100 mg capsule 200 mg (2 x 100 mg) PO TID taper 11/03/24 off - est over 4 weeks #60 caps gabapentin 600 mg tablet 300 mg (1/2 x 600 mg) PO QHS #60 11/03/24 tabs sertraline 25 mg tablet 25 mg PO DAILY anxiety #30 tabs 11/03/24 fluticasone propionate 230 2 puff inhalation BID #12 grams 11/26/24 mcg-salmeterol 21 mcg/actuation HFA inhaler (Advair HFA) ondansetron HCl 4 mg tablet See Rx Instructions .Route 11/26/24 .COMPLEX #60 tabs acetaminophen 500 mg tablet 1,000 mg (2 x 500 mg) PO TID #90 12/02/24 tabs aspirin 81 mg tablet,delayed 81 mg PO BID #60 tabs 12/02/24 release celecoxib 200 mg capsule 200 mg PO BID #60 caps 12/02/24 dexamethasone 4 mg tablet 4 mg PO DAILY #2 tabs 12/02/24 docusate sodium 100 mg capsule 100 mg PO BID PRN #28 caps 12/02/24 oxycodone 5 mg tablet 5 mg PO Q4H PRN #18 tabs 12/02/24 pantoprazole 40 mg tablet,delayed 40 mg PO DAILY #14 tabs 12/02/24 release Current Visit Medications: Current Medications Generic Name Dose Route Start Last Admin Trade Name Zana PRN Reason Stop Dose Admin Acetaminophen 1,000 mg 12/02/24 06:00 12/02/24 10:14 Acetaminophen 500 Mg Tab PO 12/02/24 23:59 1,000 mg PREOP VIRAJ Administration Acetaminophen 1,000 mg 12/02/24 07:28 Acetaminophen 500 Mg Tab PO 01/01/25 07:27 TID PRN PRN Analgesia Celecoxib 400 mg 12/02/24 06:00 12/02/24 10:14 Celecoxib 200 Mg Cap PO 12/02/24 23:59 400 mg PREOP VIRAJ Administration Docusate Sodium 100 mg 12/02/24 07:28 Docusate Sodium 100 Mg Cap PO 01/01/25 07:27 BID PRN PRN Constipation Gabapentin 300 mg 12/02/24 06:00 Gabapentin 300 Mg Cap PO 12/02/24 23:59 PREOP VIRAJ Ringer's Solution 1,000 mls @ 80 mls/hr 12/02/24 06:00 12/02/24 10:31 IV 12/02/24 23:59 80 mls/hr INFUSION VIRAJ Administration Cefazolin Sodium/Dextrose 2 gm in 50 mls @ 100 mls/hr 12/02/24 06:00 Ancef Duplex IVPB 12/02/24 23:59 PREOP VIRAJ Tranexamic Acid/Sodium Chloride 1,000 mg in 100 mls @ 600 mls/hr 12/02/24 06:00 IVPB 12/02/24 23:59 PREOP VIRAJ IV Miscellaneous Supplies 1 each 12/02/24 06:00 Iv Access IV 12/02/24 23:59 DIRECTED VIRAJ Ondansetron HCl 4 mg 12/02/24 07:28 Ondansetron 4 Mg/2 Ml Vial IVP 01/01/25 07:27 Q6H PRN PRN Nausea Oxycodone HCl 0 mg 12/02/24 07:28 Oxycodone 5 Mg Tab PO 01/01/25 07:27 Q3H PRN PRN Pain Polyethylene Glycol 17 gm 12/02/24 07:28 Polyethylene Glycol 3350 17 Gm Packet PO 01/01/25 07:27 BID PRN PRN Constipation Sodium Chloride 0 ml 12/02/24 06:00 Normal Saline Flush 10 Ml Syr IV 12/02/24 23:59 PRN PRN Sodium Chloride 0 ml 12/02/24 06:00 Normal Saline 10 Ml Vial IJ 12/02/24 23:59 DIRECTED PRN Sterile Water 0 ml 12/02/24 06:00 Water,Injection,Sterile 10 Ml Vial IJ 12/02/24 23:59 DIRECTED PRN Tranexamic Acid 1,300 mg 12/02/24 12:00 Tranexamic Acid 650 Mg Tab PO 12/02/24 12:01 ONCE ONE PFSH Active Problems Active Problems: Problem Status Onset Code History of total right knee replacement Acute 12/02/24 Z96.651 History of depression Acute Z86.59 Sacroiliac joint dysfunction of both sides Acute M53.3 Cervical radiculitis Acute M54.12 Elevated blood pressure reading without diagnosis of hypertension Acute R03.0 Renal injury Acute S37.009A Cervicalgia Acute M54.2 Mechanical low back pain Acute M54.59 Lumbar spondylosis Acute M47.816 Right lumbar radiculitis Acute M54.16 Osteoarthritis of both knees Acute M17.0 Numbness of right lower extremity Acute R20.0 Leg pain, right Acute M79.604 Hypotension Acute I95.9 Lung nodule seen on imaging study Acute ~03/2024 R91.1 Nasal obstruction Acute J34.89 Deviated nasal septum Acute J34.2 Chronic sinusitis Chronic J32.9 Ex-smoker for more than 1 year Acute Z87.891 History of chronic cough Acute Z87.898 Folate deficiency Chronic ~01/2021 E53.8 Hypertension, essential Chronic ~12/19/20 I10 Anemia Chronic D64.9 Elevated MCV Acute R71.8 Anxiety Chronic F41.9 Asthma Acute J45.909 Benign prostatic hyperplasia Chronic N40.0 Chronic low back pain Chronic 06/10/13 M54.5, G89.29 Gastroesophageal reflux disease with esophagitis Chronic 01/25/15 K21.0 Hyperlipidemia, unspecified Chronic 06/13/15 E78.5 IBS (irritable bowel syndrome) Chronic K58.9 Hypothyroidism Chronic E03.9 Medical History Medical History Pain in both lower extremities Flexeril + Diclofenac; declines work-up Cardiac murmur (~04/2022) Declines work-up; 2008 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 Diverticulosis of sigmoid colon (~2015) Seen on colonoscopy Eczema COVID-19 determined by clinical diagnostic criteria (~02/2021) Actinic keratosis of multiple sites of head and neck Right sided sciatica Environmental allergies Allergic rhinitis Disorder characterized by back pain chronic diffuse; w/ right sciatica Palpitations (06/13/15) Tobacco use 20 pack year history of smoking, quit 1979' Ventricular arrhythmia Neg echo, Neg ETT, Holter 220 PVC's unifocal/hr Oral lichen planus (~02/2018) Asthma Low back pain Surgical History Surgical History Colonoscopy - IV Sedation (02/22/16) Dr mccann, normal, no repeat Tobacco Smoking/Tobacco Use Status: Former Tobacco Use Passive smoking exposure: No Alcohol Alcohol Intake: former Substance Use Substance use: Current Sobriety Substance use type: does not use Details: H/O drug addiction back in his late 30s-40s. Vital Signs and Lab Results Vital Signs Most Recent Vital Signs in EMR: Most Recent Vital Signs Temp Pulse Resp BP Pulse Ox 36.2 C L 77 16 130/93 H 98 12/02/24 09:44 12/02/24 09:44 12/02/24 09:44 12/02/24 09:44 12/02/24 09:44 Lab Results Blood Type / Crossmatch: No Data to Display Complete Blood Count: White Blood Count 7.48 10^3/uL (4.4-10.8) 11/04/24 13:00 Red Blood Count 3.82 10^6/uL (4.36-5.78) L 11/04/24 13:00 Hemoglobin 12.2 g/dL (13.5-17.5) L 11/04/24 13:00 Hematocrit 38.4 % (40.0-50.0) L 11/04/24 13:00 Platelet Count 242 10^3/uL (130-400) 11/04/24 13:00 Complete Metabolic Panel: Sodium 141 mmol/L (136-145) 11/04/24 13:00 Potassium 4.8 mmol/L (3.5-5.1) 11/04/24 13:00 Chloride 106 mmol/L (98-107) 11/04/24 13:00 Carbon Dioxide 27.0 mmol/L (21.0-32.0) 11/04/24 13:00 BUN 13 mg/dL (7-18) 11/04/24 13:00 Creatinine 1.4 mg/dL (0.70-1.30) H 11/04/24 13:00 Est GFR (CKD-EPI 2020) 48.95 (mL/min/1.73m2) 11/04/24 13:00 Calcium 9.2 mg/dL (8.5-10.1) 11/04/24 13:00 Glucose 107 mg/dL (74-106) H 11/04/24 13:00 Liver Function Panel: No Data to Display Coagulation Panel: No Data to Display Cardiac Panel: No Data to Display Arterial Blood Gas: No Data to Display Venous Blood Gas: No Data to Display Pancreas Panel: No Data to Display Thyroid Panel: No Data to Display Infectious Disease: No Data to Display Blood Cultures: No Data to Display Toxicology Panel: No Data to Display Imaging and Studies Imaging and Studies Study information below may be from another EMR and interpreted by another provider. Please see original notes in EMR for more complete details. EKG Summary: 06/01/24: Exam: Resting ECG Reason for Exam: chest pain Patient Location: E HR:84 bpm ECG Measurements Heart Rate 84 AXIS AZ 181 P -8 QRSd 82 QRS -32 QT 378 T46 QTc 447 Conclusion Sinus rhythm...normal P axis, V-rate 60- [address] segment or T wave abnormalities to suggest occlusive MS I have reviewed and I agree with the emergency room physician's ECG interpretation. Echocardiogram Summary: 11/23/24: Conclusion Normal left thickness and chamber size. Ejection fraction is 60 to 65%. Wall motion is normal Normal right ventricular size and function Both atria are normal in size Aortic valve is calcified and trileaflet. There is trace aortic regurgitation. There is mild aortic stenosis. Peak gradient is 27, mean 15 mmHg Mitral annular calcification. Mild mitral regurgitation Mild tricuspid regurgitation. Estimated right ventricular systolic pressure is 29 mmHg Ascending aorta measures 4.24 cm Pulmonary Function Summary: 06/27/24: Pulmonary Function Test Result Indications: Cough Interpretation Spirometry: There was a 30% decrease in FEV1 with administration of 0.5mg/mL Clinical Correlation therefore is recommended Anesthesia Assessment and Plan Anesthesia History Personal History: No History of Anesthesia Complications Family History: Family History Unknown Exercise Tolerance Exercise Tolerance: Metabolic Equivalents>4 Pertinent Negatives Pertinent Negatives: No Symptoms of GERD Cardiac & Pulmonary Exam Cardiac Exam: Normal S1/S2 Heart Sounds and Heart Murmur Present Pulmonary Exam: Clear Bilateral Breath Sounds and No cough or Cold Implantable Cardiac Device Does patient have a Pacemaker or an ICD?: No Airway Exam Known Difficult Airway: No Mallampati Class: 4 Mouth Opening: Normal (> 3cm) Thyromental Distance: Greater than 3 cm Neck Range of Motion: Full ROM Neck Circumference: Normal Teeth Condition: Generalized Poor Dentition ASA Classification ASA Score: ASA 3 Emergency Case?: No NPO Status NPO Status: NPO Clears >2 hours, Solids >8 hours Anesthesia Plan Resuscitation Status: Full Code Anesthesia Technique: Spinal Anesthesia Airway Planned: Natural Airway Pain Management: Surgeon and patient request nerve block Monitors Used: Standard Monitors
[2024-12-02] MEDS: ceFAZolin 2 GM/50 ML BAG IVPB (11:55)
[2024-12-02] MEDS: TRANEXAMIC ACID/SOD. CHL. 1,000 MG/100 ML BAG 600 MG IVPB (12:00)
--- NOTE | 2024-12-02 12:17 | W.ANESNERVE ---
Nerve Block Single Injection Procedure Date and Time Date Performed: 12/02/24 Procedure Start: 11:18 Location Where Procedure Performed Procedure Location: Day Surgery Unit Reason Performed: Postoperative Analgesia Requesting Provider: Maximiliano Renee Timeout Performed Timeout Performed: Yes Monitoring Used ECG, Blood Pressure, SpO2 and See EMR for corresponding vital signs Sterility Sterility: Hand Hygiene, Surgical Cap, Surgical Mask, Sterile Gloves, Eye Protection and Chlorhexidine Sedation Given During Procedure Sedation Given (Indicate Dose Given): No Sedation given Patient Mental Status Patient Mental Status: Awake Nerve Block 1st Nerve Block: Laterality: Right Block Type: Adductor Canal Ultrasound Image Saved?: Yes Needle / Catheter Used: 100mm SonoPlex II Local Anesthetic Bolus (Indicate Dose Given): Lidocaine used for local infiltration of skin, Injected in 3-5ml increments after negative blood aspiration, Bupivacaine 0.25% Dose:: 7.5 ml and Exparel Dose:: 7.5 ml Additives (Indicate Dose Given): Normal Saline (5 ml) Ultrasound: Sterile probe cover and gel used Nerve Stimulator: Supplement to Ultrasound use and No twitch or parasthesia noted < 0.5 mA Paresthesia: None Procedure Tolerated: No Complications and Patient tolerated well Procedure Outcome: Successful Performed By: Naren Aggarwal Supervised By: Sasha Felton
--- NOTE | 2024-12-02 13:30 | W.PM.OP ---
Operative Note Operative Note PRE-OP DIAGNOSIS: Right Knee Osteoarthritis with Valgus Deformity POST-OP DIAGNOSIS: same PROCEDURE: Right Total Knee Replacement with Intraoperative Navigation SURGEON: Maximiliano Renee [employer]: [employer] ANESTHESIA TYPE: Spinal Refer to Anesthesia Record ESTIMATED BLOOD LOSS: 100 PATHOLOGY: none sent TOURNIQUET TIME: 0 COMPLICATIONS: None Patient was transported to: PACU Patient's condition: stable Implants: 1. Depuy Attune Cementless Cruciate Retaining Femoral Component, Size 8 2. Depuy Attune Cementless Fixed Bearing Tibial Component, Size 9 3. Depuy Attune 8x8mm CR/FB Poly Indications: I have seen Ian in clinic for symptoms of RIGHT knee arthritis, confirmed with radiographic findings. He has exhausted nonoperative methods and was having significant limitations in daily function and desired better function and less pain. I discussed the technical details of a knee replacement. I explained the risks of the procedure to include, but not limited to, bleeding, infection, pain, stiffness, fracture, damage to nerves and vessels, damage to muscles and tendons, loosening, need for repeat procedure, blood clot and cardiopulmonary demise. Despite these risks, Ian elected to proceed. Findings: There was significant signs of arthritis throughout the knee. Procedure Description: Ian was greeted in the preoperative holding area where the correct side was identified and marked. The consent was reviewed with the patient and signed. The history and physical was updated. All questions were answered. Preoperative mediacations were administered: Acetaminophen 1000mg, Celebrex 400mg, and Gabapentin 300mg. An adductor canal block was then administered by the anesthesia team in the DSU. He was taken back to the operating room. A spinal anesthestic was then administered. The patient was placed into the supine position on the operating room table. Posts were placed for positioning during the procedure. All bony prominences were well padded. Prophylactic antibiotics in the form of Cefazolin were administered. 1g of Tranxemic Acid was given intravenously within 30 minutes of incision. The right leg was then prepped with Chloraprep and draped in a standard fashion with impervious stockinette. A second prep with Chloraprep was performed prior to application of Iodine impregnated skin protection. A timeout to confirm correct identity, side and site, procedure, allergies, anesthesia, and medical concerns was performed. With the knee in some flexion, a midline incision was made overlying the knee. Full thickness skin flaps were raised once the extensor mechanism was encountered. These were raised medially and laterally. Any bleeding was controlled with electrocautery. Once the extensor mechanism was fully exposed, a medial parapatellar arthrotomy was performed in a flexed position. All bleeding from the arthrotomy and the geniculate arteries was coagulated. A medial subperiosteal peel was performed with electrocautery to the midcoronal plane. The fat pad was removed while keeping the patellar tendon protected. The anterior distal femur synovium was removed for later visualization. The ACL and PCL were resected and the anterior horn of the lateral meniscus was transected. The knee was then flexed with the patella everted. A single starting pin was then placed 1cm anterior to the PCL insertion and the notch in the direction of the femoral head. The OrthoAlign device was applied over the pin. It was oriented to be in line with the epicondylar axis and the trochlear groove. It was then pinned into place. The navigation computer was then turned on and calibrated. The distal femur cut was set at 0 degrees varus/valgus and 3.5 degrees flexion. The distal femur cutting guide then was positioned for a 9mm cut. The distal femur was cut with an oscillating saw while protecting the soft tissues. The tibia was then addressed. The OrthoAlign device was placed over the tibial tubercle and medial tibia and secured into position. Once again, OrthoAlign was calibrated and then set for a 1 degree varus cut and 5.5 degrees of posterior slope. With this locked into position, the cut thickness stylus was used to assess cut thickness. The posterolateral side, most involved side, was set for a 4mm cut. This was then held in position and pinned into place with 2 additional pins and a cross pin for stability. The medial and lateral collateral ligaments were protected and the cut was performed. With this completed, it was assessed and noted to be of appropriate dimensions. The guide and OrthoAlign was removed. A spacer block was inserted and the knee was brought into extension to ensure enough space was present. . The Orthoalign gap balancing device was then placed in extension. This was used to ensure that the ligaments were properly balanced with up to 2 to 3 mm laxity laterally compared medially. The extension gap was measured as 21mm. The knee was then brought into 90 degrees of flexion and the ligament boiler plant operator was once again placed. Under the same amount of force the flexion gap was measured. The Attune specific jig was placed and the flexion gap was made to match the extension gap. The femur was then sized as a size 8. The 4-in-1 cutting guide was the placed. An ariana wing was used to confirm appropriate position of the anterior cut to avoid notching. This cutting guide was ensured to be flush on the cut surface and then pinned into place with headed pins. While protecting the soft tissues, quad tendon, and collateral ligaments, the anterior and posterior cuts were performed with a saw. The central two pins were removed and the posterior and anterior chamfers were cut next. The notch-cutting guide was placed. This was pinned to lateralize the femoral component as much as possible while keeping it flush on the cut surface. This was then pinned into position. A saw was used to make the notch cut. A rasp smoothed the cut surfaces. The medial and lateral menisci were removed. A trial femoral component was then inserted, impacted down to the cut surfaces, and the lug holes were drilled. A provisional trial tibial component was placed and the knee was brought through range of motion. The polyethylene was trialed until there was good flexion and extension with excellent stability to the medial and lateral collaterals. The patella was tracking without thumbs. A size 8mm polyethylene component provided the best range of motion and stability with less than 2mm gapping with medial and lateral stress and full extension without significant hyperextension. The tibial cut surface was fully exposed. The tibia was then sized as a 9. The tibia had been previously marked during trialing to correspond to the center of the tibial component to help with rotation. The trial was aligned to this merly, approximately rotated to the medial 1/3rd of the tibial tubercle. The trial was pinned into place. The tibia was prepared with a reamer and a keel punch and lug holes. The trial components were removed. The final components were opened on the back table. The periosteal and capsular tissues, especially posteriorly, around the knee were then systematically injected with a periarticular cocktail consisting of 246mg of Ropivacaine, 0.5mg of Epinephrine, 0.08mg of Clonidine, and 30mg of Ketorolac, diluted to 100cc. Then, the knee components were placed. Starting with the tibial component, the tibia was subluxed anteriorly and the lug holes of the component were lined up. The tibia was then impacted with an impactor and mallet until the tibial component was in contact with the tibia. Then, the femoral component was inserted. The lug holes were aligned and the component was impacted into position. The final polyethylene component was inserted. The knee was irrigated with Surgiphor Betadine solution. This was allowed to sit in the knee for 3 minutes and then it was thoroughly irrigated out with saline. The knee was then taken through range of motion. The patella was tracking with a no-thumbs technique. A complete synovectomy of the patella was performed. Any prominence to the lateral facet was resected with a rongeur. The capsule was then reapproximated with a No. 1 Vicryl at multiple locations. The capsule was finally closed with a No. 2 Stratafix, barbed suture. Deep tissues were then reapproximated with 0 Vicryl and 2-0 Vicryl. The skin was closed with a running 3-0 Monocryl in a subcuticular fashion. This was reinforced with skin glue. A Mepilex silver dressing was applied along with a [id number] GAMA wrap. A CryoCuff was applied. Ian was transferred to the hospital bed without difficulty an suffering no apparent complication. Ian has a good prognosis. Physical therapy will start today and without restrictions, weight-bearing as tolerated. Aspirin 81mg BID will be used for DVT prophylaxis. Date of Procedure: 12/02/24
[2024-12-02] MEDS: fentaNYL 100 MCG/2 ML VIAL IVP ×2 (14:07→14:14)
--- NOTE | 2024-12-02 14:31 | W.ANESPOSTOP ---
Postoperative Evaluation Date, Time and Location Date Performed: 12/02/24 Time Performed: 14:32 Patient Location: Day Surgery Unit Vital Signs Most Recent Imported Vital Signs: Most Recent Vital Signs Temp Pulse Resp BP Pulse Ox 36.5 C 61 15 152/90 H 94 12/02/24 14:20 12/02/24 14:21 12/02/24 14:21 12/02/24 14:20 12/02/24 14:21 Pain Score Most Recent Pain Score: Most Recent Pain Score Pain Level 4 12/02/24 14:17 Assessment Mental Status: Awake (Alert & Oriented to Patient Baseline) Airway and Respiratory Function: Patent airway with normal (patient baseline) respiratory exam Cardiovascular Function: Hemodynamically Stable Hydration Status: Adequately Hydrated Nausea & Vomiting: No Nausea or Vomiting Pain: Pain is tolerable per patient Peripheral Nerve Block: Patient did not receive a nerve block
--- NOTE | 2024-12-02 15:34 | IN_ITS ---
PT Notes Visit Reasons: R TKR Physical Therapy Day Surgery Initial Evaluation Date: 12/02/2024 Referring Doctor: KAMINI Florian PT Orders: PT CONSULT: S/P Ortho Surgery Precautions: WBAT on the R LE with AD. Patient Profile/Admitting Diagnosis: Patient with bilateral knee osteoarthritis and is S/P R total knee arthroplasty on postoperative day 0. PMHX: Medical History Pain in both lower extremities Flexeril + Diclofenac; declines work-up Cardiac murmur (~04/2022) Declines work-up; 2008 ECHO aortic regurgDiverticulosis of sigmoid colon (~2015) Seen on colonoscopy Eczema COVID-19 determined by clinical diagnostic criteria (~02/2021) Actinic keratosis of multiple sites of head and neck Right sided sciatica Environmental allergies Allergic rhinitis Disorder characterized by back pain chronic diffuse; w/ right sciatica Palpitations (06/13/15) Tobacco use 20 pack year history of smoking, quit 1979' Ventricular arrhythmia Neg echo, Neg ETT, Holter 220 PVC's unifocal/hr Oral lichen planus (~02/2018) Asthma Low back pain Surgical History Colonoscopy - IV Sedation (02/22/16) Dr mccann, normal, no repeat Social History/Home Situation: Lives with in a private home with 2 steps to enter with rail on B sides. Equipment Owned/DME: Bilateral axillary crutches Subjective: Denied headache, chest pain, and lightheadedness throughout session. Reported minimal soreness in back of knee while walking that resolved with rest. Objective: General Observation: Resting in bed. GAMA wraps to R LE. Cryocuff to R knee. Nurse Dina in room prepping patient up for PT evalaution. Mental Status: A and O x 4 Pain: 6-7/10 in the R knee that minimally affected mobility performance ROM: Right Lower Extremity: Hip flexion WFL. Hip abduction WFL. Knee flexion WFL. Ankle dorsiflexion WFL. Ankle plantarflexion WFL. Left Lower Extremity: Hip flexion WFL. Hip abduction WFL. Knee flexion WFL. Ankle dorsiflexion WFL. Ankle plantarflexion WFL. Strength: Right Lower Extremity: Hip flexors 5/5. Hip abductors 5/5. Knee flexors 5/5. Knee extensors 5/5. Ankle dorsiflexors 5/5. Ankle plantarflexors 5/5. Left Lower Extremity:Hip flexors 5/5. Hip abductors 5/5. Knee flexors 5/5. Knee extensors 5/5. Ankle dorsiflexors 5/5. Ankle plantarflexors 5/5. Sensation: Intact as to pain and light pressure in B LE Bed Mobility/Transfers: Minimal verbal cueing provided for use of B hands as needed for support, movement sequence, AD management, and posture to reduce fall risk and minimize pain report Supine to sit stand by assist Sit to stand stand by assist Stand to sit stand by assist with FWW Bed to chair stand by assist with FWW Gait: Facilitated safe and correct performance of level surface ambulation covering a distance of 150 feet using front-wheeled walker with stand by assist and minimal verbal cueing for AD management, safe gait pattern, and posture. Balance: Static Sitting: Normal Dynamic Sitting: Normal Static Standing: Fair Dynamic Standing: Fair Special Tests: Mobility Limitations Standardized Measure [facility] 6 clicks Basic Mobility Inpatient Short Form: Raw Score: 23 CMS Score: 11% deficit Informed Consent/Education: Patient was instructed in purpose of PT consult. Packet containing TKA exercise protocol has been given to patient. Education and training on initial set of exercises that can be done at home have been completed with patient. Trained patient with correct performance of exercises below to maximize motor control, joint flexibility, soft tissue extensibility of the R knee musculature: Access Code: [email or web address] URL: [email or web address] Date: 12/03/2024 Prepared by: Yamini Alfaro Exercises - Supine Quad Set - 1 x daily - 7 x weekly - 1 sets - 10 reps - 5 hold - Supine Heel Slide - 1 x daily - 7 x weekly - 1 sets - 10 reps - 5 hold - Supine Ankle Pumps - 1 x daily - 7 x weekly - 1 sets - 10 reps - 5 hold - Small Range Straight Leg Raise - 1 x daily - 7 x weekly - 1 sets - 10 reps - 5 hold - Seated March - 1 x daily - 7 x weekly - 1 sets - 10 reps - 5 hold Assessment: Patient requires the use of a front-wheeled walker for all mobility ADL performance to maximize independence and reduce fall risk. Patient presents with clinical signs and symptoms consistent with current/admitting diagnoses that have resulted to mobility limitations, gait instability, generalized weakness, and impairment of motor control as demonstrated by the following impairment level findings: 1. Decreased strength to R knee major muscle groups 2. Impaired standing balance 3. Limitation of joint range of motion in R knee Impairments are contributing to the following functional limitations: 1. Inability to safely ambulate without assistive device 2. Increase completion time for mobility ADL performance 3. Increased fall risk Patient is assessed as a 81322 moderate complexity based on the following: History: 84-year-old male with impairment level findings, functional limitations, and past medical history as indicated above Examination: Demonstrable impairment in strength, balance, and mobility level with underlying impairments and functional limitations as documented above Presentation: Evolving Decision Makin moderate complexity Goals: N/A. PT evaluation and 1-2 treatment sessions only for functional mobility tra ining using recommended AD and for HEP instruction. Plan of Care/Treatment Plan: N/A. PT evaluation and 1-2 treatment session only for functional mobility training using recommended AD and for HEP instruction. DISCHARGE RECOMMENDATIONS: Home when medically cleared by orthopedic surgeon. Recommend outpatient PT services in order to optimize functional mobility outcomes and facilitate return to independent community ambulation without an assistive device. TREATMENT CODE/TIME: 82926 x 20 minutes for 1 unit 12487 x 18 minutes for 1 unit (15:34-16:12). Thank you for the opportunity to participate in the care of this patient. Please sign an return this page within 30 days if you agree with the above POC. Thank you! Physician Signature Date [facility]
[2024-12-02] MEDS: oxyCODONE 5 MG TAB PO (16:08)
[2024-12-02] MEDS: Tranexamic Acid 650 MG TAB 1300 MG PO (16:25)
== END 2024-12-02 16:46 | disposition home or self-care (01) ==
LOC: SUR 09:39
PROVIDERS: PCP Nurse Practitioner Family; Visit Provider Student in an Organized Health Care Education/Training Program
PROC: (CPT 27447; principal; 2024-12-02 12:30)
DX: M17.11 Unilateral primary osteoarthritis, right knee (principal); G89.18 Other acute postprocedural pain
CPT/HCPCS: 20985; 27447; 64447; 97162; 97530; C1776; J0665; J0666; J0690; J1100; J2003; J2371; J2401; J2405; J2704; J3010

== ENCOUNTER 2024-12-17 09:10 | Outpatient (CLI) | payer MEDICARE, SELFPAY ==
--- NOTE | 2024-12-17 08:30 | DI.RAD_ITS ---
Exam(s) XR KNEE RT 1V XR STANDING ALIGNMENT EXAM: XR STANDING ALIGNMENT and XR knee RT 1 V CLINICAL HISTORY: 1ST POST OP S/P R TKA. TECHNIQUE: 2D digital imaging was performed. Five images were obtained. COMPARISON: CR XR STANDING ALIGNMENT from 11/16/2024 FINDINGS: BONES: There is mild joint space narrowing of the hips bilaterally. Since the prior examination, the re has been interval placement of a right total knee arthroplasty. The orthopedic hardware appears i n good position. No suspicious lucencies are seen around the hardware. In the left knee, there is m oderate narrowing and mild spurring in the lateral femoral tibial joint. The ankles are well maintai iman.There is no significant leg length discrepancy. SOFT TISSUE: Atherosclerotic calcifications are present. IMPRESSION: 1. Interval placement of a right total knee arthroplasty which appears in good position. 2. Moderate degenerative changes seen in the left knee. DATA REPOSITORY: RADIATION DOSE DELIVERED:
== END 2024-12-17 09:11 | disposition home or self-care (01) ==
LOC: DIORS 09:10
PROVIDERS: PCP Nurse Practitioner Family; Referring Provider Nurse Practitioner Family; Visit Provider Student in an Organized Health Care Education/Training Program
DX: Z96.651 Presence of right artificial knee joint (principal); Z47.1 Aftercare following joint replacement surgery
CPT/HCPCS: 99024; 73560; 77073

== ENCOUNTER 2024-12-29 11:46 | Outpatient (CLI) | payer MEDICARE, SELFPAY ==
[2024-12-29 11:49] LABS: Abs Immature Grans 0.03 10^3/uL (0.0-0.06); Absolute Basophil Count 0.07 10^3/uL (0.0-0.2); Absolute Eosinophil Count 0.93 10^3/uL (0.0-0.7); Absolute Lymphocyte Count 1.54 10^3/uL (1.2-3.4); Absolute Monocyte Count 0.69 10^3/uL (0.1-0.8); Absolute Neutrophil Count 3.98 10^3/uL (1.2-6.7); Eosinophils % 12.8 %; HCT 34.9 % (40.0-50.0); HGB 10.7 g/dL (13.5-17.5); Immature Grans % 0.4 %; Lymphocytes % 21.3 %; MCH 31.2 pg (27.0-33.0); MCHC 30.7 % (32.0-36.0); MCV 102 fL (80-95); MPV 9.9 fL (8.0-11.0); Monocytes % 9.5 %; Platelet Count 343 10^3/uL (130-400); RBC 3.43 10^6/uL (4.36-5.78); RDW 15.4 % (11.8-14.1); RDW-SD 58.2 fL; WBC 7.24 10^3/uL (4.4-10.8)
[2024-12-29 12:26] LABS: Anion Gap 7.1 mmol/L (3-11); BUN 17 mg/dL (7-18); CO2 30.9 mmol/L (21.0-32.0); CREATININE 1.9 mg/dL (0.70-1.30); Calcium 8.4 mg/dL (8.5-10.1); Chloride 103 mmol/L (98-107); Estimated GFR 33.93 (mL/min/1.73m2); Glucose 89 mg/dL (74-106); Potassium 4.6 mmol/L (3.5-5.1); Sodium 141 mmol/L (136-145)
== END 2024-12-29 11:47 | disposition home or self-care (01) ==
PROVIDERS: PCP Nurse Practitioner Family; Visit Provider Nurse Practitioner Family
DX: R60.0 Localized edema (principal)
CPT/HCPCS: 36415; 80048; 85025

== ENCOUNTER 2024-12-31 00:26 | Outpatient (CLI) | payer MEDICARE, SELFPAY ==
--- NOTE | 2024-12-31 12:50 | DI.US_ITS ---
Exam(s) US LOWER EXTREMITY VENOUS RT EXAM: US LOWER EXTREMITY VENOUS RT CLINICAL HISTORY: rule out dvt, tkr 11/2024 R63.0 EDEMA TECHNIQUE: Right lower extremity venous ultrasound performed using grayscale, color-flow, and spectral Doppler analysis. COMPARISON: No exams were available for comparison FINDINGS: The right common femoral, femoral and popliteal veins demonstrate normal compressibility, augmentation, and color Doppler. The posterior tibial and peroneal veins are patent. The saphenofemoral junction is unremarkable. There is no evidence of a Perla cyst. There is edema seen in the soft tissues of the lower extremity. IMPRESSION: No evidence of a right lower extremity DVT. DATA REPOSITORY:
== END 2024-12-31 00:46 ==
LOC: DI 00:26
PROVIDERS: PCP Nurse Practitioner Family; Visit Provider Nurse Practitioner Family
DX: R60.0 Localized edema (principal)
CPT/HCPCS: 93971

== ENCOUNTER → 2025-01-11 09:45 | Outpatient (BNVA) | payer MEDICARE, SELFPAY | PROVIDERS: PCP Nurse Practitioner Family; Referring Provider Nurse Practitioner Family; Visit Provider Physician Assistant Surgical | DX: J45.20 Mild intermittent asthma, uncomplicated (principal); J34.2 Deviated nasal septum; J32.9 Chronic sinusitis, unspecified | CPT/HCPCS: 99214 ==

== ENCOUNTER → 2025-01-14 09:08 | Outpatient (BNVA) | payer MEDICARE, SELFPAY | PROVIDERS: PCP Nurse Practitioner Family; Referring Provider Nurse Practitioner Family; Visit Provider Physician Assistant | DX: Z47.1 Aftercare following joint replacement surgery (principal); Z96.651 Presence of right artificial knee joint | CPT/HCPCS: 99024 ==

== ENCOUNTER 2025-01-19 08:23 | Day surgery (SDC) | payer MEDICARE, SELFPAY ==
[2025-01-19] VITALS (21 sets, daily range): BP systolic 112–142; BP diastolic 62–90; PULSE 75–104; RESP 10–23; TEMP 36.2–36.9; O2SAT 91–98; BMI 28.6
--- NOTE | 2025-01-19 07:29 | PDOC.DSDIS_ITS ---
Date of service: 01/19/25 Discharge Plan Disposition Patient Disposition: Home Condition: Good Discharge Details Reason For Visit: Left knee DJD Attending Provider: Maximiliano Renee Primary Care Provider: Martiat Nunes Home Meds and New Rx's Prescriptions: New celecoxib [Celebrex] 200 mg capsule 200 mg PO BID PRNQty: 60 0RF Rx Instructions: Take one tablet twice daily for pain and inflammation aspirin 81 mg tablet,delayed release (DR/EC) 81 mg PO BID 30 Days Qty: 60 0RF acetaminophen 500 mg tablet 1,000 mg PO Q8H PRN Qty: 90 0RF Rx Instructions: Take two tablets up to every 8 hours as needed for pain pantoprazole 40 mg tablet,delayed release (DR/EC) 40 mg PO DAILY Qty: 14 0RF docusate sodium [Colace] 100 mg capsule 100 mg PO BID Qty: 28 0RF oxycodone 5 mg tablet 5 mg PO Q4H PRNQty: 18 0RF Rx Instructions: Take one tablet up to every 4 hours as needed for severe postoperative pain dexamethasone 4 mg tablet 4 mg PO DAILY Qty: 2 0RF Rx Instructions: Take one tablet once daily for two days Continued folic acid 1 mg tablet 1 mg PO DAILY Qty: 90 3RF Rx Instructions: Low folic acid levothyroxine 75 mcg tablet 75 mcg PO DAILY Qty: 90 3RF sucralfate 1 gram tablet 1 g PO QID Qty: 360 3RF albuterol 90 mcg/actuation aerosol 90 mcg inhalation DAILY Patient Comments: prn gabapentin 600 mg tablet 600 mg PO TID Qty: 90 2RF sertraline 50 mg tablet 50 mg PO DAILY Qty: 90 3RF Atrovent HFA 17 mcg/actuation HFA aerosol inhaler 2 puff inhalation QID MDD 8 60 Days Qty: 12.9 4RF Patient Comments: prn Rx Instructions: use 2 puffs 4 times daily (either inhaler OR nebulizer) for cough and phlegm. mecobalamin (vitamin B12) 500 mcg tablet,chewable 500 mcg PO DAILY Qty: 90 1RF ondansetron HCl 4 mg tablet See Rx Instructions .ROUTE .COMPLEX Qty: 60 1RF Dose Instruction: TAKE ONE TABLET BY MOUTH TWICE A DAY NEEDED FOR NAUSEA/IBS Patient Comments: prn Rx Instructions: TAKE ONE TABLET BY MOUTH TWICE A DAY NEEDED FOR NAUSEA/IBS ipratropium bromide 21 mcg (0.03 %) spray,non-aerosol 2 spray intranasal TID MDD 6 Qty: 30 6RF Rx Instructions: administer 2 sprays into each nostril up to 3 times daily losartan 50 mg tablet 50 mg PO DAILY Qty: 90 1RF lorazepam 0.5 mg tablet 0.5 mg PO ONCE PRN (Reason: anxiety) Qty: 1 0RF Rx Instructions: take 1 tablet 20 min prior to MRI fluticasone propion-salmeterol [Advair HFA] 230-21 mcg/actuation HFA aerosol inhaler 2 puff inhalation BID Qty: 12 12RF Discontinued acetaminophen 500 mg tablet 1,000 mg PO TID Qty: 90 3RF Discharge Instructions Additional Instructions: Total Knee Discharge Instructions Activity: The most important activity is to walk and to work on gentle motion (both flexion and extension). You should try to take short walks a few times a day. It is important that when resting you work on keeping the knee straight. Avoid putting a pillow behind the knee as this will encourage flexion. Work on range of motion exercises as provided by Physical Therapy. - Start outpatient physical therapy within 2 weeks. - You should wear the ADIEL hose on both legs for 2 weeks. You may remove these at night. You may also use any compression sock in place of the ADIEL hose. - Utilize [employer] to review exercises, see videos on exercises and obtain basic information pertaining to your surgery and your recovery. Dressing: Remove the Dustin wrap by 2 days after your surgery and put on the ADEIL stocking given to you from the hospital. Keep the surgical dressing (underneath the DUSTIN wrap) in place for at least one week. After the first week it may be removed and replaced with light gauze and tape or nothing. The wound and dressing may get wet after 3 days but avoid soaking the dressing or otherwise it will need to be changed. Many people prefer covering the dressing with cling wrap (saran wrap) to minimize it from getting soaked. If it gets wet, just pat dry. If it starts to peel off then it will need to be changed. Medications: - You should take Tylenol and anti-inflammatory Celebrex as your primary pain control medications. If the Celebrex is too expensive or not covered, please call the office for another alternative (Advil/Ibuprofen or Naproxen/Aleve) - You have been prescribed a stronger pain medication Oxycodone for breakthrough pain, take as needed as prescribed. - You have also been prescribed a stomach acid reduction agent Pantoprozole to help reduce stomach acid and reflux. - You will be taking Aspirin 81mg twice a day for DVT prevention unless instructed otherwise. - You have also been prescribed Decadron to take to control post-operative nausea and pain. You will start this tomorrow. - If you have constipation you should take Colace (which has been prescribed) or Miralax (which is available [id number]). It takes most people 3-4 days to have a bowel movement. Follow-up: 2 weeks If you have any acute concerns or questions, please do not hesitate to contact the office at [phone]. You may contact Dr. Renee with any questions after hours through the hospital at [phone] or on his cell phone at [phone]. Referrals: Maximiliano Renee MD [ [facility] STAFF PHYSICIAN, Orthopaedic Surgical] Equipment/Supplies: Walker Activity:: Elevate Remove Dressings/Wound Care:: Do Not Remove Shower/Bathe:: Cover Diet:: As Tolerated Discharge Orders Discharge Orders: Discharge Order (Routine); Ordered 01/19/25 Ordered By: Brandy Cochran
[2025-01-19] MEDS: Lactated Ringers 1,000 ML 80 ML IV (09:11)
[2025-01-19] MEDS: Celecoxib 200 MG CAP 400 MG PO (09:16)
[2025-01-19] MEDS: Acetaminophen 500 MG TAB 1000 MG PO (09:17)
--- NOTE | 2025-01-19 09:48 | W.ANESPRE ---
General Info Date of Service Date Performed: 01/19/25 Height: 5 ft 7 in Weight: 83 kg Body Mass Index (BMI): 28.6 Surgical Procedure: Operation Date: 01/19/25 10:55 Proposed Procedure Side Surgeon p Knee Total Arthroplasty w/OrthAlign Left Maximiliano Renee MD Meds Allergies and Home Medications Allergies Allergy/AdvReac Type Severity Reaction Status Date / Time azithromycin AdvReac Severe Nausea Verified 01/18/25 09:33 diclofenac AdvReac Intermediate gi upset Verified 01/18/25 09:33 alcohol AdvReac Unknown hx of etoh Verified 01/18/25 09:33 abuse Home Medication ?Medication ?Instructions ?Recorded Atrovent HFA 17 mcg/actuation 2 puff inhalation QID cough 2 04/06/24 aerosol inhaler (ipratropium months #12.9 grams bromide) folic acid 1 mg tablet 1 mg PO DAILY #90 tabs 04/22/24 levothyroxine 75 mcg tablet 75 mcg PO DAILY #90 tab-caps 04/22/24 sucralfate 1 gram tablet 1 g PO QID #360 tabs 04/22/24 albuterol 90 mcg/actuation aerosol 90 mcg inhalation DAILY 07/13/24 inhaler mecobalamin (vitamin B12) 500 mcg 500 mcg PO DAILY #90 tabs 07/29/24 chewable tablet ipratropium bromide 21 mcg (0.03 2 spray intranasal TID sinus 09/16/24 %) nasal spray congestion #30 mL lorazepam 0.5 mg tablet 0.5 mg PO ONCE PRN anxiety #1 tab 10/13/24 losartan 50 mg tablet 50 mg PO DAILY #90 tabs 10/13/24 fluticasone propionate 230 2 puff inhalation BID #12 grams 11/26/24 mcg-salmeterol 21 mcg/actuation HFA inhaler (Advair HFA) ondansetron HCl 4 mg tablet See Rx Instructions .Route 12/29/24 .COMPLEX #60 tabs gabapentin 600 mg tablet 600 mg PO TID #90 tabs 01/12/25 sertraline 50 mg tablet 50 mg PO DAILY anxiety #90 tabs 01/12/25 acetaminophen 500 mg tablet 1,000 mg (2 x 500 mg) PO Q8H PRN 01/19/25 pain #90 tabs aspirin 81 mg tablet,delayed 81 mg PO BID 30 days #60 tabs 01/19/25 release celecoxib 200 mg capsule (Celebrex) 200 mg PO BID PRN #60 caps 01/19/25 dexamethasone 4 mg tablet 4 mg PO DAILY #2 tabs 01/19/25 docusate sodium 100 mg capsule 100 mg PO BID #28 caps 01/19/25 (Colace) oxycodone 5 mg tablet 5 mg PO Q4H PRN #18 tabs 01/19/25 pantoprazole 40 mg tablet,delayed 40 mg PO DAILY #14 tabs 01/19/25 release Current Visit Medications: Current Medications Generic Name Dose Route Start Last Admin Trade Name Freq PRN Reason Stop Dose Admin Acetaminophen 1,000 mg 01/19/25 06:00 01/19/25 09:17 Acetaminophen 500 Mg Tab PO 01/19/25 23:59 1,000 mg PREOP VIRAJ Administration Celecoxib 400 mg 01/19/25 06:00 01/19/25 09:16 Celecoxib 200 Mg Cap PO 01/19/25 23:59 400 mg PREOP VIRAJ Administration Gabapentin 300 mg 01/19/25 06:00 Gabapentin 300 Mg Cap PO 01/19/25 23:59 PREOP VIRAJ Hydromorphone HCl 0.5 mg 01/19/25 07:24 Hydromorphone 2 Mg/Ml Syr IVP 02/18/25 07:23 Q2H PRN PRN Ringer's Solution 1,000 mls @ 80 mls/hr 01/19/25 06:00 01/19/25 09:11 IV 01/19/25 23:59 80 mls/hr INFUSION VIRAJ Administration Cefazolin Sodium/Dextrose 2 gm in 50 mls @ 100 mls/hr 01/19/25 06:00 Ancef Duplex IVPB 01/19/25 23:59 PREOP VIRAJ Tranexamic Acid/Sodium Chloride 1,000 mg in 100 mls @ 600 mls/hr 01/19/25 06:00 IVPB 01/19/25 23:59 PREOP VIRAJ Cefazolin Sodium/Dextrose 1 gm in 50 mls @ 100 mls/hr 01/19/25 08:00 Ancef Duplex IVPB 01/20/25 00:29 Q8H VIRAJ IV Miscellaneous Supplies 1 each 01/19/25 06:00 Iv Access IV 01/19/25 23:59 DIRECTED VIRAJ Oxycodone HCl 0 mg 01/19/25 07:24 Oxycodone 5 Mg Tab PO 02/18/25 07:23 Q3H PRN PRN Pain Sodium Chloride 0 ml 01/19/25 06:00 Normal Saline Flush 10 Ml Syr IV 01/19/25 23:59 PRN PRN Sodium Chloride 0 ml 01/19/25 06:00 Normal Saline 10 Ml Vial IJ 01/19/25 23:59 DIRECTED PRN Sterile Water 0 ml 01/19/25 06:00 Water,Injection,Sterile 10 Ml Vial IJ 01/19/25 23:59 DIRECTED PRN Tranexamic Acid 1,300 mg 01/19/25 07:24 Tranexamic Acid 650 Mg Tab PO 02/18/25 07:23 ONCE PRN postoperative PFSH Active Problems Active Problems: Problem Status Onset Code History of total left knee replacement Acute 01/19/25 Z96.652 Depression Chronic F32.A Leg edema Acute R60.0 History of total right knee replacement Acute 12/02/24 Z96.651 History of depression Acute Z86.59 Sacroiliac joint dysfunction of both sides Acute M53.3 Cervical radiculitis Acute M54.12 Elevated blood pressure reading without diagnosis of hypertension Acute R03.0 Renal injury Acute S37.009A Cervicalgia Acute M54.2 Mechanical low back pain Acute M54.59 Lumbar spondylosis Acute M47.816 Right lumbar radiculitis Acute M54.16 Numbness of right lower extremity Acute R20.0 Leg pain, right Acute M79.604 Hypotension Acute I95.9 Lung nodule seen on imaging study Acute ~03/2024 R91.1 Nasal obstruction Acute J34.89 Deviated nasal septum Acute J34.2 Chronic sinusitis Chronic J32.9 Ex-smoker for more than 1 year Acute Z87.891 History of chronic cough Acute Z87.898 Folate deficiency Chronic ~01/2021 E53.8 Hypertension, essential Chronic ~12/19/20 I10 Anemia Chronic D64.9 Elevated MCV Acute R71.8 Anxiety Chronic F41.9 Asthma Acute J45.909 Benign prostatic hyperplasia Chronic N40.0 Chronic low back pain Chronic 06/10/13 M54.5, G89.29 Gastroesophageal reflux disease with esophagitis Chronic 01/25/15 K21.0 Hyperlipidemia, unspecified Chronic 06/13/15 E78.5 IBS (irritable bowel syndrome) Chronic K58.9 Hypothyroidism Chronic E03.9 Medical History Medical History Pain in both lower extremities Flexeril + Diclofenac; declines work-up Cardiac murmur (~04/2022) Declines work-up; 2008 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 Diverticulosis of sigmoid colon (~2015) Seen on colonoscopy Eczema COVID-19 determined by clinical diagnostic criteria (~02/2021) Actinic keratosis of multiple sites of head and neck Right sided sciatica Environmental allergies Allergic rhinitis Disorder characterized by back pain chronic diffuse; w/ right sciatica Palpitations (06/13/15) Tobacco use 20 pack year history of smoking, quit 1979' Ventricular arrhythmia Neg echo, Neg ETT, Holter 220 PVC's unifocal/hr Oral lichen planus (~02/2018) Asthma Low back pain Surgical History Surgical History Colonoscopy - IV Sedation (02/22/16) Dr mccann, normal, no repeat Tobacco Smoking/Tobacco Use Status: Former Tobacco Use Passive smoking exposure: No Alcohol Alcohol Intake: former Substance Use Substance use: Current Sobriety Substance use type: does not use Details: H/O drug addiction back in his late 30s-40s. Vital Signs and Lab Results Vital Signs Most Recent Vital Signs in EMR: Most Recent Vital Signs Temp Pulse Resp BP Pulse Ox 36.2 C L 76 16 123/82 96 01/19/25 08:44 01/19/25 08:44 01/19/25 08:44 01/19/25 08:44 01/19/25 08:44 Lab Results Complete Blood Count: WBC, (4.4-10.8) 7.24 10^3/uL 12/29/24, 11:35 RBC, (4.36-5.78) 3.43 10^6/uL L 12/29/24, 11:35 Hgb, (13.5-17.5) 10.7 g/dL L 12/29/24, 11:35 Hct, (40.0-50.0) 34.9 % L 12/29/24, 11:35 Plt Count, (130-400) 343 10^3/uL 12/29/24, 11:35 Complete Metabolic Panel: Sodium, (136-145) 141 mmol/L 12/29/24, 11:35 Potassium, (3.5-5.1) 4.6 mmol/L 12/29/24, 11:35 Chloride, (98-107) 103 mmol/L 12/29/24, 11:35 Carbon Dioxide, (21.0-32.0) 30.9 mmol/L 12/29/24, 11:35 BUN, (7-18) 17 mg/dL 12/29/24, 11:35 Creatinine, (0.70-1.30) 1.9 mg/dL H 12/29/24, 11:35 Est GFR (CKD-EPI 2020), (mL/min/1.73m2) 33.93 12/29/24, 11:35 Calcium, (8.5-10.1) 8.4 mg/dL L 12/29/24, 11:35 Glucose, (74-106) 89 mg/dL 12/29/24, 11:35 Imaging and Studies Imaging and Studies Study information below may be from another EMR and interpreted by another provider. Please see original notes in EMR for more complete details. EKG Summary: 06/01/24: Exam: Resting ECG Reason for Exam: chest pain Patient Location: E HR:84 bpm ECG Measurements Heart Rate 84 AXIS MS 181 P -8 QRSd 82 QRS -32 QT 378 T46 QTc 447 Conclusion Sinus rhythm...normal P axis, V-rate 60- [address] segment or T wave abnormalities to suggest occlusive [place] I have reviewed and I agree with the emergency room physician's ECG interpretation. Echocardiogram Summary: 11/23/24: Conclusion Normal left thickness and chamber size. Ejection fraction is 60 to 65%. Wall motion is normal Normal right ventricular size and function Both atria are normal in size Aortic valve is calcified and trileaflet. There is trace aortic regurgitation. There is mild aortic stenosis. Peak gradient is 27, mean 15 mmHg Mitral annular calcification. Mild mitral regurgitation Mild tricuspid regurgitation. Estimated right ventricular systolic pressure is 29 mmHg Ascending aorta measures 4.24 cm Pulmonary Function Summary: 06/27/24: Pulmonary Function Test Result Indications: Cough Interpretation Spirometry: There was a 30% decrease in FEV1 with administration of 0.5mg/mL Clinical Correlation therefore is recommended Anesthesia Assessment and Plan Anesthesia History Personal History: No History of Anesthesia Complications Family History: No Family History of Anesthesia Complications Exercise Tolerance Exercise Tolerance: Metabolic Equivalents>4 Pertinent Negatives Pertinent Negatives: No Symptoms of GERD, No Major Cardiovascular Symptoms or Complaints, No Major Pulmonary Symptoms or Complaints and No History of CVA/TIA Cardiac & Pulmonary Exam Cardiac Exam: Known Innocent Murmur Pulmonary Exam: Clear Bilateral Breath Sounds Implantable Cardiac Device Does patient have a Pacemaker or an ICD?: No Airway Exam Known Difficult Airway: No Mallampati Class: 4 Mouth Opening: Narrow (< 3cm) Thyromental Distance: Greater than 3 cm Neck Range of Motion: Full ROM Neck Circumference: Normal Teeth Condition: Generalized Poor Dentition ASA Classification ASA Score: ASA 2 Emergency Case?: No NPO Status NPO Status: NPO Clears >2 hours, Solids >8 hours Anesthesia Plan Resuscitation Status: Full Code Anesthesia Technique: Spinal Anesthesia Airway Planned: Natural Airway Pain Management: Surgeon and patient request nerve block Monitors Used: Standard Monitors
--- NOTE | 2025-01-19 10:22 | W.ANESNERVE ---
Nerve Block Single Injection Procedure Date and Time Date Performed: 01/19/25 Procedure Start: 09:59 Location Where Procedure Performed Procedure Location: Day Surgery Unit Reason Performed: Postoperative Analgesia Requesting Provider: Maximiliano Renee Timeout Performed Timeout Performed: Yes Monitoring Used ECG, Blood Pressure, SpO2, ETCO2 and See EMR for corresponding vital signs Sterility Sterility: Hand Hygiene, Surgical Cap, Surgical Mask, Sterile Gloves and Chlorhexidine Sedation Given During Procedure Sedation Given (Indicate Dose Given): No Sedation given Patient Mental Status Patient Mental Status: Awake Nerve Block 1st Nerve Block: Laterality: Left Block Type: Adductor Canal Ultrasound Image Saved?: Yes Needle / Catheter Used: 100mm SonoPlex II Local Anesthetic Bolus (Indicate Dose Given): Lidocaine used for local infiltration of skin, Injected in 3-5ml increments after negative blood aspiration, Bupivacaine 0.25% Dose:: 10mL and Exparel Dose:: 10mL Additives (Indicate Dose Given): None Ultrasound: Sterile probe cover and gel used Nerve Stimulator: Supplement to Ultrasound use and No twitch or parasthesia noted < 0.5 mA Paresthesia: None Procedure Tolerated: No Complications and Patient tolerated well Procedure Outcome: Successful Performed By: Jesika Martníez Supervised By: Cassandra Morales
[2025-01-19] MEDS: ceFAZolin 2 GM/50 ML BAG IVPB (10:44)
[2025-01-19] MEDS: TRANEXAMIC ACID/SOD. CHL. 1,000 MG/100 ML BAG 600 MG IVPB (11:06)
--- NOTE | 2025-01-19 11:06 | ROE_ITS ---
Operative Note Operative Note PRE-OP DIAGNOSIS: Left Knee Osteoarthritis POST-OP DIAGNOSIS: same PROCEDURE: Left Total Knee Replacement with Intraoperative Navigation SURGEON: Maximiliano Renee COMMERCIAL FIELD INSPECTOR: Brandy Cochran ANESTHESIA TYPE: Spinal Refer to Anesthesia Record ESTIMATED BLOOD LOSS: 100 PATHOLOGY: none sent TOURNIQUET TIME: 0 COMPLICATIONS: None Patient was transported to: PACU Patient's condition: stable Implants: 1. Depuy Attune Cementless Cruciate Retaining Femoral Component, Size 8 2. Depuy Attune Cementless Fixed Bearing Tibial Component, Size 9 3. Depuy Attune 8x8mm CR/FB Poly Indications: I have seen Ian in clinic for symptoms of knee arthritis, confirmed with radiographic findings. He has exhausted nonoperative methods and was having significant limitations in daily function and desired better function and less pain. I discussed the technical details of a knee replacement. I explained the risks of the procedure to include, but not limited to, bleeding, infection, pain, stiffness, fracture, damage to nerves and vessels, damage to muscles and tendons, loosening, need for repeat procedure, blood clot and cardiopulmonary demise. He had successful right knee replacement. Despite these risks, Ian elected to proceed. Findings: There was significant signs of arthritis throughout the knee, mostly involving the lateral compartment. Procedure Description: Ina was greeted in the preoperative holding area where the correct side was identified and marked. The consent was reviewed with the patient and signed. The history and physical was updated. All questions were answered. Preo perative mediacations were administered: Acetaminophen 1000mg, Celebrex 400mg, and Gabapentin 300mg. An adductor canal block was then administered by the anesthesia team in the DSU. Ian was taken back to the operating room. A spinal anesthestic was then attempted but unsuccessful and thus he was converted to a general anesthetic. The patient was placed into the supine position on the operating room table. Posts were placed for positioning during the procedure. All bony prominences were well padded. Prophylactic antibiotics in the form of Cefazolin were administered. 1g of Tranxemic Acid was given intravenously within 30 minutes of incision. The left leg was then prepped with Chloraprep and draped in a standard fashion with impervious stockinette. A second prep with Chloraprep was performed prior to application of Iodine impregnated skin protection. A timeout to confirm correct identity, side and site, procedure, allergies, anesthesia, and medical concerns was performed. With the knee in some flexion, a midline incision was made overlying the knee. Full thickness skin flaps were raised once the extensor mechanism was encountered. These were raised medially and laterally. Any bleeding was controlled with electrocautery. Once the extensor mechanism was fully exposed, a medial parapatellar arthrotomy was performed in a flexed position. All bleeding from the arthrotomy and the geniculate arteries was coagulated. A medial subperiosteal peel was performed with electrocautery to the midcoronal plane. The fat pad was removed while keeping the patellar tendon protected. The anterior distal femur synovium was removed for later visualization. The ACL and PCL were resected and the anterior horn of the lateral meniscus was transected. The knee was then flexed with the patella everted. A single starting pin was then placed 1cm anterior to the PCL insertion and the notch in the direction of the femoral head. The OrthoAlign device was applied over the pin. It was oriented to be in line with the epicondylar axis and the trochlear groove. It was then pinned into place. The navigation computer was then turned on and calibrated. The distal femur cut was set at 0 degrees varus and 3.5 degrees flexion. The distal femur cutting guide then was positioned for a 9mm cut. The distal femur was cut with an oscillating saw while protecting the soft tissues. The tibia was then addressed. The OrthoAlign device was placed over the tibial tubercle and medial tibia and secured into position. Once again, OrthoAlign was calibrated and then set for a 1 degree varus cut and 5.5 degrees of posterior slope. With this locked into position, the cut thickness stylus was used to assess cut thickness. The lateral side, most involved side, was set for a 6mm cut, which corresponded to about 8mm medially. This was then held in position and pinned into place with 2 additional pins and a cross pin for stability. The medial and lateral collateral ligaments were protected and the cut was performed. With this completed, it was assessed and noted to be of appropriate dimensions. The guide and OrthoAlign was removed. A spacer block was inserted and the knee was brought into extension to ensure enough space was present. . The Orthoalign gap balancing device was then placed in extension. This was used to ensure that the ligaments were properly balanced with up to 2 to 3 mm laxity laterally compared medially. The extension gap was measured as 20mm. The knee was then brought into 90 degrees of flexion and the ligament supervisor bakery sanitation was once again placed. Under the same amount of force the flexion gap was measured. The Attune specific jig was placed and the flexion gap was made to match the extension gap. The femur was then sized as a size 8. The 4-in-1 cutting guide was the placed. An ariana wing was used to confirm appropriate position of the anterior cut to avoid notching. This cutting guide was ensured to be flush on the cut surface and then pinned into place with headed pins. While protecting the soft tissues, quad tendon, and collateral ligaments, the anterior and posterior cuts were performed with a saw. The central two pins were removed and the posterior and anterior chamfers were cut next. The notch-cutting guide was placed. This was pinned to lateralize the femoral component as much as possible while keeping it flush on the cut surface. This was then pinned into position. A saw was used to make the notch cut. A rasp smoothed the cut surfaces. The medial and lateral menisci were removed. A trial femoral component was then inserted, impacted down to the cut surfaces, and the lug holes were drilled. A provisional trial tibial component was placed and the knee was brought through range of motion. There was noted to be excellent extension and flexion. There was no significant instability. The patella was tracking without thumbs. A size 8mm polyethylene component provided the best range of motion and stability with less than 2mm gapping with medial and lateral stress and full extension without significant hyperextension. The tibial cut surface was fully exposed. The tibia was then sized as a 9. The tibia had been previously marked during trialing to correspond to the center of the tibial component to help with rotation. The trial was aligned to this merly, approximately rotated to the medial 1/3rd of the tibial tubercle. The trial was pinned into place. The tibia was prepared with a reamer and a keel punch and lug holes. The trial components were removed. The final components were opened on the back table. The periosteal and capsular tissues, especially posteriorly, around the knee were then systematically injected with a periarticular cocktail consisting of 246mg of Ropivacaine, 0.5mg of Epinephrine, 0.08mg of Clonidine, and 30mg of Ketorolac, diluted to 100cc. Then, the knee components were placed. Starting with the tibial component, the tibia was subluxed anteriorly and the lug holes of the component were lined up. The tibia was then impacted with an impactor and mallet until the tibial component was in contact with the tibia. Then, the femoral component was inserted. The lug holes were aligned and the component was impacted into position. The final polyethylene component was inserted. The knee was irrigated with Surgiphor Betadine solution. This was allowed to sit in the knee for 3 minutes and then it was thoroughly irrigated out with saline. The knee was then taken through range of motion. The patella was tracking with a no-thumbs technique. A complete synovectomy of the patella was performed. Any prominence to the lateral facet was resected with a rongeur. The capsule was then reapproximated with a No. 1 Vicryl at multiple locations. The capsule was finally closed with a No. 2 Stratafix, barbed suture. Deep tissues were then reapproximated with 0 Vicryl and 2-0 Vicryl. The skin was closed with a running 3-0 Monocryl in a subcuticular fashion. This was reinforced with skin glue. A Mepilex silver dressing was applied along with a [id number] GAMA wrap. A CryoCuff was applied. Ian was transferred to the hospital bed without difficulty an suffering no apparent complication. He has a good prognosis. Physical therapy will start today and without restrictions, weight-bearing as tolerated. Aspirin 81mg BID will be used for DVT prophylaxis. Date of Procedure: 01/19/25
[2025-01-19] MEDS: fentaNYL 100 MCG/2 ML VIAL IVP (13:06)
--- NOTE | 2025-01-19 13:18 | W.ANESPOSTOP ---
Postoperative Evaluation Date, Time and Location Date Performed: 01/19/25 Time Performed: 13:18 Patient Location: PACU Vital Signs Most Recent Imported Vital Signs: Most Recent Vital Signs Temp Pulse Resp BP Pulse Ox 36.9 C 81 20 122/77 91 L 01/19/25 13:10 01/19/25 13:11 01/19/25 13:11 01/19/25 13:11 01/19/25 13:11 Pain Score Most Recent Pain Score: Most Recent Pain Score Pain Level 4 01/19/25 13:10 Assessment Mental Status: Awake (Alert & Oriented to Patient Baseline) Airway and Respiratory Function: Patent airway with normal (patient baseline) respiratory exam Cardiovascular Function: Hemodynamically Stable Hydration Status: Adequately Hydrated Nausea & Vomiting: No Nausea or Vomiting Pain: Pain is tolerable per patient Peripheral Nerve Block: Regional nerve block not resolved at time of post operative discharge
[2025-01-19] MEDS: oxyCODONE 5 MG TAB PO (14:03)
--- NOTE | 2025-01-19 15:09 | IN_ITS ---
PT Notes Visit Reasons: Left knee DJD Physical Therapy Day Surgery Initial Evaluation Date: 01/19/2025 Referring Doctor: Brandy Cochran NP/Dr. Renee PT Orders: PT CONSULT: Status post Ortho surgery Precautions: WBAT left LE Patient Profile/Admitting Diagnosis: Ian is AN 84-year-old male presenting status post elective left TKA under nerve block by Dr. Renee on 01/19/2025. postop uncomplicated. PMHX: History of total right knee replacement (Acute 12/02/24) History of depression (Acute) Sacroiliac joint dysfunction of both sides (Acute) Cervical radiculitis (Acute) Elevated blood pressure reading without diagnosis of hypertension (Acute) Renal injury (Acute) Cr 1.4 x3, with improvement, but sign jumps..Cervicalgia (Acute) Mechanical low back pain (Acute) Lumbar spondylosis (Acute) Right lumbar radiculitis (Acute) Osteoarthritis of both knees (Acute) Steroid injection bilaterally: 06/04/2024Numbness of right lower extremity (Acute) Knee vs Lower back? (PT considering radiculopathy)Leg pain, right (Acute) Hypotension (Acute) Lung nodule seen on imaging study (Acute ~03/2024) Nasal obstruction (Acute) Deviated nasal septum (Acute) Chronic sinusitis (Chronic) Ex-smoker for more than 1 year (Acute) History of chronic cough (Acute) Folate deficiency (Chronic ~01/2021) Hypertension, essential (Chronic ~12/19/20) Dx'ed 12/19/2020-->Losartan; trialed off but BPs went up; Goal BP ~140/90 or lowerAnemia (Chronic) Iron? B12? CKD?Elevated MCV (Acute) Anxiety (Chronic) L-T Paxil (discont 2022)Asthma (Acute) Benign prostatic hyperplasia (Chronic) DoxazosinChronic low back pain (Chronic 06/10/13) With R sided sciatica; RX GabapentinGastroesophageal reflux disease with esophagitis (Chronic 01/25/15) EGD w/ BX 03/14/09 and 07/31/10 w/ BX 2018--declines further EGD Hyperlipidemia, unspecified (Chronic 06/13/15) IBS (irritable bowel syndrome) (Chronic)Ondansetron PRN Hypothyroidism (Chronic) Medical History Pain in both lower extremities Flexeril + Diclofenac; declines work-upCardiac murmur (~04/2022) Declines work-up; 2008 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Diverticulosis of sigmoid colon (~2015)Seen on colonoscopy Eczema COVID-19 determined by clinical diagnostic criteria (~02/2021) Actinic keratosis of multiple sites of head and neck Right sided sciatica Environmental allergies Allergic rhinitis Disorder characterized by back pain chronic diffuse; w/ right sciatica Palpitations (06/13/15) Tobacco use 20 pack year history of smoking, quit 1979' Ventricular arrhythmia Neg echo, Neg ETT, Holter 220 PVC's unifocal/hr Oral lichen planus (~02/2018) Asthma Low back pain Surgical History Colonoscopy - IV Sedation (02/22/16) Dr mccann, normal, no repeat Social History/Home Situation: Patient resides in single-family home with one- step to enter with his . Patient independent ambulation recently utilizing single-point cane status post right TKA in November 2024. Patient independent ADLs. Equipment Owned/DME: Multiple canes and walking sticks/poles Subjective: Patient reports he has been attending outpatient PT for his right knee and will return to [facility] physical therapy in 2 weeks. Patient reports a walker does not fit within his home therefore he uses 1?2 canes for ambulation instead of the walker. He states he did this after his last surgery in November as well. Objective: [] General Observation: Younger than stated age male semireclined on stretcher Cryo/Cuff to left knee. present in room. Mental Status: Alert and oriented x 4. Cooperative, able to follow instructions . Hard of hearing. Patient agreeable to participate Pain: 6/10 left knee Pt received pain meds 30 mins prior ROM: [] Right Lower Extremity: knee 0-110 degrees Left Lower Extremity:knee 0-96 degrees Strength: [] Right Lower Extremity: Hip flexion: 4 /5; hip abduction: 3+ /5; hip extension: 3 /5; knee extension:4 /5; knee flexion: 3/5 ankle DF: 4/5 ; ankle PF: 4 /5 Left Lower Extremity:Hip flexion: 3/5; hip abduction: 3/5; hip extension: 3- /5; knee extension: 3 /5; knee flexion: 3- /5 ankle DF: 3/5 ; ankle PF: 3 /5 Sensation: Intact Bed Mobility/Transfers: [] Supine to sit independent Sit to stand supervision Stand to sit supervision Bed to chair : supervision with FWW or canes Gait: Ambulated supervision with FWW 150 feet reciprocal pattern slight forward flexed trunk requiring cues for upright posture - Ambulated with cane contact-guard assist 35 feet cues for quad activation at mid stance left lower extremity Stairs: 5 steps with cane and rail contact-guard assist and cues for sequencing Balance: [] Static Sitting: [] Normal Dynamic Sitting: Good Static Standing: Good Dynamic Standing: Fair plus Special Tests: [] Mobility Limitations Standardized Measure [] [facility] AM-PAC 6 clicks Basic Mobility Inpatient Short Form: [] Raw Score: 23 CMS Score: 11.20% Informed Consent/Education: Patient instructed in purpose of PT consult. Packet containing TKA exercise protocol has been given to patient. Education and training on initial set of 10 reps of exercises that can be done at home have been completed with patient. Assessment: Patient is an 84-year-old male who presents with clinical signs and symptoms consistent with current/admitting diagnoses that have resulted to mobility limitations, gait instability, generalized weakness, and impairment of motor control as demonstrated by the following impairment level findings: 1. Decreased strength to left knee major muscle groups 2. Impaired standing balance 3. Limitation of joint range of motion in left knee 4. Pain left knee Impairments are contributing to the following functional limitations: 1. Inability to safely ambulate without assistive device 2. Increase completion time for mobility ADL performance 3. Increased fall risk 4. Difficulty performing stairs without assistance Patient is assessed as a moderate complexity based on the following: History: 84-year-old male with impairment level findings, functional limitations, and past medical history as indicated above Examination: Demonstrable impairment in strength, balance, and mobility level with underlying impairments and functional limitations as documented above Presentation: Evolving/stable Decision Making: Moderate Goals: N/A. PT evaluation and 1-2 treatment sessions only for functional mobility training using recommended AD and for HEP instruction. Plan of Care/Treatment Plan: N/A. PT evaluation and 1-2 treatment session only for functional mobility training using recommended AD and for HEP instruction. DISCHARGE RECOMMENDATIONS: Home with HEP and outpatient PT as scheduled when medically appropriate per MD. Recommend patient utilize bilateral canes at home initially for stability. TREATMENT CODE/TIME: 89922/[id number] Thank you for the opportunity to participate in the care of this patient. Roxy Johnson PT [facility]
== END 2025-01-19 15:16 | disposition home or self-care (01) ==
LOC: SUR 08:24
PROVIDERS: PCP Nurse Practitioner Family; Visit Provider Student in an Organized Health Care Education/Training Program
PROC: (CPT 27447; principal; 2025-01-19 10:45)
DX: M17.12 Unilateral primary osteoarthritis, left knee (principal); G89.18 Other acute postprocedural pain
CPT/HCPCS: 20985; 27447; 64447; 97162; C1776; J0665; J0666; J0690; J1100; J2371; J2401; J2405; J2704; J3010

== ENCOUNTER 2025-02-01 11:12 | Outpatient (CLI) | payer MEDICARE, SELFPAY ==
--- NOTE | 2025-02-01 10:30 | DI.RAD_ITS ---
Exam(s) XR KNEE LT 1V XR STANDING ALIGNMENT EXAM: XR STANDING ALIGNMENT CLINICAL HISTORY: 1ST POST OP S/P L TKA. TECHNIQUE: 2D digital imaging was performed. Standing AP views were performed from the pelvis through the ankles. COMPARISON: CR XR STANDING ALIGNMENT from 12/17/2024 CR XR KNEE LT 1V from 02/01/2025 FINDINGS: BONES: No acute fracture is present. No bony destructive lesion is seen. Leg length discrepancy: No significant overall leg length discrepancy. JOINTS: Knees: Stable appearance of right knee prosthesis. Status post placement left knee prosthesis which show satisfactory alignment. The ankle joints are unremarkable. The hip joints show mild degenerative changes. SOFT TISSUE: Norm vascular calcifications. Mild bilateral lower extremity edema, left greater than right. IMPRESSION: Bilateral total knee prostheses. No significant leg length discrepancy. DATA REPOSITORY: RADIATION DOSE DELIVERED:
== END 2025-02-01 11:13 | disposition home or self-care (01) ==
LOC: DIORS 11:12
PROVIDERS: PCP Nurse Practitioner Family; Visit Provider Physician Assistant
DX: Z47.1 Aftercare following joint replacement surgery (principal); Z96.653 Presence of artificial knee joint, bilateral; M25.562 Pain in left knee
CPT/HCPCS: 99024; 73560; 77073

== ENCOUNTER → 2025-03-04 10:15 | Outpatient (BNVA) | payer MEDICARE, SELFPAY | PROVIDERS: PCP Nurse Practitioner Family; Referring Provider Nurse Practitioner Family; Visit Provider Physician Assistant | DX: Z47.1 Aftercare following joint replacement surgery (principal); Z96.653 Presence of artificial knee joint, bilateral | CPT/HCPCS: 99024 ==

== ENCOUNTER 2025-03-08 03:42 | Outpatient (RCR) | payer MEDICARE, SELFPAY ==
[2025-03-08] MEDS: BENRALIZUMAB 30 MG/ML SC (08:26)
== END 2025-03-14 23:59 | disposition home or self-care (01) ==
LOC: INF 03:42
PROVIDERS: PCP Nurse Practitioner Family; Visit Provider Physician Assistant Surgical
DX: J45.20 Mild intermittent asthma, uncomplicated (principal)
CPT/HCPCS: 96372; J0517

== ENCOUNTER → 2025-04-05 13:42 | Outpatient (BNVA) | payer MEDICARE, SELFPAY | PROVIDERS: PCP Nurse Practitioner Family; Referring Provider Nurse Practitioner Family; Visit Provider Student in an Organized Health Care Education/Training Program | DX: Z47.1 Aftercare following joint replacement surgery (principal); Z96.653 Presence of artificial knee joint, bilateral | CPT/HCPCS: 99024 ==

== ENCOUNTER 2025-04-14 04:08 | Outpatient (CLI) | payer MEDICARE, SELFPAY ==
[2025-04-14 12:00] LABS: TSH (W/Ref FT4) 1.59 uIU/mL (0.36-3.74)
== END 2025-04-14 04:09 | disposition home or self-care (01) ==
PROVIDERS: PCP Nurse Practitioner Family; Referring Provider Nurse Practitioner Family; Visit Provider Nurse Practitioner Family
DX: E03.9 Hypothyroidism, unspecified (principal)
CPT/HCPCS: 36415; 84443

== ENCOUNTER → 2025-04-15 10:16 | Outpatient (BNVA) | payer MEDICARE, SELFPAY | PROVIDERS: PCP Nurse Practitioner Family; Referring Provider Nurse Practitioner Family; Visit Provider Student in an Organized Health Care Education/Training Program | DX: Z47.1 Aftercare following joint replacement surgery (principal); Z96.652 Presence of left artificial knee joint; R60.0 Localized edema | CPT/HCPCS: 99024 ==

== ENCOUNTER 2025-04-28 11:23 | Outpatient (CLI) | payer MEDICARE, SELFPAY ==
[2025-04-28 11:29] LABS: HCT 36.0 % (40.0-50.0); HGB 11.4 g/dL (13.5-17.5); MCH 30.7 pg (27.0-33.0); MCHC 31.7 % (32.0-36.0); MCV 97 fL (80-95); MPV 9.3 fL (8.0-11.0); Platelet Count 315 10^3/uL (130-400); RBC 3.71 10^6/uL (4.36-5.78); RDW 13.2 % (11.8-14.1); RDW-SD 47.2 fL; WBC 9.97 10^3/uL (4.4-10.8)
[2025-04-28 12:22] LABS: Vitamin B12 > 2000 pg/mL (193-986)
[2025-04-28 13:10] LABS: Lab Add On Test DONE
[2025-04-28 13:27] LABS: Iron 53 ug/dL (65-175)
[2025-04-28 13:50] LABS: Ferritin 22 ng/mL (26-388)
== END 2025-04-28 11:24 | disposition home or self-care (01) ==
LOC: LBO 11:23
PROVIDERS: PCP Nurse Practitioner Family; Visit Provider Nurse Practitioner Family
DX: D64.9 Anemia, unspecified (principal)
CPT/HCPCS: 36415; 85027; 82607; 82728; 83540

== ENCOUNTER → 2025-05-18 08:51 | Outpatient (BNVA) | payer MEDICARE, SELFPAY | PROVIDERS: PCP Nurse Practitioner Family; Referring Provider Nurse Practitioner Family; Visit Provider Internal Medicine Pulmonary Disease | DX: J45.50 Severe persistent asthma, uncomplicated (principal); R91.1 Solitary pulmonary nodule; J32.9 Chronic sinusitis, unspecified; Z87.891 Personal history of nicotine dependence; D72.19 Other eosinophilia | CPT/HCPCS: 99214 ==

== ENCOUNTER 2025-06-28 00:39 | Outpatient (RCR) | payer MEDICARE, SELFPAY ==
[2025-06-28] MEDS: BENRALIZUMAB 30 MG/ML SC (08:10)
== END 2025-07-14 23:59 | disposition home or self-care (01) ==
LOC: INF 00:39
PROVIDERS: PCP Nurse Practitioner Family; Visit Provider Physician Assistant Surgical
DX: J45.50 Severe persistent asthma, uncomplicated (principal)
CPT/HCPCS: 96372; J0517